=== PATIENT | female | born 1970 | race African-American/Black ===

== ENCOUNTER 2017-07-02 10:56 | Day surgery (SDC) | payer BC ==
[~2017-07-02] VITALS: Ht 180.3 cm; Wt 118.0 kg
[~2017-07-02 10:56] MED LIST: CALC-962 PO; CITA20TA7 PO; GABA-488 PO; HYDR25TA4 PO; LANS30CA43 PO; LETR2.5T5 PO; LOSA50TA36 PO; POTA10TA36 PO; VITA400C58 PO
--- OUTSIDE RECORDS SUMMARY | 2017-07-02 11:03 | XMS REPORT ---
Author Author Allegra Pineda [facility] Address [address] [place] [id number] Care Team Providers Care Finance Mgr Name Role Phone Allegra Pineda PCP Unavailable Allergies and Adverse Reactions Name Reaction Notes clobetasol rash Plan of Treatment Planned Activity Comments Planned Date Planned Time Plan/Goal MAMMOGRAM SCREENING 10/02/2011 12:00 AM THER/PROPH/DIAG INJ SC/IM 06/03/2012 12:00 AM STREP A ASSAY W/OPTIC 07/10/2014 12:00 AM Medications Active Name Start Date Estimated Completion Date SIG Comments losartan 50 mg oral tablet 11/06/2013 TAKE 1 TABLET BY MOUTH EVERY DAY losartan 50 mg oral tablet 11/07/2013 TAKE 1 TABLET BY MOUTH EVERY DAY hydrochlorothiazide 25 mg oral tablet 05/04/2014 TAKE 1/2 TABLET BY MOUTH DAILY losartan 50 mg oral tablet 08/13/2014 TAKE 1 TABLET BY MOUTH EVERY DAY Diflucan 100 mg oral tablet 09/17/2014 TAKE 1 TABLET BY ORAL ROUTE EVERY OTHER DAY Caltrate with Vitamin D3 600 mg(1,500mg) -800 unit oral tablet take 1 tablet by oral route daily Prevacid 30 mg oral capsule,delayed release(DR/EC) 03/28/2015 TAKE 1 CAPSULE (30 MG) BY ORAL ROUTE 2 TIMES PER DAY BEFORE MEALS hydrochlorothiazide 25 mg oral tablet 04/04/2015 TAKE 1/2 TABLET BY MOUTH DAILY Celexa 20 mg oral tablet take 1 tablet (20 mg) by oral route once daily gabapentin 300 mg oral capsule take 1 capsule (300 mg) by oral route 3 times per day losartan 50 mg oral tablet 05/06/2015 TAKE 1 TABLET BY MOUTH EVERY DAY acyclovir 400 mg oral tablet 06/30/2015 TAKE (1) TABLET THREE TIMES DAILY DIRECTED. letrozole 2.5 mg oral tablet take 1 tablet (2.5 mg) by oral route once daily vitamin E oral aspirin 81 mg oral tablet,chewable chew 1 tablet (81 mg) by oral route once daily Zovirax 5 % topical ointment 02/25/2016 APPLY TO THE AFFECTED AREA 3 TIMES PER DAY hydrochlorothiazide 25 mg oral tablet 02/25/2016 TAKE 1/2 TABLET BY MOUTH DAILY metformin 500 mg oral tablet extended release 24hr 03/17/2016 take 1 tablet (500 mg) by oral route once daily with the main meal of the day Prevacid 30 mg oral capsule,delayed release(DR/EC) 04/10/2016 TAKE 1 CAPSULE (30 MG) BY ORAL ROUTE 2 TIMES PER DAY BEFORE MEALS phentermine 37.5 mg oral tablet 04/17/2016 05/17/2016 take 1 tablet (37.5 mg) by oral route once daily before breakfast for 30 days Name Start Date Expiration Date SIG Comments Zithromax 250 mg oral tablet 10/31/2010 11/05/2010 take 2 tablets (500 mg) by oral route once daily for 1 day then 1 tablet (250 mg) by oral route once daily for 4 days metronidazole 500 mg oral tablet 04/27/2012 05/02/2012 take 1 tablet (500 mg) by oral route 2 times per day for 5 days phentermine 37.5 mg oral tablet 10/07/2012 11/06/2012 take 1 tablet (37.5 mg) by oral route once daily before breakfast for 30 days acyclovir 400 mg oral tablet 12/01/2012 04/12/2013 TAKE (1) TABLET THREE TIMES DAILY DIRECTED. ibuprofen 800 mg oral tablet 03/02/2013 03/27/2013 TAKE ONE TABLET BY MOUTH EVERY 6 HOURS NEEDED Zithromax Z-Chris 250 mg oral tablet 08/07/2013 08/12/2013 take 2 tablets ( 500 mg) by oral route once daily for 1 day then 1 tablet (250 mg) by oral route once daily for 4 days amoxicillin-pot clavulanate 500-125 mg oral tablet 08/15/2013 08/22/2013 take 1 tablet by oral route every 12 hours for 7 days Flagyl 500 mg oral tablet 09/15/2013 09/22/2013 take 1 tablet by oral route 2 times a day for 7 days Tamiflu 75 mg oral capsule 10/24/2013 10/29/2013 take 1 capsule (75 mg) by oral route 2 times per day for 5 days Levaquin 500 mg oral tablet 10/24/2013 10/31/2013 take 1 tablet (500 mg) by oral route once daily for 7 days amoxicillin 500 mg oral capsule 12/07/2013 12/14/2013 take 1 capsule (500 mg) by oral route every 8 hours for 7 days Diflucan 150 mg oral tablet 12/07/2013 take 1 tablet (150 mg) by oral route once hydrochlorothiazide 25 mg oral tablet 12/22/2013 12/17/2014 take 1 tablet by oral route daily for 90 days Bactrim DS 800-160 mg oral tablet 01/04/2014 01/11/2014 take 1 tablet by oral route every 12 hours for 7 days amoxicillin 500 mg oral capsule take 1 capsule (500 mg) by oral route 3 times per day for 10 days acyclovir 400 mg oral tablet 03/13/2014 TAKE (1) TABLET THREE TIMES DAILY DIRECTED. Cipro 500 mg oral tablet 05/15/2014 05/20/2014 take 1 tablet (500 mg) by oral route every 12 hours for 5 days Diflucan 100 mg oral tablet 05/15/2014 take 1 tablet by oral route every other day Augmentin 500-125 mg oral tablet 06/01/2014 take 1 tablet by oral route every 12 hours Cipro 500 mg oral tablet 09/17/2014 09/22/2014 take 1 tablet (500 mg) by oral route every 12 hours for 5 days Reglan 10 mg oral tablet 1 po q4HR PRN Zofran ODT 8 mg oral tablet,disintegrating 1 po q8HR PRN nausea Arimidex 1 mg oral tablet take 1 tablet (1 mg) by oral route once daily clarithromycin 250 mg oral tablet 12/06/2014 12/13/2014 take 1 tablet (250 mg ) by oral route every 12 hours for 7 days amoxicillin 500 mg oral capsule 01/04/2015 01/11/2015 take 1 capsule (500 mg) by oral route 3 times per day for 7 days prednisone 20 mg oral tablet 01/04/2015 01/10/2015 Take 3 tabs x 2 days; then Take 2 tabs x 2 days; then Take 1 tab x 2 days. clarithromycin 500 mg oral tablet 02/08/2015 02/15/2015 take 1 tablet (500 mg) by oral route every 12 hours for 7 days Diflucan 100 mg oral tablet 04/30/2015 TAKE 1 TABLET BY ORAL ROUTE EVERY OTHER DAY triamcinolone acetonide 0.1 % topical cream 06/21/2015 apply a thin layer to the affected area(s) by topical route 2 times per day phentermine 37.5 mg oral tablet 10/11/2015 11/10/2015 take 1 tablet (37.5 mg) by oral route once daily before breakfast for 30 daysDx: Short term weight loss Discontinued Name Start Date Discontinued Date SIG Comments Kapidex 60 mg oral capsule,biphase delayed releas 07/15/2009 01/02/2011 TAKE 1 CAPSULE BY MOUTH EVERY DAY Zovirax 5 % topical ointment 03/04/2010 10/17/2010 apply to affected area by external route 3 times a day pantoprazole 40 mg oral tablet,delayed release (DR/EC) 12/10/1979 04/01/2012 take 1 tablet (40 mg) by oral route once daily Zovirax 5 % topical ointment 06/29/2011 04/01/2012 apply to the affected area (s) by topical route 3 times per day Tessalon 200 mg oral capsule 10/02/2011 04/01/2012 take 1 capsule (200 mg) by oral route 3 times per day as needed phentermine 37.5 mg oral tablet 10/02/2011 04/01/2012 take 1 tablet (37.5 mg) by oral route once daily before breakfast for 30 daysDx: Short term weight loss not taking now promethazine 25 mg oral tablet 01/14/2012 04/01/2012 take 1 tablet by oral route every 6 hours as needed sumatriptan succinate 100 mg oral tablet 05/05/2012 06/13/2013 TAKE 1 TABLET BY MOUTH AT ONSET OF HEADACHE lansoprazole 30 mg oral capsule,delayed release(DR/EC) 07/13/2012 11/08/2012 take 1 capsule by oral route 2 times a day for 90 days Tessalon Perles 100 mg oral capsule 08/01/2012 10/07/2012 take 1 capsule by oral route 3 times a day as needed Flonase 50 mcg/actuation nasal spray,suspension 08/01/2012 10/07/2012 inhale 1 spray (50 mcg) in each nostril by intranasal route once daily Cozaar 50 mg oral tablet 08/04/2012 08/04/2013 take 1 tablet (50 mg) by oral route daily for 90 days generic on list N[place]zia 3 mg/2 mg-2 mg/ 2 mg-3 mg/1 mg oral tablet 11/17/2012 11/23/2012 take 1 tablet by oral route once daily for 28 days ibuprofen 800 mg oral tablet 03/02/2013 06/13/2013 TAKE ONE TABLET BY MOUTH EVERY 6 HOURS NEEDED aspirin 81 mg oral tablet,delayed release (DR/EC) 09/11/2013 take 1 tablet (81 mg) by oral route once daily Acid Manager Night PRN 09/11/2013 Sprintec (28) 0.25-35 mg-mcg oral tablet 11/23/2012 07/25/2013 take 1 tablet by oral route once daily Zovirax 5 % topical ointment 09/05/2013 11/09/2014 APPLY TO THE AFFECTED AREA 3 TIMES PER DAY penicillin V potassium 500 mg oral tablet 10/23/2013 10/24/2013 take 1 tablet (500 mg) by oral route 2 times per day for 7 days guaifenesin 600 mg oral tablet extended release 10/23/2013 12/11/2013 take 1 tablet (600 mg) by oral route every 12 hours as needed venlafaxine 37.5 mg oral capsule,extended release 24hr 02/28/2014 take 1 capsule (37.5 mg) by oral route once daily with food ibuprofen 800 mg oral tablet 01/01/2014 09/06/2015 TAKE ONE TABLET BY MOUTH EVERY 6 HOURS NEEDED Diflucan 100 mg oral tablet 02/09/2014 02/28/2014 take 1 tablet (100 mg) by oral route every other day Prevacid 30 mg oral capsule,delayed release(DR/EC) 02/19/2014 11/09/2014 take 1 capsule (30 mg) by oral route 2 times per day before meals Concerta 18 mg oral tablet extended release 24hr 03/09/2014 take 1 tablet ( 18 mg) by oral route once daily in the morning taking methlyphenidate tamoxifen 10 mg oral tablet 10/05/2014 persisten hot flashes, weight gain, vaginal dryness methylphenidate 10 mg oral capsule, ER biphasic 30-70 03/09/2014 take 1 capsule (10 mg) by oral route once daily in the morning before breakfast wronng instructions entered methylphenidate 10 mg oral capsule, ER biphasic 30-70 03/09/2014 06/12/2014 take 1 capsule by oral route daily as needed as needed for chronic fatigue Lomotil 2.5-0.025 mg oral tablet 06/05/2014 11/09/2014 take 2 tablets (5 mg) by oral route 3 times per day as needed guaifenesin 600 mg oral tablet extended release 07/18/2014 11/09/2014 take 1 tablet (600 mg) by oral route every 12 hours as needed loratadine 10 mg oral tablet 07/18/2014 11/09/2014 take 1 tablet (10 mg) by oral route once daily as needed triamcinolone acetonide 0.1 % topical cream 08/21/2014 11/09/2014 apply to affected area(s) by topical route BID Wednesday through Wednesday clobetasol 0.05 % topical cream 09/26/2014 11/09/2014 apply a thin layer to the affected area(s) by topical route 2 times per day Wednesday-Wednesday venlafaxine 37.5 mg oral capsule,extended release 24hr 11/09/2014 take 1 capsule (37.5 mg) by oral route once daily with food lansoprazole 30 mg oral capsule,delayed release(DR/EC) 04/19/2015 take 1 capsule (30 mg) by oral route once daily before a meal on list already Diflucan 100 mg oral tablet 10/25/2014 11/09/2014 TAKE 1 TABLET BY ORAL ROUTE EVERY OTHER DAY metronidazole 500 mg oral tablet 11/02/2014 11/09/2014 take 1 tablet by oral route 2 times a day for 7 days anastrozole 1 mg oral tablet 08/21/2015 take 1 tablet (1 mg) by oral route once daily benzonatate 200 mg oral capsule 12/06/2014 01/11/2015 take 1 capsule (200 mg) by oral route 3 times per day as needed fluconazole 100 mg oral tablet 01/11/2015 04/19/2015 take 1 tablet by oral route every other day fexofenadine 180 mg oral tablet 01/11/2015 04/19/2015 take 1 tablet (180 mg) by oral route once daily as needed guaifenesin 600 mg oral tablet extended release 12hr 01/11/2015 04/19/2015 take 1 tablet by oral route every 12 hours as needed for cough ketoconazole 2 % topical cream 04/19/2015 06/21/2015 apply to the affected area (s) by topical route 2 times per day terbinafine HCl 250 mg oral tablet 05/17/2015 06/21/2015 take 1 tablet (250 mg ) by oral route once daily for 30 days cyclobenzaprine 10 mg oral tablet 07/15/2015 07/26/2015 take 1 tablet (10 mg ) by oral route at bedtime as needed Cytotec 200 mcg oral tablet 08/22/2015 08/27/2015 take 2 tabs nite prior to procedure Diflucan 100 mg oral tablet 08/28/2015 09/06/2015 TAKE 1 TABLET BY ORAL ROUTE EVERY OTHER DAY diclofenac sodium 75 mg oral tablet,delayed release (DR/EC) 09/06/20152015 take 1 tablet (75 mg) by oral route 2 times per day with food ondansetron HCl 8 mg oral tablet 11/08/2015 03/13/2016 take 1 tablet (8 mg) by oral route every 8 hours Femara 2.5 mg oral tablet 03/13/2016 take 1 tablet (2.5 mg) by oral route once daily metronidazole 500 mg oral tablet 04/10/2016 04/17/2016 take 1 tablet (500 mg) by oral route every 12 hours for 7 days Problem List Description Status Onset Gastroesophageal Reflux Active Hypertension Active Abnormal Uterine Bleeding Active 11/13/2012 Breast Cancer Active 06/23/2013 Menopause ovarian failure Active 06/25/2014 Vitiligo Active 09/26/2014 Breast cancer Active 10/07/2014 Abnormal Breast Ultrasound Active 12/04/2014 Vital Signs Date Time BP-Sys(mm[Hg] BP-Ellen(mm[Hg]) HR(bpm) RR(rpm) Temp WT HT HC BMI BSA BMI Percentile O2 Sat(%) 04/17/2016 1:39:00 PM 130 mmHg 76 mmHg 67 bpm 18 rpm 98.4 F 250 lbs 69 in 36.92 kg/m2 2.35 m2 97 % 03/13/2016 1:48:00 PM 138 mmHg 70 mmHg 66 bpm 18 rpm 98 F 258 lbs 69 in 38.0995 kg/m 2.3869 m 98 % 03/03/2016 3:51:00 PM 113 mmHg 67 mmHg 64 bpm 96.6 F 257.25 lbs 69 in 37.99 kg/m2 2.38 m2 02/10/2016 3:09:00 PM 114 mmHg 76 mmHg 72 bpm 18 rpm 97.9 F 257 lbs 69 in 37.9519 kg/m 2.3823 m 98 % 10/11/2015 1:49:00 PM 124 mmHg 74 mmHg 55 bpm 17 rpm 98.1 F 255 lbs 69 in 37.66 kg/m2 2.37 m2 98 % 09/06/2015 2:12:00 PM 128 mmHg 70 mmHg 76 bpm 18 rpm 98.5 F 256 lbs 69 in 37.8042 kg/m 2.3776 m 99 % 08/27/2015 2:59:00 PM 117 mmHg 81 mmHg 76 bpm 97 F 256.375 lbs 69 in 37.86 kg/m2 2.38 m2 08/21/2015 2:59:00 PM 112 mmHg 74 mmHg 66 bpm 97.2 F 258 lbs 69 in 38.0995 kg/m 2.3869 m 08/06/2015 9:05:00 AM 135 mmHg 81 mmHg 81 bpm 97.2 F 251 lbs 69 in 37.07 kg/m2 2.35 m2 07/31/2015 8:38:00 AM 102 mmHg 72 mmHg 70 bpm 18 rpm 96.8 F 253 lbs 69 in 37.3612 kg/m 2.3637 m 100 % 07/26/2015 2:17:00 PM 130 mmHg 76 mmHg 82 bpm 16 rpm 97.8 F 69 in 98 % 07/15/2015 3:13:00 PM 138 mmHg 70 mmHg 65 bpm 20 rpm 98 F 251 lbs 69 in 37.0658 kg/m 2.3543 m 99 % 06/21/2015 1:49:00 PM 134 mmHg 72 mmHg 72 bpm 20 rpm 98.1 F 69 in 98 % 04/19/2015 1:32:00 PM 124 mmHg 72 mmHg 68 bpm 20 rpm 98.2 F 257 lbs 69 in 37.9519 kg/m 2.3823 m 98 % 02/08/2015 1:38:00 PM 132 mmHg 78 mmHg 63 bpm 20 rpm 98 F 259 lbs 69 in 38.25 kg/m2 2.39 m2 98 % 01/11/2015 2:08:00 PM 134 mmHg 78 mmHg 80 bpm 16 rpm 98.2 F 258 lbs 69 in 38.0995 kg/m 2.3869 m 100 % 01/04/2015 2:31:00 PM 122 mmHg 78 mmHg 62 bpm 16 rpm 96.4 F 250.25 lbs 69 in 36.96 kg/m2 2.35 m2 99 % 12/04/2014 10:53:00 AM 129 mmHg 71 mmHg 67 bpm 16 rpm 96.7 F 250 lbs 69 in 36.9182 kg/m 2.3496 m 11/09/2014 2:11:00 PM 138 mmHg 78 mmHg 58 bpm 20 rpm 98 F 252 lbs 69 in 37.21 kg/m2 2.36 m2 97 % 10/05/2014 12:18:00 PM 134 mmHg 9 mmHg 63 bpm 18 rpm 96.9 F 247 lbs 69 in 36.4751 kg/m 2.3355 m 07/10/2014 6:13:00 PM 110 mmHg 80 mmHg 63 bpm 18 rpm 98.9 F 237 lbs 69 in 35.00 kg/m2 2.29 m2 06/25/2014 2:47:00 PM 138 mmHg 65 mmHg 66 bpm 96.5 F 237 lbs 69 in 34.9984 kg/m 2.2877 m 06/12/2014 3:20:00 PM 123 mmHg 69 mmHg 64 bpm 95.5 F 235 lbs 69 in 34.70 kg/m2 2.28 m2 06/01/2014 2:57:00 PM 128 mmHg 92 mmHg 67 bpm 18 rpm 98 F 240 lbs 69 in 35.4414 kg/m 2.3021 m 99 % 03/09/2014 3:28:00 PM 132 mmHg 78 mmHg 60 bpm 20 rpm 98 F 236 lbs 69 in 34.85 kg/m2 2.28 m2 100 % 02/28/2014 9:40:00 AM 122 mmHg 72 mmHg 72 bpm 20 rpm 97.2 F 232.4 lbs 69 in 34.3191 kg/m 2.2654 m 97 % 12/22/2013 1:33:00 PM 130 mmHg 78 mmHg 76 bpm 20 rpm 98 F 239 lbs 69 in 35.29 kg/m2 2.30 m2 99 % 12/11/2013 3:57:00 PM 127 mmHg 65 mmHg 78 bpm 97 F 236 lbs 69 in 34.8508 kg/m 2.2829 m 12/07/2013 10:08:00 AM 112 mmHg 80 mmHg 64 bpm 16 rpm 96.3 F 234 lbs 98 % 10/24/2013 3:43:00 PM 128 mmHg 70 mmHg 104 bpm 22 rpm 101.6 F 226 lbs 69 in 33.374 kg/m 2.234 m 98 % 09/11/2013 10:20:00 AM 121 mmHg 67 mmHg 76 bpm 97.1 F 227 lbs 69 in 33.52 kg/m2 2.24 m2 08/04/2013 2:14:00 PM 122 mmHg 68 mmHg 78 bpm 20 rpm 97.8 F 224 lbs 69 in 33.0787 kg/m 2.2241 m 97 % 07/25/2013 9:04:00 AM 120 mmHg 78 mmHg 78 bpm 16 rpm 97 F 226 lbs 69 in 33.37 kg/m2 2.23 m2 07/18/2013 2:58:00 PM 134 mmHg 70 mmHg 72 bpm 18 rpm 98.1 F 232 lbs 69 in 34.2601 kg/m 2.2634 m 98 % 06/26/2013 3:41:00 PM 121 mmHg 79 mmHg 60 bpm 96.4 F 233 lbs 69 in 34.41 kg/m2 2.27 m2 06/23/2013 11:04:00 AM 110 mmHg 74 mmHg 80 bpm 16 rpm 232.312 lbs 69.5 in 33.8144 kg/m 2.2732 m 06/13/2013 11:30:00 AM 132 mmHg 83 mmHg 67 bpm 14 rpm 97.6 F 233 lbs 69 in 34.41 kg/m2 2.27 m2 05/19/2013 3:49:00 PM 134 mmHg 70 mmHg 70 bpm 20 rpm 98.1 F 238 lbs 69 in 35.1461 kg/m 2.2925 m 03/20/2013 3:57:00 PM 135 mmHg 85 mmHg 61 bpm 96.2 F 238 lbs 69 in 35.15 kg/m2 2.29 m2 11/17/2012 1:41:00 PM 126 mmHg 69 mmHg 66 bpm 96.4 F 243 lbs 69 in 35.8845 kg/m 2.3165 m 11/08/2012 10:56:00 AM 136 mmHg 84 mmHg 89 bpm 96.7 F 242 lbs 69 in 35.74 kg/m2 2.31 m2 10/07/2012 1:50:00 PM 128 mmHg 70 mmHg 72 bpm 18 rpm 98 F 248 lbs 69 in 36.6228 kg/m 2.3402 m 08/19/2012 2:14:00 PM 126 mmHg 70 mmHg 74 bpm 16 rpm 98.02 F 250 lbs 69 in 36.92 kg/m2 2.35 m2 08/01/2012 3:42:00 PM 125 mmHg 82 mmHg 72 bpm 20 rpm 96.3 F 251 lbs 69 in 37.0658 kg/m 2.3543 m 06/03/2012 2:39:00 PM 95 mmHg 6 mmHg 64 bpm 18 rpm 98 F 250 lbs 69 in 36.92 kg/m2 2.35 m2 100 % 05/06/2012 1:37:00 PM 102 mmHg 70 mmHg 61 bpm 18 rpm 97.6 F 249 lbs 68 in 37.8599 kg/m 2.3278 m 100 % 04/27/2012 3:02:00 PM 134 mmHg 76 mmHg 70 bpm 18 rpm 98 F 246 lbs 68 in 37.40 kg/m2 2.31 m2 04/01/2012 3:24:00 PM 122 mmHg 70 mmHg 76 bpm 18 rpm 98 F 246 lbs 68 in 37.4038 kg/m 2.3138 m 10/02/2011 1:32:00 PM 128 mmHg 70 mmHg 72 bpm 18 rpm 98.1 F 245 lbs 68 in 37.25 kg/m2 2.31 m2 08/28/2011 1:45:00 PM 118 mmHg 70 mmHg 07/31/2011 2:07:00 PM 124 mmHg 80 mmHg 66 bpm 16 rpm 98.1 F 248 lbs 68 in 37.71 kg/m2 2.32 m2 05/15/2011 1:37:00 PM 130 mmHg 72 mmHg 76 bpm 18 rpm 98.2 F 240 lbs 04/24/2011 1:32:00 PM 124 mmHg 78 mmHg 80 bpm 16 rpm 240.312 lbs 03/27/2011 3:41:00 PM 128 mmHg 70 mmHg 70 bpm 20 rpm 98.1 F 240 lbs 68 in 36.4915 kg/m 2.2854 m 02/06/2011 1:36:00 PM 128 mmHg 70 mmHg 72 bpm 18 rpm 98.2 F 243 lbs 68 in 36.95 kg/m2 2.30 m2 01/02/2011 1:53:00 PM 130 mmHg 76 mmHg 72 bpm 18 rpm 98.2 F 240 lbs 68 in 36.4915 kg/m 2.2854 m 11/14/2010 2:27:00 PM 118 mmHg 60 mmHg 70 bpm 18 rpm 97.8 F 240 lbs 68 in 36.49 kg/m2 2.29 m2 10/31/2010 3:17:00 PM 132 mmHg 70 mmHg 70 bpm 18 rpm 98.3 F 240 lbs 68 in 36.4915 kg/m 2.2854 m 10/17/2010 1:34:00 PM 132 mmHg 72 mmHg 70 bpm 18 rpm 98.1 F 241 lbs 68 in 36.64 kg/m2 2.29 m2 Social History Name Description Comments Alcohol Never Tobacco Never smoker 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#[id number] Reviewed 07/31/2015 12:00 AM Bicillin CR, 1.2 million units [facility]# 39206-128-97 Reviewed 08/06/2015 12:00 AM US EXAM PELVIC COMPLETE Returned 08/06/2015 12:00 AM SPECIMEN HANDLING OFFICE-LAB Reviewed 08/06/2015 12:00 AM CYTOPATH C/V THIN LAYER Returned 08/27/2015 12:00 AM BIOPSY OF UTERUS LINING Returned 09/06/2015 12:00 AM Orthopedic Consultation Reviewed 07/31/2011 12:00 AM MAMMOGRAM SCREENING Reviewed 01/06/2016 12:00 AM US EXAM PELVIC COMPLETE Returned 01/06/2016 12:00 AM TRANSVAGINAL US NON-OB Returned 02/10/2016 12:00 AM COMPLETE CBC W/AUTO DIFF WBC Returned 02/10/2016 12:00 AM URINE TEST Returned 02/10/2016 12:00 AM Type & Screen (PREOP) Returned 03/13/2016 12:00 AM ASSAY THYROID STIM HORMONE Reviewed 03/13/2016 12:00 AM ASSAY OF INSULIN Reviewed 03/13/2016 12:00 AM METABOLIC PANEL TOTAL CA Reviewed 03/13/2016 12:00 AM COMPLETE CBC W/AUTO DIFF WBC Reviewed 10/02/2011 12:00 AM Bicillin CR 1.2 million units IM [facility]#[id number] Reviewed 04/17/2016 12:00 AM Bicillin CR, 1.2 million units [facility]# 57974-347-09 Reviewed 04/01/2012 12:00 AM CYTOPATH C/V THIN LAYER Reviewed 04/04/2012 12:00 AM MAMMOGRAM SCREENING Reviewed 06/03/2012 12:00 AM Bicillin CR, Per 100,[address] [facility]# 72482-693-44 Reviewed 08/01/2012 12:00 AM THER/PROPH/DIAG INJ SC/IM Reviewed 08/01/2012 12:00 AM Decadron, Per [address] [facility]# [address]-53 Reviewed 08/01/2012 12:00 AM Depo-Medrol, Per 80 Mg [facility]#4603-5238-97 Reviewed 11/08/2012 12:00 AM CHYLMD TRACH DNA AMP PROBE Returned 11/08/2012 12:00 AM N.GONORRHOEAE DNA AMP PROB Returned 11/08/2012 12:00 AM ASSAY OF GONADOTROPIN (FSH) Returned 11/08/2012 12:00 AM ASSAY OF PROLACTIN Returned 11/08/2012 12:00 AM ASSAY THYROID STIM HORMONE Returned 11/08/2012 12:00 AM URINALYSIS AUTO W/SCOPE Returned 11/17/2012 12:00 AM BIOPSY OF UTERUS LINING Returned 05/19/2013 12:00 AM CYTOPATH C/V THIN LAYER Reviewed 05/19/2013 12:00 AM MAMMOGRAM SCREENING Reviewed 07/18/2013 12:00 AM Decadron [address] [facility]# [address]-27 Reviewed 07/18/2013 12:00 AM Depo-Medrol [address] [facility]#[address]-08 Reviewed 08/04/2013 12:00 AM Bicillin CR, 1.2 million units [facility]# 66141-655-53 Reviewed 12/11/2013 12:00 AM IMMUNOASSAY TUMOR CA 125 Returned 12/11/2013 12:00 AM US EXAM PELVIC COMPLETE Reviewed 12/19/2013 12:00 AM US EXAM PELVIC COMPLETE Returned 02/28/2014 12:00 AM URINALYSIS AUTO W/SCOPE Returned 02/28/2014 12:00 AM N.GONORRHOEAE DNA AMP PROB Returned 02/28/2014 12:00 AM CHLAMYDIA CULTURE Returned 02/28/2014 12:00 AM SMEAR WET M[place] SALINE/INK Returned 02/28/2014 12:00 AM TISSUE EXAM FOR FUNGI Returned 06/01/2014 12:00 AM Decadron [address] [facility]# [address]-82 Reviewed 06/01/2014 12:00 AM Depo-Medrol [address] [facility]#[address]-38 Reviewed 06/19/2014 12:00 AM US EXAM PELVIC COMPLETE Returned 06/12/2014 12:00 AM ASSAY THYROID STIM HORMONE Returned 06/12/2014 12:00 AM ASSAY OF GONADOTROPIN (FSH) Returned 06/12/2014 12:00 AM CYTOPATH C/V THIN LAYER Returned 06/12/2014 12:00 AM SPECIMEN HANDLING OFFICE-LAB Reviewed 11/09/2014 12:00 AM Breast ultrasound Reviewed 03/27/2011 12:00 AM CYTOPATH C/V THIN LAYER Reviewed 04/08/2011 12:00 AM MAMMOGRAM SCREENING Reviewed 04/02/2011 12:00 AM ASSAY OF ESTRADIOL Reviewed 04/02/2011 12:00 AM ASSAY OF GONADOTROPIN (FSH) Reviewed 04/23/2015 12:00 AM C-REACTIVE PROTEIN HS Reviewed Results Summary Data and Description Results 04/02/2011 9:50 PM ESTRADIOL 70.0 pg/mLFSH 3.10 mIU/mL 05/19/2011 4:10 PM WBC 8.4 RBC 4.22 HGB 11.40 g/dLHCT 35.70 %MCV 85.0 fLMCH 27.0 pgMCHC 31.90 g/dLRDW CV 13.70 %MPV 10.10 fLPLT 276 %NEUT 50.80 %%LYMP 38.40 %%MONO 9.30 %%EOS 1.40 %%BASO 0.10 %#NEUT 4.26 #LYMP 3.22 #MONO 0.78 #EOS 0.12 #BASO 0.01 FERRITIN 63.0 ng/mLT4 6.40 ug/dLTSH 1.320 uIU/mLVITAMIN B12 404.0 pg/mL 11/08/2012 12:30 PM TSH 1.050 uIU/mLFSH 5.50 mIU/mLCOLOR YELLOW APPEARANCE CLEAR SPEC GRAV <=1.005 pH 5.5 PROTEIN NEGATIVE GLUCOSE NEGATIVE KETONE NEGATIVE BILIRUBIN NEGATIVE BLOOD NEGATIVE NITRITE NEGATIVE LEUK SCREEN NEGATIVE CASTS/LPF NEGATIVE CRYSTALS NEGATIVE MUCOUS THRDS NEGATIVE BACTERIA FEW EPITH CELLS FEW SQUAMOUS TRICHOMONAS NEGATIVE YEAST NEGATIVE 06/19/2013 9:00 AM TEST UR NEGATIVE 07/11/2013 7:54 AM TEST UR NEGATIVE 12/11/2013 5:06 PM Cancer Antigen (CA) 125 5.0 U/mL 01/10/2014 7:35 AM GLUCOSE 106.0 mg/dLSODIUM 139.0 mmol/LPOTASSIUM 3.60 mmol/ LCHLORIDE 105.0 mmol/LCO2 26.0 mmol/LBUN 21.0 mg/dLCREATININE 1.30 mg/dLSGOT/ AST 12.0 IU/LSGPT/ALT 9.0 IU/LALK PHOS 55.0 IU/LTOTAL PROTEIN 6.80 g/dLALBUMIN 3.70 g/dLTOTAL BILI 0.50 mg/dLCALCIUM 9.0 mg/dLeGFR 44 WBC 4.7 RBC 3.50 HGB 10.20 g/dLHCT 31.40 %MCV 90.0 fLMCH 29.10 pgMCHC 32.50 g/dLRDW CV 14.20 %MPV 9.90 fLPLT 171 %NEUT 52.0 %%LYMP 34.0 %%MONO 11.60 %%EOS 2.20 %%BASO 0.20 %# NEUT 2.42 #LYMP 1.58 #MONO 0.54 #EOS 0.10 #BASO 0.01 02/28/2014 10:45 AM WET PREP NO TRICH SEEN CLUE CELLS NONE SEEN COLOR YELLOW APPEARANCE CLEAR SPEC GRAV <=1.005 pH 6.5 PROTEIN NEGATIVE GLUCOSE NEGATIVE KETONE NEGATIVE BILIRUBIN NEGATIVE BLOOD NEGATIVE NITRITE NEGATIVE LEUK SCREEN TRACE CASTS/LPF NEGATIVE CRYSTALS NEGATIVE MUCOUS THRDS NEGATIVE BACTERIA NEGATIVE EPITH CELLS FEW SQUAMOUS TRICHOMONAS NEGATIVE YEAST NEGATIVE Neisseria Gonorrhoeae NEGATIVE Chlamydia Trachomatis NEGATIVE 06/12/2014 4:30 PM FSH 27.30 mIU/mLTSH 1.350 uIU/mL 04/24/2015 6:30 PM CRP-HS 4.90 mg/L 06/25/2015 8:50 AM WBC 6.6 RBC 4.13 HGB 11.30 g/dLHCT 34.70 %MCV 84.0 fLMCH 27.40 pgMCHC 32.60 g/dLRDW CV 14.50 %MPV 9.40 fLPLT 211 %NEUT 58.40 %%LYMP 32.80 %%MONO 6.80 %%EOS 1.80 %%BASO 0.20 %#NEUT 3.88 #LYMP 2.18 #MONO 0.45 #EOS 0.12 #BASO 0.01 GLUCOSE 109.0 mg/dLSODIUM 140.0 mmol/LPOTASSIUM 3.50 mmol/ LCHLORIDE 103.0 mmol/LCO2 27.0 mmol/LBUN 16.0 mg/dLCREATININE 1.0 mg/dLSGOT/AST 13.0 IU/LSGPT/ALT 15.0 IU/LALK PHOS 84.0 IU/LTOTAL PROTEIN 6.80 g/dLALBUMIN 4.10 g/dLTOTAL BILI 0.30 mg/dLCALCIUM 9.80 mg/dLeGFR 59 CEA 0.70 ng/mLCA 27.29 22.70 U/mL 12/24/2015 8:12 AM GLUCOSE 95.0 mg/dLSODIUM 140.0 mmol/LPOTASSIUM 3.10 mmol/ LCHLORIDE 103.0 mmol/LCO2 26.0 mmol/LBUN 13.0 mg/dLCREATININE 0.90 mg/dLSGOT/ AST 13.0 IU/LSGPT/ALT 13.0 IU/LALK PHOS 81.0 IU/LTOTAL PROTEIN 6.80 g/dLALBUMIN 4.10 g/dLTOTAL BILI 0.30 mg/dLCALCIUM 9.40 mg/dLeGFR >60 mL/min/1.73mWBC 6.1 RBC 4.36 HGB 11.70 g/dLHCT 36.60 %MCV 84.0 fLMCH 26.80 pgMCHC 32.0 g/dLRDW CV 14.60 %MPV 9.20 fLPLT 224 %NEUT 56.30 %%LYMP 31.30 %%MONO 9.80 %%EOS 2.0 %%BASO 0.30 %#NEUT 3.46 #LYMP 1.92 #MONO 0.60 #EOS 0.12 #BASO 0.02 CEA 0.50 ng/mLCA 27.29 25.20 U/mL 02/14/2016 10:30 AM WBC 6.5 RBC 4.17 HGB 11.20 g/dLHCT 35.70 %MCV 86.0 fLMCH 26.90 pgMCHC 31.40 g/dLRDW CV 14.20 %MPV 9.10 fLPLT 256 %NEUT 52.50 %%LYMP 34.50 %%MONO 10.20 %%EOS 2.0 %%BASO 0.30 %#NEUT 3.40 #LYMP 2.23 #MONO 0.66 #EOS 0.13 #BASO 0.02 TEST UR NEGATIVE 03/14/2016 5:05 AM WBC 5.8 RBC 4.40 HGB 11.70 g/dLHCT 37.60 %MCV 86.0 fLMCH 26.60 pgMCHC 31.10 g/dLRDW CV 14.10 %MPV 9.70 fLPLT 220 %NEUT 43.70 %%LYMP 41.80 %%MONO 10.60 %%EOS 3.40 %%BASO 0.30 %#NEUT 2.55 #LYMP 2.44 #MONO 0.62 # EOS 0.20 #BASO 0.02 GLUCOSE 100.0 mg/dLSODIUM 142.0 mmol/LPOTASSIUM 3.20 mmol/ LCHLORIDE 104.0 mmol/LCO2 27.0 mmol/LBUN 14.0 mg/dLCREATININE 1.0 mg/dLCALCIUM 9.40 mg/dLeGFR 59 TSH 0.850 uIU/mL History Of Immunizations Not available. History of Past Illness Name Date of Onset Comments Hypertension Gastroesophageal Reflux Abnormal Uterine Bleeding 11/13/2012 Menopause ovarian failure 06/25/2014 Vitiligo 09/26/2014 Breast cancer 10/07/2014 Abnormal Breast Ultrasound 12/04/2014 Essential Hypertension Oct 17 2010 1:39PM Obesity Oct 17 2010 1:39PM Acute Pharyngitis Oct 31 2010 3:18PM Dietary Counseling Nov 14 2010 2:28PM Exercise Counseling Nov 14 2010 2:28PM Dietary Counseling Jan 02 2011 1:53PM Exercise Counseling Jan 02 2011 1:53PM Dietary Counseling Feb 06 2011 1:34PM Exercise Counseling Feb 06 2011 1:34PM Ganglion cyst, left wrist Feb 06 2011 1:34PM Leg cramps Feb 06 2011 1:34PM Dietary Counseling Mar 27 2011 3:15PM Exercise Counseling Mar 27 2011 3:15PM Routine gynecological examination Mar 27 2011 3:15PM Screening Examination for Breast Cancer Mar 27 2011 3:15PM Hot Flashes Apr 02 2011 12:30PM Left Carpal Tunnel Syndrome Apr 24 2011 1:30PM Tendonitis of left wrist Apr 24 2011 1:30PM Fatigue May 15 2011 1:34PM Left Otitis Media, Acute May 15 2011 1:34PM Dietary Counseling Jul 31 2011 2:11PM Exercise Counseling Jul 31 2011 2:11PM Dietary Counseling Oct 02 2011 1:34PM Exercise Counseling Oct 02 2011 1:34PM Bronchitis Oct 02 2011 1:34PM Routine gynecological examination Apr 01 2012 3:29PM Screening Examination for Breast Cancer Apr 01 2012 3:29PM Bacterial Vaginitis Apr 27 2012 3:05PM Tendonitis of left wrist May 06 2012 1:41PM Left Ulnar nerve entrapment May 06 2012 1:41PM Pharyngitis, Acute Jun 03 2012 2:45PM Cough Aug 01 2012 3:45PM Upper Respiratory Infections Aug 01 2012 3:45PM Obesity Aug 19 2012 2:16PM Dietary Counseling Oct 07 2012 1:53PM Exercise Counseling Oct 07 2012 1:53PM Abnormal Uterine Bleeding Nov 08 2012 11:09AM Left Lower Pelvic Pain Nov 08 2012 11:09AM Lower Back Pain Nov 08 2012 11:09AM Abnormal Uterine Bleeding Nov 17 2012 1:44PM Abnormal Uterine Bleeding Mar 20 2013 4:03PM Routine gynecological examination May 19 2013 3:54PM Screening Examination for Breast Cancer May 19 2013 3:54PM Abnormal mammogram with microcalcification Jun 13 2013 11:24AM Breast Cancer Jun 23 2013 11:44AM Abnormal Uterine Bleeding Jun 26 2013 3:47PM Bronchitis, Acute Jul 18 2013 3:01PM Bronchitis, Acute Aug 04 2013 2:17PM Pharyngitis, Acute Aug 04 2013 2:17PM Abnormal Uterine Bleeding Sep 11 2013 10:27AM Breast Cancer Sep 11 2013 10:27AM Influenza Oct 24 2013 3:43PM Abnormal Uterine Bleeding Dec 11 2013 4:04PM Breast Cancer Dec 11 2013 4:04PM Abnormal Uterine Bleeding Dec 12 2013 8:52AM Otitis Media, Acute Dec 07 2013 10:10AM Dependent Edema Dec 22 2013 1:38PM Vaginal Discharge Feb 28 2014 9:47AM Concern for Exposure to STD's Feb 28 2014 9:47AM Dysuria Feb 28 2014 9:47AM Fatigue Mar 09 2014 3:34PM Ganglion cyst of wrist, right Mar 09 2014 3:34PM Bronchitis, Acute Jun 01 2014 3:03PM Sinusitis, Acute Jun 01 2014 3:03PM Abnormal uterine bleeding Jun 12 2014 3:58PM Fibroids Jun 12 2014 3:58PM Abnormal uterine bleeding Jun 12 2014 3:26PM Breast Cancer Jun 12 2014 3:26PM Breast Cancer Jun 25 2014 2:51PM Menopause ovarian failure Jun 25 2014 2:51PM Acute pharyngitis Jul 10 2014 6:13PM Nasopharyngitis, Acute (Common Cold) Jul 10 2014 6:13PM Vitiligo Sep 26 2014 3:03PM Breast cancer Oct 07 2014 11:14AM Right Breast Mass Nov 09 2014 2:14PM Breast Cancer, Personal History Nov 09 2014 2:14PM Abnormal Breast Ultrasound Dec 04 2014 11:05AM Pharyngitis Jan 04 2015 2:38PM Bronchitis, Acute Jan 11 2015 2:10PM Bronchitis, Acute Feb 08 2015 1:41PM Hand eczema Apr 19 2015 1:35PM Screening for ischemic heart disease Apr 19 2015 1:35PM Screening for ischemic heart disease Apr 23 2015 5:18PM Eczema of both hands Jun 21 2015 1:53PM Right flank pain Jul 15 2015 3:15PM Left wrist tendonitis Jul 15 2015 3:15PM Left wrist tendonitis Jul 26 2015 2:21PM Fatigue Jul 26 2015 2:21PM Acute pharyngitis, unspecified etiology Jul 31 2015 8:41AM Routine gynecological examination Aug 06 2015 9:09AM Fibroids Aug 06 2015 10:16AM Endometrial stripe increased Aug 21 2015 3:03PM Thickened endometrium Aug 27 2015 3:02PM Left wrist tendonitis Sep 06 2015 2:16PM Tinnitus, left Oct 11 2015 1:51PM Postmenopausal vaginal bleeding Jan 01 2016 1:53PM Postmenopausal bleeding Feb 10 2016 4:01PM Postoperative Examination Following Surgery Mar 03 2016 3:54PM Fatigue Mar 13 2016 1:52PM Hypokalemia Mar 13 2016 1:52PM Weight gain Mar 13 2016 1:52PM Anemia, unspecified type Mar 13 2016 1:52PM Dietary Counseling Apr 17 2016 1:43PM Exercise Counseling Apr 17 2016 1:43PM Obesity (BMI 35.0-39.9 without comorbidity) Apr 17 2016 1:43PM Acute non-recurrent maxillary sinusitis Apr 17 2016 1:43PM Payers Insurance Name Company Name Plan Name Plan Number Policy Number Policy Group Number Start Date [facility] [id number] October History of Encounters Visit Date Visit Type Provider 03/03/[address] Allegra Pineda MD 02/19/[address] [facility] [address] Allegra Pineda MD 02/10/[address] Allegra Pineda MD 08/27/[address] Allegra Pineda MD 08/21/[address] Allegra Pineda MD 08/06/2015 Office visit 08/06/[address] Allegra Pineda MD 07/31/2015 Office visit Pepe Hannah DO 07/15/2015 Office visit Pepe Hannah DO 01/04/2015 Office visit Wicho Lomeli EDITOR NEWSPAPER 12/04/2014 Office visit Kulwant Bouman DO 10/05/2014 Procedures Kulwant Bouman DO 09/26/2014 Office visit Nelly Cardona MD 07/10/2014 Office visit Ayla Herrera APRN 06/25/2014 Office visit Jared Richey MD 06/21/2014 Office visit Nelly Cardona MD 06/12/2014 Office visit 06/12/2014 Office visit Jared Richey MD 05/10/2014 Office visit Nelly Cardona MD 02/28/2014 Office visit Shilpa Olson EDITOR NEWSPAPER 12/11/2013 Office visit Jared Richey MD 12/07/2013 Office visit Wicho Lomeli APRN 10/24/2013 Office visit Pepe Young DO 09/11/2013 Office visit Jared Richey MD 07/25/2013 Office visit Kulwant Bouman DO 07/18/2013 Office visit Pepe Hannah DO 07/11/2013 Surgery Kulwant Bouman DO 06/26/2013 Office visit Jared Richey MD 06/23/2013 Surgery Kulwant Bouman DO 06/19/2013 Surgery Kulwant Bouman DO 06/13/2013 Office visit Kulwant Bouman DO 06/09/2013 [facility] DO 03/20/2013 Office visit Jared Richey MD 11/17/2012 Procedures Jared Richey MD 11/08/2012 Office visit Jared Richey MD 08/01/2012 Office visit Shilpa Olson APRN
--- OUTSIDE RECORDS SUMMARY | 2017-07-02 11:05 | XMS REPORT ---
Author Author Allegra Pineda [facility] Address [address] [place] [id number] Care Team Providers Care Whale Fisherman Name Role Phone Allegra Pineda PCP Unavailable [...] TAKE 1 TABLET BY MOUTH EVERY DAY ibuprofen 800 mg oral tablet 01/01/2014 TAKE ONE TABLET BY MOUTH EVERY 6 HOURS NEEDED hydrochlorothiazide 25 mg oral tablet 05/04/2014 TAKE [...] (2.5 mg) by oral route once daily Name Start Date Expiration Date SIG Comments [...] per day phentermine 37.5 mg oral tablet 07/26/2015 08/25/2015 take 1 tablet (37.5 mg ) by oral route once daily before breakfast [...] mg) by oral route once daily Acid Windows Software Engineer PRN 09/11/2013 Sprintec (28) 0.25-35 mg-mcg oral [...] by oral route once daily with food Diflucan 100 mg oral tablet 02/09/2014 02/28/2014 [...] once daily in the morning before breakfast wrjason instructions entered methylphenidate 10 mg oral capsule, [...] take 2 tabs nite prior to procedure Problem List Description Status Onset Gastroesophageal Reflux Active Hypertension Active Abnormal Uterine Bleeding Active 11/13/2012 Breast Cancer Active 06/23/2013 Menopause ovarian failure Active 06/25/2014 Vitiligo Active 09/26/2014 Breast cancer Active 10/07/2014 Abnormal Breast Ultrasound Active 12/04/2014 Vital Signs Date Time BP-Sys(mm[Hg] BP-Ellen(mm[Hg]) HR(bpm) RR(rpm) Temp WT HT HC BMI BSA BMI Percentile O2 Sat(%) 08/27/2015 2:59:00 PM 117 mmHg 81 mmHg [...] Comments Alcohol Never Tobacco Never smoker 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[employer] Caffeine Current every day History of Procedures Date Ordered Description Order Status 05/15/2011 12:00 AM COMPLETE CBC W/AUTO DIFF WBC Reviewed 05/15/2011 12:00 AM VITAMIN B-12 Reviewed 05/15/2011 12:00 AM ASSAY OF FERRITIN Reviewed 05/15/2011 12:00 AM ASSAY THYROID STIM HORMONE Reviewed 05/15/2011 12:00 AM ASSAY OF TOTAL THYROXINE Reviewed 05/15/2011 12:00 AM Bicillin CR 1.2 million units IM [facility]#[id number] Reviewed 07/31/2015 12:00 AM Bicillin CR, 1.2 million units [facility]# 99055-292-41 Reviewed 08/06/2015 12:00 AM US EXAM PELVIC COMPLETE Returned 08/06/2015 12:00 AM SPECIMEN HANDLING OFFICE-LAB Reviewed 08/06/2015 12:00 AM CYTOPATH C/V THIN LAYER Returned 07/31/2011 12:00 AM MAMMOGRAM SCREENING Reviewed 10/02/2011 12:00 AM Bicillin CR 1.2 million units IM [facility]#[id number] Reviewed 04/01/2012 12:00 AM CYTOPATH C/V THIN LAYER Reviewed 04/04/2012 12:00 AM MAMMOGRAM SCREENING Reviewed 06/03/2012 12:00 AM Bicillin CR, Per 100,000 units [facility]# 53291-532-37 Reviewed 08/01/2012 12:00 AM THER/PROPH/DIAG INJ SC/IM Reviewed 08/01/2012 12:00 AM Decadron, Per 1 Mg [facility]# [address]-59 Reviewed 08/01/2012 12:00 AM Depo-Medrol, Per 80 Mg [facility]#9645-6020-39 Reviewed 11/08/2012 12:00 AM CHYLMD TRACH DNA [...] Reviewed 07/18/2013 12:00 AM Decadron 8 mg [facility]# [address]-33 Reviewed 07/18/2013 12:00 AM Depo-Medrol 80 mg [facility]#[address]-39 Reviewed 08/04/2013 12:00 AM Bicillin CR, 1.2 million units [facility]# 99937-235-26 Reviewed 12/11/2013 12:00 AM IMMUNOASSAY TUMOR CA [...] Returned 06/01/2014 12:00 AM Decadron 8 mg [facility]# [address]-34 Reviewed 06/01/2014 12:00 AM Depo-Medrol 80 mg [facility]#[address]-85 Reviewed 06/19/2014 12:00 AM US EXAM PELVIC [...] 59 CEA 0.70 ng/mLCA 27.29 22.70 U/mL History Of Immunizations Not available. History of [...] 3:03PM Thickened endometrium Aug 27 2015 3:02PM Payers Insurance Name Company Name Plan Name Plan Number Policy Number Policy Group Number Start Date [facility] [id number] October History of Encounters Visit Date Visit Type Provider 08/27/[address] Allegra Pineda MD 08/21/[address] Allegra Pineda MD 08/06/2015 Office visit 08/06/[address] Allegra Pineda MD 07/31/2015 Office visit Pepe Young DO 07/15/2015 Office visit Pepe Young DO 01/04/2015 Office visit Wicho Lomeli CUSTOM DECORATING CONSULTANT 12/04/2014 Office visit Kulwant Bouman DO 10/05/2014 Procedures Kulwant Bouman DO 09/26/2014 Office visit Nelly Cardona MD 07/10/2014 Office visit Ayla Herrera APRN 06/25/2014 Office visit Jared Richey MD 06/21/2014 Office visit Nelly Cardona MD 06/12/2014 Office visit 06/12/2014 Office visit Jared Richey MD 05/10/2014 Office visit Nelly Cardona MD 02/28/2014 Office visit Shilpa Olson APRN 12/11/2013 Office visit Jared Richey MD 12/07/2013 Office visit Wicho Lomeli APRN 10/24/2013 Office visit Pepe Young DO 09/11/2013 Office visit Jared Richey MD 07/25/2013 Office visit Kulwant Hernandez DO 07/18/2013 Office visit Pepe Young DO 07/11/2013 Surgery Kulwant Bouman DO 06/26/2013 Office visit Jared Richey MD 06/23/2013 Surgery Kulwant Bouman DO 06/19/2013 Surgery Kulwant Bouman DO 06/13/2013 Office visit Kulwant Hilluman DO 06/09/2013 [facility] DO 03/20/2013 Office visit Jared Richey MD 11/17/2012 Procedures Jared Richey MD 11/08/2012 Office visit Jared Richey MD 08/01/2012 Office visit Shilpa Olson APRN
--- OUTSIDE RECORDS SUMMARY | 2017-07-02 11:06 | XMS REPORT ---
Author Author Wicho Lomeli [facility] Address [address] [place], [place] [id number] Care Team Providers Care Stapler Hand Name Role Phone Wicho Lomeli PCP Allergies and Adverse Reactions Name Reaction Notes clobetasol rash Plan of Treatment Planned Activity Comments Planned Date Planned Time Plan/Goal MAMMOGRAM SCREENING 10/02/2011 12:00 AM THER/PROPH/DIAG INJ SC/IM 06/03/2012 12:00 AM STREP A ASSAY W/OPTIC 07/10/2014 12:00 AM C-REACTIVE PROTEIN HS 04/23/2015 12:00 AM Medications Active Name Start Date [...] TABLET BY ORAL ROUTE EVERY OTHER DAY anastrozole 1 mg oral tablet take 1 tablet (1 mg) by oral route once daily Caltrate-600 + D Vit D3 (800) 600 mg(1,500mg) -800 unit oral tablet take [...] by oral route 3 times per day ketoconazole 2 % topical cream 04/19/2015 apply to the affected area(s) by topical route 2 times per day Name Start Date Expiration Date SIG Comments [...] route every 12 hours for 7 days Discontinued Name Start Date Discontinued Date SIG [...] mg) by oral route once daily Acid Car Stower PRN 09/11/2013 Sprintec (28) 0.25-35 mg-mcg oral [...] once daily in the morning before breakfast wronn instructions entered methylphenidate 10 mg oral capsule, [...] 2 times a day for 7 days benzonatate 200 mg oral capsule 12/06/2014 01/11/2015 [...] every 12 hours as needed for cough Problem List Description Status Onset Gastroesophageal Reflux Active Hypertension Active Abnormal Uterine Bleeding Active 11/13/2012 Breast Cancer Active 06/23/2013 Menopause ovarian failure Active 06/25/2014 Vitiligo Active 09/26/2014 Breast cancer Active 10/07/2014 Abnormal Breast Ultrasound Active 12/04/2014 Vital Signs Date Time BP-Sys(mm[Hg] BP-Ellen(mm[Hg]) HR(bpm) RR(rpm) Temp WT HT HC BMI BSA BMI Percentile O2 Sat(%) 04/19/2015 1:32:00 PM 124 mmHg 72 mmHg 68 bpm 20 rpm 98.2 F 257 lbs 69 in 37.95 kg/m2 2.38 m2 98 % 02/08/2015 1:38:00 PM 132 mmHg 78 mmHg 63 bpm 20 rpm 98 F 259 lbs 69 in 38.2472 kg/m 2.3915 m 98 % 01/11/2015 2:08:00 PM 134 mmHg 78 mmHg 80 bpm 16 rpm 98.2 F 258 lbs 69 in 38.10 kg/m2 2.39 m2 100 % 01/04/2015 2:31:00 PM 122 mmHg 78 mmHg 62 bpm 16 rpm 96.4 F 250.25 lbs 69 in 36.9551 kg/m 2.3508 m 99 % 12/04/2014 10:53:00 AM 129 mmHg 71 mmHg 67 bpm 16 rpm 96.7 F 250 lbs 69 in 36.92 kg/m2 2.35 m2 11/09/2014 2:11:00 PM 138 mmHg 78 mmHg 58 bpm 20 rpm 98 F 252 lbs 69 in 37.2135 kg/m 2.359 m 97 % 10/05/2014 12:18:00 PM 134 mmHg 9 mmHg 63 bpm 18 rpm 96.9 F 247 lbs 69 in 36.48 kg/m2 2.34 m2 07/10/2014 6:13:00 PM 110 mmHg 80 mmHg 63 bpm 18 rpm 98.9 F 237 lbs 69 in 34.9984 kg/m 2.2877 m 06/25/2014 2:47:00 PM 138 mmHg 65 mmHg 66 bpm 96.5 F 237 lbs 69 in 35.00 kg/m2 2.29 m2 06/12/2014 3:20:00 PM 123 mmHg 69 mmHg 64 bpm 95.5 F 235 lbs 69 in 34.7031 kg/m 2.278 m 06/01/2014 2:57:00 PM 128 mmHg 92 mmHg 67 bpm 18 rpm 98 F 240 lbs 69 in 35.44 kg/m2 2.30 m2 99 % 03/09/2014 3:28:00 PM 132 mmHg 78 mmHg 60 bpm 20 rpm 98 F 236 lbs 69 in 34.8508 kg/m 2.2829 m 100 % 02/28/2014 9:40:00 AM 122 mmHg 72 mmHg 72 bpm 20 rpm 97.2 F 232.4 lbs 69 in 34.32 kg/m2 2.27 m2 97 % 12/22/2013 1:33:00 PM 130 mmHg 78 mmHg 76 bpm 20 rpm 98 F 239 lbs 69 in 35.2938 kg/m 2.2973 m 99 % 12/11/2013 3:57:00 PM 127 mmHg 65 mmHg 78 bpm 97 F 236 lbs 69 in 34.85 kg/m2 2.28 m2 12/07/2013 10:08:00 AM 112 mmHg 80 mmHg 64 bpm 16 rpm 96.3 F 234 lbs 98 % 10/24/2013 3:43:00 PM 128 mmHg 70 mmHg 104 bpm 22 rpm 101.6 F 226 lbs 69 in 33.37 kg/m2 2.23 m2 98 % 09/11/2013 10:20:00 AM 121 mmHg 67 mmHg 76 bpm 97.1 F 227 lbs 69 in 33.5217 kg/m 2.2389 m 08/04/2013 2:14:00 PM 122 mmHg 68 mmHg 78 bpm 20 rpm 97.8 F 224 lbs 69 in 33.08 kg/m2 2.22 m2 97 % 07/25/2013 9:04:00 AM 120 mmHg 78 mmHg 78 bpm 16 rpm 97 F 226 lbs 69 in 33.374 kg/m 2.234 m 07/18/2013 2:58:00 PM 134 mmHg 70 mmHg 72 bpm 18 rpm 98.1 F 232 lbs 69 in 34.26 kg/m2 2.26 m2 98 % 06/26/2013 3:41:00 PM 121 mmHg 79 mmHg 60 bpm 96.4 F 233 lbs 69 in 34.4077 kg/m 2.2683 m 06/23/2013 11:04:00 AM 110 mmHg 74 mmHg 80 bpm 16 rpm 232.312 lbs 69.5 in 33.81 kg/m2 2.27 m2 06/13/2013 11:30:00 AM 132 mmHg 83 mmHg 67 bpm 14 rpm 97.6 F 233 lbs 69 in 34.4077 kg/m 2.2683 m 05/19/2013 3:49:00 PM 134 mmHg 70 mmHg 70 bpm 20 rpm 98.1 F 238 lbs 69 in 35.15 kg/m2 2.29 m2 03/20/2013 3:57:00 PM 135 mmHg 85 mmHg 61 bpm 96.2 F 238 lbs 69 in 35.1461 kg/m 2.2925 m 11/17/2012 1:41:00 PM 126 mmHg 69 mmHg 66 bpm 96.4 F 243 lbs 69 in 35.88 kg/m2 2.32 m2 11/08/2012 10:56:00 AM 136 mmHg 84 mmHg 89 bpm 96.7 F 242 lbs 69 in 35.7368 kg/m 2.3117 m 10/07/2012 1:50:00 PM 128 mmHg 70 mmHg 72 bpm 18 rpm 98 F 248 lbs 69 in 36.62 kg/m2 2.34 m2 08/19/2012 2:14:00 PM 126 mmHg 70 mmHg 74 bpm 16 rpm 98.02 F 250 lbs 69 in 36.9182 kg/m 2.3496 m 08/01/2012 3:42:00 PM 125 mmHg 82 mmHg 72 bpm 20 rpm 96.3 F 251 lbs 69 in 37.07 kg/m2 2.35 m2 06/03/2012 2:39:00 PM 95 mmHg 6 mmHg 64 bpm 18 rpm 98 F 250 lbs 69 in 36.9182 kg/m 2.3496 m 100 % 05/06/2012 1:37:00 PM 102 mmHg 70 mmHg 61 bpm 18 rpm 97.6 F 249 lbs 68 in 37.86 kg/m2 2.33 m2 100 % 04/27/2012 3:02:00 PM 134 mmHg 76 mmHg 70 bpm 18 rpm 98 F 246 lbs 68 in 37.4038 kg/m 2.3138 m 04/01/2012 3:24:00 PM 122 mmHg 70 mmHg 76 bpm 18 rpm 98 F 246 lbs 68 in 37.40 kg/m2 2.31 m2 10/02/2011 1:32:00 PM 128 mmHg 70 mmHg 72 bpm 18 rpm 98.1 F 245 lbs 68 in 37.2517 kg/m 2.3091 m 08/28/2011 1:45:00 PM 118 mmHg 70 mmHg 07/31/2011 2:07:00 PM 124 mmHg 80 mmHg 66 bpm 16 rpm 98.1 F 248 lbs 68 in 37.7079 kg/m 2.3232 m 05/15/2011 1:37:00 PM 130 mmHg 72 mmHg 76 bpm 18 rpm 98.2 F 240 lbs 04/24/2011 1:32:00 PM 124 mmHg 78 mmHg 80 bpm 16 rpm 240.312 lbs 03/27/2011 3:41:00 PM 128 mmHg 70 mmHg 70 bpm 20 rpm 98.1 F 240 lbs 68 in 36.49 kg/m2 2.29 m2 02/06/2011 1:36:00 PM 128 mmHg 70 mmHg 72 bpm 18 rpm 98.2 F 243 lbs 68 in 36.9476 kg/m 2.2996 m 01/02/2011 1:53:00 PM 130 mmHg 76 mmHg 72 bpm 18 rpm 98.2 F 240 lbs 68 in 36.49 kg/m2 2.29 m2 11/14/2010 2:27:00 PM 118 mmHg 60 mmHg 70 bpm 18 rpm 97.8 F 240 lbs 68 in 36.4915 kg/m 2.2854 m 10/31/2010 3:17:00 PM 132 mmHg 70 mmHg 70 bpm 18 rpm 98.3 F 240 lbs 68 in 36.49 kg/m2 2.29 m2 10/17/2010 1:34:00 PM 132 mmHg 72 mmHg 70 bpm 18 rpm 98.1 F 241 lbs 68 in 36.6435 kg/m 2.2901 m Social History Name Description Comments Alcohol Never Tobacco Never smoker 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[employer] Caffeine Current every day History of Procedures Date Ordered Description Order Status 05/15/2011 12:00 AM COMPLETE CBC W/AUTO DIFF WBC Reviewed 05/15/2011 12:00 AM VITAMIN B-12 Reviewed 05/15/2011 12:00 AM ASSAY OF FERRITIN Reviewed 05/15/2011 12:00 AM ASSAY THYROID STIM HORMONE Reviewed 05/15/2011 12:00 AM ASSAY OF TOTAL THYROXINE Reviewed 05/15/2011 12:00 AM Bicillin CR 1.2 million units IM [facility]#[id number] Reviewed 07/31/2011 12:00 AM MAMMOGRAM SCREENING Reviewed 10/02/2011 12:00 AM Bicillin CR 1.2 million units IM [facility]#[id number] Reviewed 04/01/2012 12:00 AM CYTOPATH C/V THIN LAYER Reviewed 04/04/2012 12:00 AM MAMMOGRAM SCREENING Reviewed 06/03/2012 12:00 AM Bicillin CR, Per 100,000 units [facility]# 35961-763-12 Reviewed 08/01/2012 12:00 AM THER/PROPH/DIAG INJ SC/IM Reviewed 08/01/2012 12:00 AM Decadron, Per 1 Mg [facility]# [address]-46 Reviewed 08/01/2012 12:00 AM Depo-Medrol, Per 80 Mg [facility]#1998-0143-22 Reviewed 11/08/2012 12:00 AM CHYLMD TRACH DNA [...] Reviewed 07/18/2013 12:00 AM Decadron 8 mg [facility]# [address]-97 Reviewed 07/18/2013 12:00 AM Depo-Medrol 80 mg [facility]#[address]-80 Reviewed 08/04/2013 12:00 AM Bicillin CR, 1.2 million units [facility]# 44312-549-99 Reviewed 12/11/2013 12:00 AM IMMUNOASSAY TUMOR CA [...] Returned 06/01/2014 12:00 AM Decadron 8 mg [facility]# [address]-63 Reviewed 06/01/2014 12:00 AM Depo-Medrol 80 mg [facility]#[address]-34 Reviewed 06/19/2014 12:00 AM US EXAM PELVIC [...] 12:00 AM ASSAY OF GONADOTROPIN (FSH) Reviewed Results Summary Data and Description Results [...] 4:30 PM FSH 27.30 mIU/mLTSH 1.350 uIU/mL History Of Immunizations Not available. History [...] ischemic heart disease Apr 23 2015 5:18PM Payers Insurance Name Company Name Plan Name Plan Number Policy Number Policy Group Number [id number] October History of Encounters Visit Date Visit Type Provider 01/04/2015 Office visit Wicho Lomeli APRN 12/04/2014 Office visit Kulwant Hernandez DO 10/05/2014 Procedures Kulwant Hernandez DO 09/26/2014 Office visit Nelly Cardona MD 07/10/2014 Office visit Ayla Herrera APRN 06/25/2014 Office visit Jared Richey MD 06/21/2014 Office visit Nelly Cardona MD 06/12/2014 Office visit Jared Richey MD 05/10/2014 Office visit Nelly Cardona MD 02/28/2014 Office visit Shilpa Olson APRN 12/11/2013 Office visit Jared Richey MD 12/07/2013 Office visit Wicho Lomeli DEVULCANIZER OPERATOR 10/24/2013 Office visit Pepe Young DO 09/11/2013 Office visit Jared Richey MD 07/25/2013 Office visit Kulwant Hernandez DO 07/18/2013 Office visit Pepe Young DO 07/11/2013 Surgery Kulwant David DO 06/26/2013 Office visit Jared Richey MD 06/23/2013 Surgery Kulwant David DO 06/19/2013 Surgery Kulwant Sergiouman DO 06/13/2013 Office visit Kulwant Hernandez DO 06/09/2013 [facility] DO 03/20/2013 Office visit Jared Richey MD 11/17/2012 Procedures Jared Richey MD 11/08/2012 Office visit Jared Richey MD 08/01/2012 Office visit Shilpa Olson APRN
--- OUTSIDE RECORDS SUMMARY | 2017-07-02 11:07 | XMS REPORT ---
Author Author Allegra Pineda [facility] Address [address] [place] [phone] Care Team Providers Care Slate Worker Name Role Phone Allegra Pineda PCP Unavailable Allergies and Adverse Reactions Name Reaction Notes clobetasol rash Plan of Treatment Planned Activity Comments Planned Date Planned Time Plan/Goal US EXAM PELVIC COMPLETE 08/06/2015 12:00 AM CYTOPATH C/V THIN LAYER 08/06/2015 12:00 AM MAMMOGRAM SCREENING 10/02/2011 12:00 AM THER/PROPH/DIAG INJ [...] (1 mg) by oral route once daily Caltrate with Vitamin D3 600 mg(1,500mg) -800 [...] TAKE (1) TABLET THREE TIMES DAILY DIRECTED. phentermine 37.5 mg oral tablet 07/26/2015 08/25/2015 take 1 tablet (37.5 mg ) by oral route once daily before breakfast for 30 daysDx: Short term weight loss Name Start Date Expiration Date SIG Comments [...] by topical route 2 times per day Discontinued Name Start Date Discontinued Date SIG [...] mg) by oral route once daily Acid Door Furring Installer PRN 09/11/2013 Sprintec (28) 0.25-35 mg-mcg oral [...] by oral route at bedtime as needed Problem List Description Status Onset Gastroesophageal Reflux Active Hypertension Active Abnormal Uterine Bleeding Active 11/13/2012 Breast Cancer Active 06/23/2013 Menopause ovarian failure Active 06/25/2014 Vitiligo Active 09/26/2014 Breast cancer Active 10/07/2014 Abnormal Breast Ultrasound Active 12/04/2014 Vital Signs Date Time BP-Sys(mm[Hg] BP-Ellen(mm[Hg]) HR(bpm) RR(rpm) Temp WT HT HC BMI BSA BMI Percentile O2 Sat(%) 08/06/2015 9:05:00 AM 135 mmHg 81 mmHg [...] Comments Alcohol Never Tobacco Never 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 Caffeine Current every day History of Procedures Date Ordered Description Order Status 05/15/2011 12:00 AM COMPLETE CBC W/AUTO DIFF WBC Reviewed 05/15/2011 12:00 AM VITAMIN B-12 Reviewed 05/15/2011 12:00 AM ASSAY OF FERRITIN Reviewed 05/15/2011 12:00 AM ASSAY THYROID STIM HORMONE Reviewed 05/15/2011 12:00 AM ASSAY OF TOTAL THYROXINE Reviewed 05/15/2011 12:00 AM Bicillin CR 1.2 million units IM [facility]#[id number] Reviewed 07/31/2015 12:00 AM Bicillin CR, 1.2 million units [facility]# 03561-324-70 Reviewed 07/31/2011 12:00 AM MAMMOGRAM SCREENING Reviewed 10/02/2011 12:00 AM Bicillin CR 1.2 million units IM [facility]#[id number] Reviewed 04/01/2012 12:00 AM CYTOPATH C/V THIN LAYER Reviewed 04/04/2012 12:00 AM MAMMOGRAM SCREENING Reviewed 06/03/2012 12:00 AM Bicillin CR, Per 100,000 units [facility]# 09608-058-31 Reviewed 08/01/2012 12:00 AM THER/PROPH/DIAG INJ SC/IM Reviewed 08/01/2012 12:00 AM Decadron, Per 1 Mg [facility]# [address]-58 Reviewed 08/01/2012 12:00 AM Depo-Medrol, Per 80 Mg [facility]#1194-9300-42 Reviewed 11/08/2012 12:00 AM CHYLMD TRACH DNA [...] Reviewed 07/18/2013 12:00 AM Decadron 8 mg [facility]# [address]-32 Reviewed 07/18/2013 12:00 AM Depo-Medrol 80 mg [facility]#[address]-00 Reviewed 08/04/2013 12:00 AM Bicillin CR, 1.2 million units [facility]# 87584-271-74 Reviewed 12/11/2013 12:00 AM IMMUNOASSAY TUMOR CA [...] Returned 06/01/2014 12:00 AM Decadron 8 mg [facility]# [address]-88 Reviewed 06/01/2014 12:00 AM Depo-Medrol 80 mg [facility]#[address]-46 Reviewed 06/19/2014 12:00 AM US EXAM PELVIC [...] 2015 9:09AM Fibroids Aug 06 2015 10:16AM Payers Insurance Name Company Name Plan Name Plan Number Policy Number Policy Group Number [id number] October History of Encounters Visit Date Visit Type Provider 08/06/[address] Allegra Pineda MD 07/31/2015 Office visit Pepe Young DO 07/15/2015 Office visit Pepe Young DO 01/04/2015 Office visit Wihco Lomeli APRN 12/04/2014 Office visit Kulwant Hernandez [...] Kulwant Hernandez DO 07/18/2013 Office visit Pepe Canote DO 07/11/2013 Surgery Kulwant David DO 06/26/2013 Office visit Jared Richey MD 06/23/2013 Surgery Kulwant David DO 06/19/2013 Surgery Kulwant David DO 06/13/2013 Office visit Kulwant Hernandez DO 06/09/2013 [facility] DO 03/20/2013 Office visit Jared Richey MD 11/17/2012 Procedures Jared Richey MD 11/08/2012 Office visit Jared Richey MD 08/01/2012 Office visit Shilpa Olson APRN
--- OUTSIDE RECORDS SUMMARY | 2017-07-02 11:09 | XMS REPORT ---
Author Author Allegra Pineda [facility] Address [address] [place] [phone] Care Team Providers Care Medical Accounting Clerk Name Role Phone Allegra Pineda PCP Unavailable [...] (2.5 mg) by oral route once daily diclofenac sodium 75 mg oral tablet,delayed release (DR/EC) 09/06/2015 take 1 tablet (75 mg) by oral route 2 times per day with food phentermine 37.5 mg oral tablet 10/11/2015 11/10/2015 take 1 tablet (37.5 mg) by oral route once daily before breakfast for 30 daysDx: Short term weight loss ondansetron HCl 8 mg oral tablet 11/08/2015 take 1 tablet (8 mg) by oral route every 8 hours Name Start Date Expiration Date SIG Comments [...] mg) by oral route once daily Acid Core Machine Tender PRN 09/11/2013 Sprintec (28) 0.25-35 mg-mcg oral [...] TABLET BY ORAL ROUTE EVERY OTHER DAY Problem List Description Status Onset Gastroesophageal Reflux Active Hypertension Active Abnormal Uterine Bleeding Active 11/13/2012 Breast Cancer Active 06/23/2013 Menopause ovarian failure Active 06/25/2014 Vitiligo Active 09/26/2014 Breast cancer Active 10/07/2014 Abnormal Breast Ultrasound Active 12/04/2014 Vital Signs Date Time BP-Sys(mm[Hg] BP-Ellen(mm[Hg]) HR(bpm) RR(rpm) Temp WT HT HC BMI BSA BMI Percentile O2 Sat(%) 10/11/2015 1:49:00 PM 124 mmHg 74 mmHg [...] Comments Alcohol Never Tobacco 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#[id number] Reviewed 07/31/2015 12:00 AM Bicillin CR, 1.2 million units [facility]# 51158-955-47 Reviewed 08/06/2015 12:00 AM US EXAM PELVIC COMPLETE Returned 08/06/2015 12:00 AM SPECIMEN HANDLING OFFICE-LAB Reviewed 08/06/2015 12:00 AM CYTOPATH C/V THIN LAYER Returned 08/27/2015 12:00 AM BIOPSY OF UTERUS LINING Returned 09/06/2015 12:00 AM Orthopedic Consultation Reviewed 07/31/2011 12:00 AM MAMMOGRAM SCREENING Reviewed 10/02/2011 12:00 AM Bicillin CR 1.2 million units IM [facility]#[id number] Reviewed 04/01/2012 12:00 AM CYTOPATH C/V THIN LAYER Reviewed 04/04/2012 12:00 AM MAMMOGRAM SCREENING Reviewed 06/03/2012 12:00 AM Bicillin CR, Per 100,000 units [facility]# 49050-424-91 Reviewed 08/01/2012 12:00 AM THER/PROPH/DIAG INJ SC/IM Reviewed 08/01/2012 12:00 AM Decadron, Per 1 Mg [facility]# [address]-17 Reviewed 08/01/2012 12:00 AM Depo-Medrol, Per 80 Mg [facility]#8703-2274-68 Reviewed 11/08/2012 12:00 AM CHYLMD TRACH DNA [...] Reviewed 07/18/2013 12:00 AM Decadron 8 mg [facility]# [address]-20 Reviewed 07/18/2013 12:00 AM Depo-Medrol 80 mg [facility]#[address]-88 Reviewed 08/04/2013 12:00 AM Bicillin CR, 1.2 million units [facility]# 89917-738-51 Reviewed 12/11/2013 12:00 AM IMMUNOASSAY TUMOR CA [...] Returned 06/01/2014 12:00 AM Decadron 8 mg [facility]# [address]-39 Reviewed 06/01/2014 12:00 AM Depo-Medrol 80 mg [facility]#[address]-55 Reviewed 06/19/2014 12:00 AM US EXAM PELVIC [...] 2:16PM Tinnitus, left Oct 11 2015 1:51PM Payers Insurance Name Company Name Plan Name Plan Number Policy Number Policy Group Number Start Date BCBS Bcbs [facility] [id number] October History of Encounters Visit Date Visit Type Provider 08/27/[address] Allegra Pineda MD 08/21/[address] Allegra Pineda MD 08/06/2015 Office visit 08/06/[address] Allegra Pineda MD 07/31/2015 Office visit Pepe Young DO 07/15/2015 Office visit Pepe Young DO 01/04/2015 Office visit Wicho Lomeli APRN 12/04/2014 Office visit Kulwant Hernandez DO 10/05/2014 Procedures Kulwant Hernandez DO 09/26/2014 Office visit Nelly Cardona MD 07/10/2014 Office visit Ayla Herrera APRN 06/25/2014 Office visit Jared Richey MD 06/21/2014 Office visit Nelly Cardona MD 06/12/2014 Office visit 06/12/2014 Office visit Jared Richey MD 05/10/2014 Office visit Nelly Cardona MD 02/28/2014 Office visit Shilpa Olson PRODUCT SUPPORT ENGINEER 12/11/2013 Office visit Jared Richey MD 12/07/2013 Office visit Wicho Lomeli APRN 10/24/2013 Office visit Pepe Young DO 09/11/2013 Office visit Jared Richey MD 07/25/2013 Office visit Kulwant Hernandez DO 07/18/2013 Office visit Pepe Young DO 07/11/2013 Surgery Kulwant Hernandez DO 06/26/2013 Office visit Jared Richey MD 06/23/2013 Surgery Kulwant Hernandez DO 06/19/2013 Surgery Kulwant Hernandez DO 06/13/2013 Office visit Kulwant Hernandez DO 06/09/2013 [facility] Quin Russofield DO 03/20/2013 Office visit Jared Richey MD 11/17/2012 Procedures Jared Richey MD 11/08/2012 Office visit Jared Richey MD 08/01/2012 Office visit Shilpa Olson APRN
--- OUTSIDE RECORDS SUMMARY | 2017-07-02 11:10 | XMS REPORT ---
Author Author lAlegra Pineda [facility] Address [address] [place] [phone] Care Team Providers Care Antique Clock Repairer Name Role Phone Allegra Pineda PCP Unavailable [...] BY MOUTH EVERY 6 HOURS NEEDED Zithromax Z-Chrsi 250 mg oral tablet 08/07/2013 08/12/2013 take [...] mg) by oral route once daily Acid Physical Integration Practitioner PRN 09/11/2013 Sprintec (28) 0.25-35 mg-mcg oral [...] Onset Gastroesophageal Reflux Active Hypertension Active Abnormal uterine bleeding Active 11/13/2012 Breast Cancer Active 06/23/2013 Menopause [...] Comments Alcohol Never Tobacco 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 History of Procedures Date Ordered Description Order Status 05/15/2011 12:00 AM COMPLETE CBC W/AUTO DIFF WBC Reviewed 05/15/2011 12:00 AM VITAMIN B-12 Reviewed 05/15/2011 12:00 AM ASSAY OF FERRITIN Reviewed 05/15/2011 12:00 AM ASSAY THYROID STIM HORMONE Reviewed 05/15/2011 12:00 AM ASSAY OF TOTAL THYROXINE Reviewed 05/15/2011 12:00 AM Bicillin CR 1.2 million units IM [facility]#[id number] Reviewed 07/31/2015 12:00 AM Bicillin CR, 1.2 million units [facility]# 68246-536-99 Reviewed 08/06/2015 12:00 AM US EXAM PELVIC COMPLETE Returned 08/06/2015 12:00 AM SPECIMEN HANDLING OFFICE-LAB Reviewed 08/06/2015 12:00 AM CYTOPATH C/V THIN LAYER Returned 08/27/2015 12:00 AM BIOPSY OF UTERUS LINING Returned 09/06/2015 12:00 AM Orthopedic Consultation Reviewed 07/31/2011 12:00 AM MAMMOGRAM SCREENING Reviewed 10/02/2011 12:00 AM Bicillin CR 1.2 million units IM [facility]#[id number] Reviewed 04/01/2012 12:00 AM CYTOPATH C/V THIN LAYER Reviewed 04/04/2012 12:00 AM MAMMOGRAM SCREENING Reviewed 06/03/2012 12:00 AM Bicillin CR, Per 100,000 units [facility]# 11631-474-59 Reviewed 08/01/2012 12:00 AM THER/PROPH/DIAG INJ SC/IM Reviewed 08/01/2012 12:00 AM Decadron, Per 1 Mg [facility]# [address]-71 Reviewed 08/01/2012 12:00 AM Depo-Medrol, Per 80 Mg [facility]#7691-8072-79 Reviewed 11/08/2012 12:00 AM CHYLMD TRACH DNA [...] Reviewed 07/18/2013 12:00 AM Decadron 8 mg [facility]# [address]-76 Reviewed 07/18/2013 12:00 AM Depo-Medrol 80 mg [facility]#[address]-78 Reviewed 08/04/2013 12:00 AM Bicillin CR, 1.2 million units [facility]# 15223-656-18 Reviewed 12/11/2013 12:00 AM IMMUNOASSAY TUMOR CA [...] Returned 06/01/2014 12:00 AM Decadron 8 mg [facility]# [address]-10 Reviewed 06/01/2014 12:00 AM Depo-Medrol 80 mg [facility]#[address]-54 Reviewed 06/19/2014 12:00 AM US EXAM PELVIC [...] of Onset Comments Hypertension Gastroesophageal Reflux Abnormal uterine bleeding 11/13/2012 Menopause ovarian failure 06/25/2014 Vitiligo 09/26/2014 [...] Policy Group Number Start Date BCBS Bcbs [id number] [id number] October History of Encounters Visit Date Visit [...] Cardona MD 02/28/2014 Office visit Shilpa Olson RUBBER TUBING SPLICER 12/11/2013 Office visit Jared Richey MD 12/07/2013 [...] 06/13/2013 Office visit Kulwant Hernandez DO 06/09/2013 [facility] DO 03/20/2013 Office visit Jared Richey MD 11/17/2012 Procedures Jared Richey MD 11/08/2012 Office visit Jared Richey MD 08/01/2012 Office visit Shilpa Olson APRN
--- OUTSIDE RECORDS SUMMARY | 2017-07-02 11:11 | XMS REPORT ---
Author Author Allegra Pineda [facility] Address [address] [place] [phone] Care Team Providers Care Vehicle Sales Professional Name Role Phone Allegra Pineda PCP Unavailable [...] 02/25/2016 TAKE 1/2 TABLET BY MOUTH DAILY phentermine 37.5 mg oral tablet 03/13/2016 04/12/2016 take 1 tablet (37.5 mg) by oral route once daily before breakfast for 30 days metformin 500 mg oral tablet extended release 24hr 03/17/2016 take 1 tablet (500 mg) by oral route once daily with the main meal of the day Prevacid 30 mg oral capsule,delayed release(DR/EC) 04/10/2016 TAKE 1 CAPSULE (30 MG) BY ORAL ROUTE 2 TIMES PER DAY BEFORE MEALS metronidazole 500 mg oral tablet 04/10/2016 04/17/2016 take 1 tablet (500 mg) by oral route every 12 hours for 7 days Name Start Date Expiration Date SIG [...] mg) by oral route once daily Acid Plate Slitter And Inspector PRN 09/11/2013 Sprintec (28) 0.25-35 mg-mcg oral [...] (2.5 mg) by oral route once daily Problem List Description Status Onset Gastroesophageal Reflux Active Hypertension Active Abnormal Uterine Bleeding Active 11/13/2012 Breast Cancer Active 06/23/2013 Menopause ovarian failure Active 06/25/2014 Vitiligo Active 09/26/2014 Breast cancer Active 10/07/2014 Abnormal Breast Ultrasound Active 12/04/2014 Vital Signs Date Time BP-Sys(mm[Hg] BP-Ellen(mm[Hg]) HR(bpm) RR(rpm) Temp WT HT HC BMI BSA BMI Percentile O2 Sat(%) 03/13/2016 1:48:00 PM 138 mmHg 70 mmHg 66 bpm 18 rpm 98 F 258 lbs 69 in 38.10 kg/m2 2.39 m2 98 % 03/03/2016 3:51:00 PM 113 mmHg 67 mmHg 64 bpm 96.6 F 257.25 lbs 69 in 37.9888 kg/m 2.3834 m 02/10/2016 3:09:00 PM 114 mmHg 76 mmHg 72 bpm 18 rpm 97.9 F 257 lbs 69 in 37.95 kg/m2 2.38 m2 98 % 10/11/2015 1:49:00 PM 124 mmHg 74 mmHg 55 bpm 17 rpm 98.1 F 255 lbs 69 in 37.6565 kg/m 2.373 m 98 % 09/06/2015 2:12:00 PM 128 mmHg 70 mmHg 76 bpm 18 rpm 98.5 F 256 lbs 69 in 37.80 kg/m2 2.38 m2 99 % 08/27/2015 2:59:00 PM 117 mmHg 81 mmHg 76 bpm 97 F 256.375 lbs 69 in 37.8596 kg/m 2.3794 m 08/21/2015 2:59:00 PM 112 mmHg 74 mmHg 66 bpm 97.2 F 258 lbs 69 in 38.10 kg/m2 2.39 m2 08/06/2015 9:05:00 AM 135 mmHg 81 mmHg 81 bpm 97.2 F 251 lbs 69 in 37.0658 kg/m 2.3543 m 07/31/2015 8:38:00 AM 102 mmHg 72 mmHg 70 bpm 18 rpm 96.8 F 253 lbs 69 in 37.36 kg/m2 2.36 m2 100 % 07/26/2015 2:17:00 PM 130 mmHg 76 mmHg 82 bpm 16 rpm 97.8 F 69 in 98 % 07/15/2015 3:13:00 PM 138 mmHg 70 mmHg 65 bpm 20 rpm 98 F 251 lbs 69 in 37.07 kg/m2 2.35 m2 99 % 06/21/2015 1:49:00 PM 134 mmHg [...] F 252 lbs 69 in 37.21 kg/m2 2.359 m 97 % 10/05/2014 12:18:00 PM 134 mmHg 9 mmHg 63 bpm 18 rpm 96.9 F 247 lbs 69 in 36.4751 kg/m 2.34 m2 07/10/2014 6:13:00 PM 110 mmHg 80 mmHg 63 bpm 18 rpm 98.9 F 237 lbs 69 in 35.00 kg/m2 2.2877 m 06/25/2014 2:47:00 PM 138 mmHg 65 mmHg 66 bpm 96.5 F 237 lbs 69 in 34.9984 kg/m 2.29 m2 06/12/2014 3:20:00 PM 123 mmHg 69 mmHg 64 bpm 95.5 F 235 lbs 69 in 34.70 kg/m2 2.278 m 06/01/2014 2:57:00 PM 128 mmHg 92 mmHg 67 bpm 18 rpm 98 F 240 lbs 69 in 35.4414 kg/m 2.30 m2 99 % 03/09/2014 3:28:00 PM 132 mmHg 78 mmHg 60 bpm 20 rpm 98 F 236 lbs 69 in 34.85 kg/m2 2.2829 m 100 % 02/28/2014 9:40:00 AM 122 mmHg 72 mmHg 72 bpm 20 rpm 97.2 F 232.4 lbs 69 in 34.3191 kg/m 2.27 m2 97 % 12/22/2013 1:33:00 PM 130 mmHg 78 mmHg 76 bpm 20 rpm 98 F 239 lbs 69 in 35.29 kg/m2 2.2973 m 99 % 12/11/2013 3:57:00 PM 127 mmHg 65 mmHg 78 bpm 97 F 236 lbs 69 in 34.8508 kg/m 2.28 m2 12/07/2013 10:08:00 AM 112 mmHg 80 mmHg 64 bpm 16 rpm 96.3 F 234 lbs 98 % 10/24/2013 3:43:00 PM 128 mmHg 70 mmHg 104 bpm 22 rpm 101.6 F 226 lbs 69 in 33.374 kg/m 2.23 m2 98 % 09/11/2013 10:20:00 AM 121 mmHg 67 mmHg 76 bpm 97.1 F 227 lbs 69 in 33.52 kg/m2 2.2389 m 08/04/2013 2:14:00 PM 122 mmHg 68 mmHg 78 bpm 20 rpm 97.8 F 224 lbs 69 in 33.0787 kg/m 2.22 m2 97 % 07/25/2013 9:04:00 AM 120 mmHg 78 mmHg 78 bpm 16 rpm 97 F 226 lbs 69 in 33.37 kg/m2 2.234 m 07/18/2013 2:58:00 PM 134 mmHg 70 mmHg 72 bpm 18 rpm 98.1 F 232 lbs 69 in 34.2601 kg/m 2.26 m2 98 % 06/26/2013 3:41:00 PM 121 mmHg 79 mmHg 60 bpm 96.4 F 233 lbs 69 in 34.41 kg/m2 2.2683 m 06/23/2013 11:04:00 AM 110 mmHg 74 mmHg 80 bpm 16 rpm 232.312 lbs 69.5 in 33.8144 kg/m 2.27 m2 06/13/2013 11:30:00 AM 132 mmHg 83 mmHg 67 bpm 14 rpm 97.6 F 233 lbs 69 in 34.41 kg/m2 2.2683 m 05/19/2013 3:49:00 PM 134 mmHg 70 mmHg 70 bpm 20 rpm 98.1 F 238 lbs 69 in 35.1461 kg/m 2.29 m2 03/20/2013 3:57:00 PM 135 mmHg 85 mmHg 61 bpm 96.2 F 238 lbs 69 in 35.15 kg/m2 2.2925 m 11/17/2012 1:41:00 PM 126 mmHg 69 mmHg 66 bpm 96.4 F 243 lbs 69 in 35.8845 kg/m 2.32 m2 11/08/2012 10:56:00 AM 136 mmHg 84 mmHg 89 bpm 96.7 F 242 lbs 69 in 35.74 kg/m2 2.3117 m 10/07/2012 1:50:00 PM 128 mmHg 70 mmHg 72 bpm 18 rpm 98 F 248 lbs 69 in 36.6228 kg/m 2.34 m2 08/19/2012 2:14:00 PM 126 mmHg 70 mmHg 74 bpm 16 rpm 98.02 F 250 lbs 69 in 36.92 kg/m2 2.3496 m 08/01/2012 3:42:00 PM 125 mmHg 82 mmHg 72 bpm 20 rpm 96.3 F 251 lbs 69 in 37.0658 kg/m 2.35 m2 06/03/2012 2:39:00 PM 95 mmHg 6 mmHg 64 bpm 18 rpm 98 F 250 lbs 69 in 36.92 kg/m2 2.3496 m 100 % 05/06/2012 1:37:00 PM 102 mmHg 70 mmHg 61 bpm 18 rpm 97.6 F 249 lbs 68 in 37.8599 kg/m 2.33 m2 100 % 04/27/2012 3:02:00 PM 134 mmHg 76 mmHg 70 bpm 18 rpm 98 F 246 lbs 68 in 37.40 kg/m2 2.3138 m 04/01/2012 3:24:00 PM 122 mmHg 70 mmHg 76 bpm 18 rpm 98 F 246 lbs 68 in 37.4038 kg/m 2.31 m2 10/02/2011 1:32:00 PM 128 mmHg 70 mmHg 72 bpm 18 rpm 98.1 F 245 lbs 68 in 37.25 kg/m2 2.3091 m 08/28/2011 1:45:00 PM 118 mmHg [...] Comments Alcohol Never Tobacco 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 Current every day History of Procedures Date Ordered Description Order Status 05/15/2011 12:00 AM COMPLETE CBC W/AUTO DIFF WBC Reviewed 05/15/2011 12:00 AM VITAMIN B-12 Reviewed 05/15/2011 12:00 AM ASSAY OF FERRITIN Reviewed 05/15/2011 12:00 AM ASSAY THYROID STIM HORMONE Reviewed 05/15/2011 12:00 AM ASSAY OF TOTAL THYROXINE Reviewed 05/15/2011 12:00 AM Bicillin CR 1.2 million units IM [facility]#[id number] Reviewed 07/31/2015 12:00 AM Bicillin CR, 1.2 million units [facility]# 09077-400-31 Reviewed 08/06/2015 12:00 AM US EXAM PELVIC [...] 1.2 million units IM [facility]#[id number] Reviewed 04/01/2012 12:00 AM CYTOPATH C/V THIN LAYER Reviewed 04/04/2012 12:00 AM MAMMOGRAM SCREENING Reviewed 06/03/2012 12:00 AM Bicillin CR, Per 100,000 units [facility]# 24613-373-23 Reviewed 08/01/2012 12:00 AM THER/PROPH/DIAG INJ SC/IM Reviewed 08/01/2012 12:00 AM Decadron, Per 1 Mg [facility]# [address]-64 Reviewed 08/01/2012 12:00 AM Depo-Medrol, Per 80 Mg [facility]#0998-7256-73 Reviewed 11/08/2012 12:00 AM CHYLMD TRACH DNA [...] Decadron 8 mg [facility]# [address]-65 Reviewed 07/18/2013 12:00 AM Depo-Medrol 80 mg [facility]#[address]-31 Reviewed 08/04/2013 12:00 AM Bicillin CR, 1.2 million units [facility]# 63862-800-72 Reviewed 12/11/2013 12:00 AM IMMUNOASSAY TUMOR CA [...] Decadron 8 mg [facility]# [address]-50 Reviewed 06/01/2014 12:00 AM Depo-Medrol 80 mg [facility]#[address]-06 Reviewed 06/19/2014 12:00 AM US EXAM PELVIC [...] Anemia, unspecified type Mar 13 2016 1:52PM Payers Insurance Name Company Name Plan Name Plan Number Policy Number Policy Group Number [id number] October History of Encounters Visit Date Visit Type Provider 03/03/[address] Allegra Pineda MD 02/19/2016 [facility] Dr. Allegra Pineda MD 02/10/[address] [...] Office visit Pepe Young DO 07/11/2013 Surgery Kulwantcolin Hernandez DO 06/26/2013 Office visit Jared Richey MD 06/23/2013 Surgery Kulwant David DO 06/19/2013 Surgery Kulwant Sergiouman DO 06/13/2013 Office visit Kulwant Hernandez DO 06/09/2013 [facility] DO 03/20/2013 Office visit Jared Richey MD 11/17/2012 Procedures Jared Richey MD 11/08/2012 Office visit Jared Richey MD 08/01/2012 Office visit Shilpa Olson APRN
--- OUTSIDE RECORDS SUMMARY | 2017-07-02 11:13 | XMS REPORT ---
Author Author Allegra Pineda [facility] Address [address] [place] [id number] Care Team Providers Care Batting Machine Operator Name Role Phone Allegra Pineda PCP Unavailable Allergies and Adverse Reactions Name Reaction Notes clobetasol rash Plan of Treatment Planned Activity Comments Planned Date Planned Time Plan/Goal CYTOPATH C/V THIN LAYER 08/06/2015 9:57 AM US EXAM PELVIC COMPLETE 08/06/2015 12:00 AM MAMMOGRAM SCREENING 10/02/2011 12:00 [...] mg) by oral route once daily Acid Miller Head Wet Process PRN 09/11/2013 Sprintec (28) 0.25-35 mg-mcg oral [...] Comments Alcohol Never Tobacco Never smoker 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#[id number] Reviewed 07/31/2015 12:00 AM Bicillin CR, 1.2 million units [facility]# 65053-415-50 Reviewed 07/31/2011 12:00 AM MAMMOGRAM SCREENING Reviewed 10/02/2011 12:00 AM Bicillin CR 1.2 million units IM [facility]#[id number] Reviewed 04/01/2012 12:00 AM CYTOPATH C/V THIN LAYER Reviewed 04/04/2012 12:00 AM MAMMOGRAM SCREENING Reviewed 06/03/2012 12:00 AM Bicillin CR, Per 100,000 units [facility]# 18576-508-64 Reviewed 08/01/2012 12:00 AM THER/PROPH/DIAG INJ SC/IM Reviewed 08/01/2012 12:00 AM Decadron, Per 1 Mg [facility]# [address]-91 Reviewed 08/01/2012 12:00 AM Depo-Medrol, Per 80 Mg [facility]#6014-3018-50 Reviewed 11/08/2012 12:00 AM CHYLMD TRACH DNA [...] 07/18/2013 12:00 AM Decadron 8 mg [facility]# [address]-51 Reviewed 07/18/2013 12:00 AM Depo-Medrol 80 mg [facility]#[address]-50 Reviewed 08/04/2013 12:00 AM Bicillin CR, 1.2 million units [facility]# 50786-386-10 Reviewed 12/11/2013 12:00 AM IMMUNOASSAY TUMOR CA [...] 06/01/2014 12:00 AM Decadron 8 mg [facility]# [address]-27 Reviewed 06/01/2014 12:00 AM Depo-Medrol 80 mg [facility]#[address]-71 Reviewed 06/19/2014 12:00 AM US EXAM PELVIC [...] Number Policy Group Number [id number] October History of Encounters Visit Date Visit [...] 06/13/2013 Office visit Kulwant Hernandez DO 06/09/2013 [facility] DO 03/20/2013 Office visit Jared Richey MD 11/17/2012 Procedures Jared Richey MD 11/08/2012 Office visit Jared Richey MD 08/01/2012 Office visit Shilpa Olson APRN
--- OUTSIDE RECORDS SUMMARY | 2017-07-02 11:14 | XMS REPORT ---
Author Author Allegra Pineda [facility] Address [address] [place] [id number] Care Team Providers Care Chief Deputy Court Clerk Name Role Phone Allegra Pineda PCP [...] (2.5 mg) by oral route once daily ondansetron HCl 8 mg oral tablet 11/08/2015 take 1 tablet (8 mg) by oral route every 8 hours vitamin E oral aspirin 81 mg oral tablet,chewable chew 1 tablet (81 mg) by oral route once daily Femara 2.5 mg oral tablet take 1 tablet (2.5 mg) by oral route once daily Zovirax 5 % topical ointment 02/25/2016 APPLY TO THE AFFECTED AREA 3 TIMES PER DAY hydrochlorothiazide 25 mg oral tablet 02/25/2016 TAKE 1/2 TABLET BY MOUTH DAILY Name Start Date Expiration Date SIG Comments [...] mg) by oral route once daily Acid In Store Marketer PRN 09/11/2013 Sprintec (28) 0.25-35 mg-mcg oral [...] route 2 times per day with food Problem List Description Status Onset Gastroesophageal Reflux Active Hypertension Active Abnormal Uterine Bleeding Active 11/13/2012 Breast Cancer Active 06/23/2013 Menopause ovarian failure Active 06/25/2014 Vitiligo Active 09/26/2014 Breast cancer Active 10/07/2014 Abnormal Breast Ultrasound Active 12/04/2014 Vital Signs Date Time BP-Sys(mm[Hg] BP-Ellen(mm[Hg]) HR(bpm) RR(rpm) Temp WT HT HC BMI BSA BMI Percentile O2 Sat(%) 03/03/2016 3:51:00 PM 113 mmHg 67 mmHg [...] Comments Alcohol Never Tobacco Never smoker 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[employer] Caffeine Current every day History of Procedures Date Ordered Description Order Status 05/15/2011 12:00 AM COMPLETE CBC W/AUTO DIFF WBC Reviewed 05/15/2011 12:00 AM VITAMIN B-12 Reviewed 05/15/2011 12:00 AM ASSAY OF FERRITIN Reviewed 05/15/2011 12:00 AM ASSAY THYROID STIM HORMONE Reviewed 05/15/2011 12:00 AM ASSAY OF TOTAL THYROXINE Reviewed 05/15/2011 12:00 AM Bicillin CR 1.2 million units IM [facility]#[id number] Reviewed 07/31/2015 12:00 AM Bicillin CR, 1.2 million units [facility]# 29979-606-17 Reviewed 08/06/2015 12:00 AM US EXAM PELVIC [...] 12:00 AM Type & Screen (PREOP) Returned 10/02/2011 12:00 AM Bicillin CR 1.2 million units IM [facility]#[id number] Reviewed 04/01/2012 12:00 AM CYTOPATH C/V THIN LAYER Reviewed 04/04/2012 12:00 AM MAMMOGRAM SCREENING Reviewed 06/03/2012 12:00 AM Bicillin CR, Per 100,000 units [facility]# 97965-500-79 Reviewed 08/01/2012 12:00 AM THER/PROPH/DIAG INJ SC/IM Reviewed 08/01/2012 12:00 AM Decadron, Per 1 Mg [facility]# [address]-03 Reviewed 08/01/2012 12:00 AM Depo-Medrol, Per 80 Mg [facility]#8919-1309-51 Reviewed 11/08/2012 12:00 AM CHYLMD TRACH DNA [...] Reviewed 07/18/2013 12:00 AM Decadron 8 mg [facility]# [address]-47 Reviewed 07/18/2013 12:00 AM Depo-Medrol 80 mg [facility]#[address]-79 Reviewed 08/04/2013 12:00 AM Bicillin CR, 1.2 million units [facility]# 77528-636-72 Reviewed 12/11/2013 12:00 AM IMMUNOASSAY TUMOR CA [...] Returned 06/01/2014 12:00 AM Decadron 8 mg [facility]# [address]-48 Reviewed 06/01/2014 12:00 AM Depo-Medrol 80 mg [facility]#[address]-41 Reviewed 06/19/2014 12:00 AM US EXAM PELVIC [...] #EOS 0.13 #BASO 0.02 TEST UR NEGATIVE History Of Immunizations Not available. History of [...] Examination Following Surgery Mar 03 2016 3:54PM Payers Insurance Name Company Name Plan Name Plan Number Policy Number Policy Group Number [facility] Date [id number] October History of Encounters Visit Date Visit Type Provider 03/03/[address] Allegra Pineda MD 02/19/[address] Allegra Pineda MD 02/10/2016 Surgery [...] Cardona MD 07/10/2014 Office visit Ayla Herrera [employer] MANA[employer] RO[employer] PRODUCTION 06/25/2014 Office visit Jared Richey MD 06/21/2014 Office visit Nelly Cardona MD 06/12/2014 Office visit 06/12/2014 Office visit Jared Richey MD 05/10/2014 Office visit Nelly Cardona MD 02/28/2014 Office visit Shilpa Olson APRN 12/11/2013 Office visit Jared Richey MD 12/07/2013 Office visit Wicho Lomeli GENERAL MANAGER ROAD PRODUCTION 10/24/2013 Office visit Pepe Young DO 09/11/2013 Office visit Jared Richey MD 07/25/2013 Office visit Kulwant Hernandez DO 07/18/2013 Office visit Pepe Young DO 07/11/2013 Surgery Kulwant Hernandez DO 06/26/2013 Office visit Jared Richey MD 06/23/2013 Surgery Kulwant Hernandez DO 06/19/2013 Surgery Kulwant Hernandez DO 06/13/2013 Office visit Kulwant Hernandez DO 06/09/2013 [facility] DO 03/20/2013 Office visit Jared Richey MD 11/17/2012 Procedures Jared Richey MD 11/08/2012 Office visit Jared Richey MD 08/01/2012 Office visit Shilpa Olson APRN
[2017-07-02] MEDS ORDERED: ceFAZolin 1 GM/NS 50 ML IVPB IV ONE ×2 (11:15)
--- OUTSIDE RECORDS SUMMARY | 2017-07-02 11:15 | XMS REPORT ---
Author Author [facility] Organization [facility] Address [address] [place], [place] [id number] Care Team Providers Care Communications Lead Name Role Phone PCP Unavailable Allergies and Adverse Reactions Name Reaction Notes clobetasol rash Plan of Treatment Planned Activity Comments Planned Date Planned Time Plan/Goal MAMMOGRAM SCREENING 10/02/2011 12:00 AM STREP A ASSAY W/OPTIC 07/10/2014 12:00 AM Medications Active Name Start Date Estimated Completion Date SIG Comments losartan oral tablet 50 mg 11/06/2013 TAKE 1 TABLET BY MOUTH EVERY DAY losartan oral tablet 50 mg 11/07/2013 TAKE 1 TABLET BY MOUTH EVERY DAY ibuprofen oral tablet 800 mg 01/01/2014 TAKE ONE TABLET BY MOUTH EVERY 6 HOURS NEEDED hydrochlorothiazide oral tablet 25 mg 05/04/2014 TAKE 1/2 TABLET BY MOUTH DAILY losartan oral tablet 50 mg 08/13/2014 TAKE 1 TABLET BY MOUTH EVERY DAY Diflucan oral tablet 100 mg 09/17/2014 TAKE 1 TABLET BY ORAL ROUTE EVERY OTHER DAY lansoprazole oral capsule,delayed release(DR/EC) 30 mg take 1 capsule ( 30 mg) by oral route once daily before a meal anastrozole oral tablet 1 mg take 1 tablet (1 mg) by oral route once daily Caltrate-600 + D Vit D3 (800) oral tablet 600 mg(1,500mg) -800 unit take 1 tablet by oral route daily fluconazole oral tablet 100 mg 01/11/2015 take 1 tablet by oral route every other day fexofenadine oral tablet 180 mg 01/11/2015 take 1 tablet (180 mg) by oral route once daily as needed guaifenesin oral tablet extended release 12hr 600 mg 01/11/2015 take 1 tablet by oral route every 12 hours as needed for cough clarithromycin oral tablet 500 mg 02/08/2015 02/15/2015 take 1 tablet (500 mg) by oral route every 12 hours for 7 days Name Start Date Expiration Date SIG Comments Zithromax Oral Tablet 250 mg 10/31/2010 11/05/2010 take 2 tablets (500 mg) by oral route once daily for 1 day then 1 tablet (250 mg) by oral route once daily for 4 days metronidazole Oral tablet 500 mg 04/27/2012 05/02/2012 take 1 tablet (500 mg) by oral route 2 times per day for 5 days phentermine Oral tablet 37.5 mg 10/07/2012 11/06/2012 take 1 tablet (37.5 mg) by oral route once daily before breakfast for 30 days acyclovir Oral tablet 400 mg 12/01/2012 04/12/2013 TAKE (1) TABLET THREE TIMES DAILY DIRECTED. ibuprofen oral tablet 800 mg 03/02/2013 03/27/2013 TAKE ONE TABLET BY MOUTH EVERY 6 HOURS NEEDED Zithromax Z-Chris oral tablet 250 mg 08/07/2013 08/12/2013 take 2 tablets ( 500 mg) by oral route once daily for 1 day then 1 tablet (250 mg) by oral route once daily for 4 days amoxicillin-pot clavulanate oral tablet 500-125 mg 08/15/2013 08/22/2013 take 1 tablet by oral route every 12 hours for 7 days Flagyl oral tablet 500 mg 09/15/2013 09/22/2013 take 1 tablet by oral route 2 times a day for 7 days Tamiflu oral capsule 75 mg 10/24/2013 10/29/2013 take 1 capsule (75 mg) by oral route 2 times per day for 5 days Levaquin oral tablet 500 mg 10/24/2013 10/31/2013 take 1 tablet (500 mg) by oral route once daily for 7 days amoxicillin oral capsule 500 mg 12/07/2013 12/14/2013 take 1 capsule (500 mg) by oral route every 8 hours for 7 days Diflucan oral tablet 150 mg 12/07/2013 take 1 tablet (150 mg) by oral route once hydrochlorothiazide oral tablet 25 mg 12/22/2013 12/17/2014 take 1 tablet by oral route daily for 90 days Bactrim DS oral tablet 800-160 mg 01/04/2014 01/11/2014 take 1 tablet by oral route every 12 hours for 7 days amoxicillin oral capsule 500 mg take 1 capsule (500 mg) by oral route 3 times per day for 10 days acyclovir oral tablet 400 mg 03/13/2014 TAKE (1) TABLET THREE TIMES DAILY DIRECTED. Cipro oral tablet 500 mg 05/15/2014 05/20/2014 take 1 tablet (500 mg) by oral route every 12 hours for 5 days Diflucan oral tablet 100 mg 05/15/2014 take 1 tablet by oral route every other day Augmentin oral tablet 500-125 mg 06/01/2014 take 1 tablet by oral route every 12 hours Cipro oral tablet 500 mg 09/17/2014 09/22/2014 take 1 tablet (500 mg) by oral route every 12 hours for 5 days Reglan oral tablet 10 mg 1 po q4HR PRN Zofran ODT oral tablet,disintegrating 8 mg 1 po q8HR PRN nausea Arimidex oral tablet 1 mg take 1 tablet (1 mg) by oral route once daily clarithromycin oral tablet 250 mg 12/06/2014 12/13/2014 take 1 tablet (250 mg ) by oral route every 12 hours for 7 days amoxicillin oral capsule 500 mg 01/04/2015 01/11/2015 take 1 capsule (500 mg) by oral route 3 times per day for 7 days prednisone oral tablet 20 mg 01/04/2015 01/10/2015 Take 3 tabs x 2 days; then Take 2 tabs x 2 days; then Take 1 tab x 2 days. Discontinued Name Start Date Discontinued Date SIG Comments Kapidex Oral Cap, Delayed Rel., Multiphasic 60 mg 07/15/2009 01/02/2011 TAKE 1 CAPSULE BY MOUTH EVERY DAY Zovirax Topical Ointment 5 % 03/04/2010 10/17/2010 apply to affected area by external route 3 times a day pantoprazole Oral Tablet, Delayed Release (E.C.) 40 mg 12/10/1979 04/01/2012 take 1 tablet (40 mg) by oral route once daily Zovirax Topical Ointment 5 % 06/29/2011 04/01/2012 apply to the affected area (s) by topical route 3 times per day Tessalon Oral Capsule 200 mg 10/02/2011 04/01/2012 take 1 capsule (200 mg) by oral route 3 times per day as needed phentermine Oral Tablet 37.5 mg 10/02/2011 04/01/2012 take 1 tablet (37.5 mg) by oral route once daily before breakfast for 30 daysDx: Short term weight loss not taking now promethazine Oral Tablet 25 mg 01/14/2012 04/01/2012 take 1 tablet by oral route every 6 hours as needed sumatriptan succinate Oral tablet 100 mg 05/05/2012 06/13/2013 TAKE 1 TABLET BY MOUTH AT ONSET OF HEADACHE lansoprazole Oral capsule,delayed release(DR/EC) 30 mg 07/13/2012 11/08/2012 take 1 capsule by oral route 2 times a day for 90 days Corby Brewsteres Oral capsule 100 mg 08/01/2012 10/07/2012 take 1 capsule by oral route 3 times a day as needed Flonase Nasal [place], Suspension 50 mcg/actuation 08/01/2012 10/07/2012 inhale 1 spray (50 mcg) in each nostril by intranasal route once daily Cozaar Oral Tablet 50 mg 08/04/2012 08/04/2013 take 1 tablet (50 mg) by oral route daily for 90 days generic on list [place]zia Oral tablet 3 mg/2 mg-2 mg/ 2 mg-3 mg/1 mg 11/17/2012 11/23/2012 take 1 tablet by oral route once daily for 28 days ibuprofen Oral tablet 800 mg 03/02/2013 06/13/2013 TAKE ONE TABLET BY MOUTH EVERY 6 HOURS NEEDED aspirin Oral tablet,delayed release (DR/EC) 81 mg 09/11/2013 take 1 tablet (81 mg) by oral route once daily Acid Die Repair Machinist PRN 09/11/2013 Sprintec (28) oral tablet 0.25-35 mg-mcg 11/23/2012 07/25/2013 take 1 tablet by oral route once daily Zovirax topical ointment 5 % 09/05/2013 11/09/2014 APPLY TO THE AFFECTED AREA 3 TIMES PER DAY penicillin V potassium oral tablet 500 mg 10/23/2013 10/24/2013 take 1 tablet (500 mg) by oral route 2 times per day for 7 days guaifenesin oral tablet extended release 600 mg 10/23/2013 12/11/2013 take 1 tablet (600 mg) by oral route every 12 hours as needed venlafaxine oral capsule,extended release 24hr 37.5 mg 02/28/2014 take 1 capsule (37.5 mg) by oral route once daily with food Diflucan oral tablet 100 mg 02/09/2014 02/28/2014 take 1 tablet (100 mg) by oral route every other day Prevacid oral capsule,delayed release(DR/EC) 30 mg 02/19/2014 11/09/2014 take 1 capsule (30 mg) by oral route 2 times per day before meals Concerta oral tablet extended release 24hr 18 mg 03/09/2014 take 1 tablet ( 18 mg) by oral route once daily in the morning taking methlyphenidate tamoxifen oral tablet 10 mg 10/05/2014 persisten hot flashes, weight gain, vaginal dryness methylphenidate oral capsule, ER biphasic 30-70 10 mg 03/09/2014 take 1 capsule (10 mg) by oral route once daily in the morning before breakfast wronng instructions entered methylphenidate oral capsule, ER biphasic 30-70 10 mg 03/09/2014 06/12/2014 take 1 capsule by oral route daily as needed as needed for chronic fatigue Lomotil oral tablet 2.5-0.025 mg 06/05/2014 11/09/2014 take 2 tablets (5 mg) by oral route 3 times per day as needed guaifenesin oral tablet extended release 600 mg 07/18/2014 11/09/2014 take 1 tablet (600 mg) by oral route every 12 hours as needed loratadine oral tablet 10 mg 07/18/2014 11/09/2014 take 1 tablet (10 mg) by oral route once daily as needed triamcinolone acetonide topical cream 0.1 % 08/21/2014 11/09/2014 apply to affected area(s) by topical route BID Wednesday through Wednesday clobetasol topical cream 0.05 % 09/26/2014 11/09/2014 apply a thin layer to the affected area(s) by topical route 2 times per day Wednesday-Wednesday venlafaxine oral capsule,extended release 24hr 37.5 mg 11/09/2014 take 1 capsule (37.5 mg) by oral route once daily with food Diflucan oral tablet 100 mg 10/25/2014 11/09/2014 TAKE 1 TABLET BY ORAL ROUTE EVERY OTHER DAY metronidazole oral tablet 500 mg 11/02/2014 11/09/2014 take 1 tablet by oral route 2 times a day for 7 days benzonatate oral capsule 200 mg 12/06/2014 01/11/2015 take 1 capsule (200 mg) by oral route 3 times per day as needed Problem List Description Status Onset Gastroesophageal Reflux Active Hypertension Active Abnormal Uterine Bleeding Active 11/13/2012 Breast Cancer Active 06/23/2013 Menopause ovarian failure Active 06/25/2014 Vitiligo Active 09/26/2014 Breast cancer Active 10/07/2014 Abnormal Breast Ultrasound Active 12/04/2014 Vital Signs Date Time BP-Sys(mm[Hg] BP-Ellen(mm[Hg]) HR(bpm) RR(rpm) Temp WT HT HC BMI BSA BMI Percentile O2 Sat(%) 02/08/2015 1:38:00 PM 132 mmHg 78 mmHg [...] m2 Social History Name Description Comments Alcohol Tobacco Never smoker 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 History of Procedures Date Ordered Description Order Status 05/15/2011 12:00 AM COMPLETE CBC W/AUTO DIFF WBC Reviewed 05/15/2011 12:00 AM VITAMIN B-12 Reviewed 05/15/2011 12:00 AM ASSAY OF FERRITIN Reviewed 05/15/2011 12:00 AM ASSAY THYROID STIM HORMONE Reviewed 05/15/2011 12:00 AM ASSAY OF TOTAL THYROXINE Reviewed 07/31/2011 12:00 AM MAMMOGRAM SCREENING Reviewed 04/01/2012 12:00 AM CYTOPATH C/V THIN LAYER Reviewed 04/04/2012 12:00 AM MAMMOGRAM SCREENING Reviewed 08/01/2012 12:00 AM THER/PROPH/DIAG INJ SC/IM Reviewed 11/08/2012 12:00 AM CHYLMD TRACH DNA [...] Reviewed 05/19/2013 12:00 AM MAMMOGRAM SCREENING Reviewed 12/11/2013 12:00 AM IMMUNOASSAY TUMOR CA 125 Returned 12/11/2013 12:00 AM US EXAM PELVIC COMPLETE Reviewed 12/19/2013 12:00 AM US EXAM PELVIC COMPLETE Returned 02/28/2014 12:00 AM URINALYSIS AUTO W/SCOPE Returned 02/28/2014 12:00 AM N.GONORRHOEAE DNA AMP PROB Returned 02/28/2014 12:00 AM CHLAMYDIA CULTURE Returned 02/28/2014 12:00 AM SMEAR WET M[place] SALINE/INK Returned 02/28/2014 12:00 AM TISSUE EXAM FOR FUNGI Returned 06/19/2014 12:00 AM US EXAM PELVIC COMPLETE [...] CELLS FEW SQUAMOUS TRICHOMONAS NEGATIVE YEAST NEGATIVE 06/12/2014 4:30 PM FSH 27.30 mIU/mLTSH [...] 02 2011 12:30PM Left Carpal Tunnel Syndrome Sep 2010 1:30PM Tendonitis of left wrist Apr 24 [...] 2:10PM Bronchitis, Acute Feb 08 2015 1:41PM Payers Insurance Name Company Name Plan Name Plan Number Policy Number Policy Group Number Start Date [facility] [id number] October History of Encounters Visit Date Visit Type Provider 01/04/2015 Office visit Wicho Lomeli PERFECT BIND MACHINE OPERATOR 12/04/2014 Office visit Kulwant Hernandez DO 10/05/2014 Procedures Kulwant Hernandez DO 09/26/2014 Office visit Nelly Cardona MD 07/10/2014 Office visit Ayla Herrera PERFECT BIND MACHINE OPERATOR 06/25/2014 Office visit Jared Richey MD 06/21/2014 [...] 06/13/2013 Office visit Kulwant Hernandez DO 06/09/2013 [facility] DO 03/20/2013 Office visit Jared Richey MD 11/17/2012 Procedures Jared Richey MD 11/08/2012 Office visit Jared Richey MD 08/01/2012 Office visit Shilpa Olson APRN
--- OUTSIDE RECORDS SUMMARY | 2017-07-02 11:16 | XMS REPORT ---
Author Author Wicho Lomeli [facility] Address [address] [place], [place] [id number] Care Team Providers Care Incident Commander Name Role Phone Wicho Lomeli PCP Allergies [...] TAKE 1 TABLET BY MOUTH EVERY DAY triamcinolone acetonide 0.1 % topical cream [...] TABLET BY ORAL ROUTE EVERY OTHER DAY Discontinued Name Start Date Discontinued Date SIG [...] mg) by oral route once daily Acid Property Controller PRN 09/11/2013 Sprintec (28) 0.25-35 mg-mcg oral [...] oral route once daily for 30 days Problem List Description Status Onset Gastroesophageal Reflux Active Hypertension Active Abnormal Uterine Bleeding Active 11/13/2012 Breast Cancer Active 06/23/2013 Menopause ovarian failure Active 06/25/2014 Vitiligo Active 09/26/2014 Breast cancer Active 10/07/2014 Abnormal Breast Ultrasound Active 12/04/2014 Vital Signs Date Time BP-Sys(mm[Hg] BP-Ellen(mm[Hg]) HR(bpm) RR(rpm) Temp WT HT HC BMI BSA BMI Percentile O2 Sat(%) 06/21/2015 1:49:00 PM 134 mmHg 72 mmHg [...] Comments Alcohol Never Tobacco Never smoker 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#[id number] Reviewed 07/31/2011 12:00 AM MAMMOGRAM SCREENING Reviewed 10/02/2011 12:00 AM Bicillin CR 1.2 million units IM [facility]#[id number] Reviewed 04/01/2012 12:00 AM CYTOPATH C/V THIN LAYER Reviewed 04/04/2012 12:00 AM MAMMOGRAM SCREENING Reviewed 06/03/2012 12:00 AM Bicillin CR, Per 100,[address] [facility]# 32338-268-25 Reviewed 08/01/2012 12:00 AM THER/PROPH/DIAG INJ SC/IM Reviewed 08/01/2012 12:00 AM Decadron, Per [address] [facility]# [address]-72 Reviewed 08/01/2012 12:00 AM Depo-Medrol, Per [address] [facility]#5913-6948-37 Reviewed 11/08/2012 12:00 AM CHYLMD TRACH DNA [...] 07/18/2013 12:00 AM Decadron [address] [facility]# [address]-61 Reviewed 07/18/2013 12:00 AM Depo-Medrol [address] [facility]#[address]-82 Reviewed 08/04/2013 12:00 AM Bicillin CR, 1.[address] [facility]# 41851-696-85 Reviewed 12/11/2013 12:00 AM IMMUNOASSAY TUMOR CA [...] 06/01/2014 12:00 AM Decadron [address] [facility]# [address]-16 Reviewed 06/01/2014 12:00 AM Depo-Medrol [address] [facility]#[address]-80 Reviewed 06/19/2014 12:00 AM US EXAM PELVIC [...] uIU/mL 04/24/2015 6:30 PM CRP-HS 4.90 mg/L History Of Immunizations Not available. History of [...] of both hands Jun 21 2015 1:53PM Payers Insurance Name Company Name Plan Name Plan Number Policy Number Policy Group Number Start Date [facility] [place] [id number] October History of Encounters Visit Date Visit Type Provider 01/04/2015 Office visit Wicho Lomeli SOLID WASTE MANAGER 12/04/2014 Office visit Kulwant Hernandez DO 10/05/2014 Procedures Kulwant Sergiouman DO 09/26/2014 Office visit Nelly Cardona MD 07/10/2014 Office visit Ayla Herrera SOLID WASTE MANAGER 06/25/2014 Office visit Jared Richey MD 06/21/2014 Office visit Nelly Cardona MD 06/12/2014 Office visit Jared Ricehy MD 05/10/2014 Office visit Nelly Cardona MD 02/28/2014 Office visit Shilpa Olson SOLID WASTE MANAGER 12/11/2013 Office visit Jared Richey MD 12/07/2013 Office visit Wicho Lomeli SOLID WASTE MANAGER 10/24/2013 Office visit Pepe Young DO 09/11/2013 Office visit Jared Richey MD 07/25/2013 Office visit Kulwant Hernandez DO 07/18/2013 Office visit Pepe Young DO 07/11/2013 Surgery Kulwant Hernandez DO 06/26/2013 Office visit Jared Richey MD 06/23/2013 Surgery Kulwant David DO 06/19/2013 Surgery Kulwant Sergiouman DO 06/13/2013 Office visit Kulwant Hernandez DO 06/09/2013 [facility] DO 03/20/2013 Office visit Jared Richey MD 11/17/2012 Procedures Jared Richey MD 11/08/2012 Office visit Jared Richey MD 08/01/2012 Office visit Shilpa Olson SOLID WASTE MANAGER
--- OUTSIDE RECORDS SUMMARY | 2017-07-02 11:18 | XMS REPORT ---
Author Author Pepe Young [facility] Address [address] [place], [place] [id number] Care Team Providers Care Aircraft Engine Technician Name Role Phone Pepe Young PCP Unavailable Allergies and Adverse Reactions Name [...] by topical route 2 times per day acyclovir 400 mg oral tablet 06/30/2015 TAKE [...] mg) by oral route once daily Acid Dandy Tender PRN 09/11/2013 Sprintec (28) 0.25-35 mg-mcg [...] once daily in the morning before breakfast [facility] entered methylphenidate 10 mg oral capsule, [...] HC BMI BSA BMI Percentile O2 Sat(%) 07/26/2015 2:17:00 PM 130 mmHg 76 mmHg [...] Comments Alcohol Never Tobacco 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2 million units IM [facility]#[id number] Reviewed 04/01/2012 12:00 AM CYTOPATH C/V THIN LAYER Reviewed 04/04/2012 12:00 AM MAMMOGRAM SCREENING Reviewed 06/03/2012 12:00 AM Bicillin CR, Per 100,000 units [facility]# 27148-197-65 Reviewed 08/01/2012 12:00 AM THER/PROPH/DIAG INJ SC/IM Reviewed 08/01/2012 12:00 AM Decadron, Per 1 Mg [facility]# [address]-20 Reviewed 08/01/2012 12:00 AM Depo-Medrol, Per 80 Mg [facility]#8980-2680-61 Reviewed 11/08/2012 12:00 AM CHYLMD TRACH DNA [...] 07/18/2013 12:00 AM Decadron 8 mg [facility]# [address]-48 Reviewed 07/18/2013 12:00 AM Depo-Medrol 80 mg [facility]#[address]-88 Reviewed 08/04/2013 12:00 AM Bicillin CR, 1.2 million units [facility]# 26810-860-82 Reviewed 12/11/2013 12:00 AM IMMUNOASSAY TUMOR CA [...] 06/01/2014 12:00 AM Decadron 8 mg [facility]# [address]-49 Reviewed 06/01/2014 12:00 AM Depo-Medrol 80 mg [facility]#[address]-84 Reviewed 06/19/2014 12:00 AM US EXAM PELVIC [...] 2015 2:21PM Fatigue Jul 26 2015 2:21PM Payers Insurance Name Company Name Plan Name Plan Number Policy Number Policy Group Number Start Date [employer]bs [employer] [place] [id number] October History of Encounters Visit Date Visit Type Provider 07/15/2015 Office visit Pepe Hannah DO 01/04/2015 Office visit Wicho Lomeli CCTV TECHNICIAN 12/04/2014 Office visit Kulwant Hernandez DO 10/05/2014 [...] Surgery Kulwant Hernandez DO 06/19/2013 Surgery Kulwant Sergiouman DO 06/13/2013 Office visit Kulwant Hernandez DO 06/09/2013 [facility] DO 03/20/2013 Office visit Jared Richey MD 11/17/2012 Procedures Jared Richey MD 11/08/2012 Office visit Jared Richey MD 08/01/2012 Office visit Shilpa Olson APRN
--- OUTSIDE RECORDS SUMMARY | 2017-07-02 11:19 | XMS REPORT ---
Author Author [facility] Organization [facility] Address [address] [place], [place] [address] Care Team Providers Care Research Lab Assistant Name Role Phone PCP Unavailable Allergies and [...] mg) by oral route once daily benzonatate oral capsule 200 mg 12/06/2014 take 1 capsule (200 mg) by oral route 3 times per day as needed amoxicillin oral capsule 500 mg 01/04/2015 01/11/2015 take 1 capsule (500 mg) by oral route 3 times per day for 7 days prednisone oral tablet 20 mg 01/04/2015 01/10/2015 Take 3 tabs x 2 days; then Take 2 tabs x 2 days; then Take 1 tab x 2 days. Name Start Date Expiration Date SIG Comments [...] a day for 90 days Tessalon Perles Oral capsule 100 mg 08/01/2012 10/07/2012 take 1 capsule by oral route 3 times a day as needed Flonase Nasal [place], Suspension 50 mcg/actuation 08/01/2012 10/07/2012 inhale 1 [...] mg) by oral route once daily Acid Service Coordinator PRN 09/11/2013 Sprintec (28) oral tablet 0.25-35 [...] 2 times a day for 7 days Problem List Description Status Onset Gastroesophageal Reflux Active Hypertension Active Abnormal Uterine Bleeding Active 11/13/2012 Breast Cancer Active 06/23/2013 Menopause ovarian failure Active 06/25/2014 Vitiligo Active 09/26/2014 Breast cancer Active 10/07/2014 Abnormal Breast Ultrasound Active 12/04/2014 Vital Signs Date Time BP-Sys(mm[Hg] BP-Ellen(mm[Hg]) HR(bpm) RR(rpm) Temp WT HT HC BMI BSA BMI Percentile O2 Sat(%) 01/04/2015 2:31:00 PM 122 mmHg 78 mmHg [...] Description Comments Alcohol Tobacco Never smoker 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
--- OUTSIDE RECORDS SUMMARY | 2017-07-02 11:21 | XMS REPORT | CCD ---
Author Author DALLIN EL Organization Unknown Address [address] [facility] [address] [place], [place] [id number] Care Team Providers Care Educational Institution President Name Role Phone SUNG ZEPEDA MD Attphys Vital Signs Vital Sign Value Unit Date/Time Recent/Initial? Weight Measured 250 lbs 02/13/2016 14:11 Initial VS Height 70 in 02/13/2016 14:11 Initial VS BMI (Body Mass Index) 35.87 kg/m^2 02/13/2016 14:11 Initial VS BSA (Body Surface Area) 2.37 m^2 02/13/2016 14:11 Initial VS BP Systolic 110 mmHg 02/19/2016 09:56 Initial VS BP Diastolic 66 mmHg 02/19/2016 09:56 Initial VS Respiratory Rate 13 bpm 02/19/2016 09:57 Initial VS Heart Rate 58 bpm 02/19/2016 09:57 Initial VS O2 % BldC Oximetry 98 % 02/19/2016 09:58 Initial VS BP Systolic 127 mmHg 02/19/2016 12:18 Most Recent VS BP Diastolic 65 mmHg 02/19/2016 12:18 Most Recent VS Respiratory Rate 16 bpm 02/19/2016 12:18 Most Recent VS Heart Rate 51 bpm 02/19/2016 12:18 Most Recent VS O2 % BldC Oximetry 100 % 02/19/2016 12:18 Most Recent VS Allergies Allergy Code Allergy Type Reaction Status No Known Allergies 0 No known allergies Active Procedures Procedure Code Procedure Type Date Hysteroscopy bx endometrium&/polypc w/wo d&c 74676 CPT 01/2016 PATHOLOGY ORDER [id number] SNOM[address] 02/19/[id number] 02/19/2016 History of Immunizations Immunization Code Date Hep B, adult 43 12/03/1995 Hep B, adult 43 12/31/1995 Hep B, adult 43 07/28/1996 Problems Problem Code Start Date Resolved Date Status CHEST PAIN 91570 Active Results TEST - Collect Date/Time: 02/19/2016 09:50 Test Name Code Test Result Test Units Test Ref Range TEST 2118-8 NEGATIVE N/A Active Medications Medications Administered During Visit Unknown or Not Available. Encounters Encounter Diagnosis Diagnosis Code Start Date Postmenopausal bleeding N950 02/19/2016 Social History Smoking Status Code Start Date End Date Never smoker [id number] Patient Decision Aids Patient Decision Aid D&C / HYSTEROSCOPY; AFTER THE PROCEDURE Discharge Instructions You were admitted to [facility] on 02/19/2016 09:00 with a principal diagnosis of Postmenopausal bleeding You had the following procedures done: Hysteroscopy bx endometrium&/polypc w/wo d&c You had the following tests done: TEST You were discharged from [facility] on 02/19/2016 13:10 Should you have any questions prior to discharge, please contact a member of your healthcare team. If you have left the hospital and have any questions, please contact your primary care physician. Chief Complaint and Reason For Visit Chief Complaint Date of Onset D AND C HYSTERSCOPY Function Status Unknown or Not Available. Plan of Care Unknown or Not Available. Referral/Transition of Care Unknown or Not Available.
--- OUTSIDE RECORDS SUMMARY | 2017-07-02 11:21 | XMS REPORT ---
Author Author Pepe Young [facility] Address [address] [place] [id number] Care Team Providers Care Nursing Home Assistant Administrator Name Role Phone Pepe Young PCP Unavailable Allergies and Adverse Reactions Name Reaction Notes clobetasol rash Plan of Treatment Planned Activity Comments Planned Date Planned Time Plan/Goal Screening Mammography, bilateral 10/02/2011 12:00 AM *Injection,Subcutaneous/Intramuscul 06/03/2012 12:00 AM Rapid Strep 07/10/2014 12:00 AM Medications Active Name Start [...] ROUTE 2 TIMES PER DAY BEFORE MEALS losartan 50 mg oral tablet 05/07/2016 TAKE 1 TABLET BY MOUTH EVERY DAY amoxicillin 500 mg oral tablet 10/16/2016 10/23/2016 take 1 tablet (500 mg) by oral [...] for 30 daysDx: Short term weight loss amoxicillin 500 mg oral tablet 07/03/2016 07/10/2016 take 1 tablet (500 mg) by oral [...] mg) by oral route once daily Acid [place] Reporter PRN 09/11/2013 Sprintec (28) 0.25-35 mg-mcg oral [...] route every 12 hours for 7 days phentermine 37.5 mg oral tablet 07/03/2016 09/29/2016 take 1 tablet (37.5 mg ) by oral route once daily before breakfast for 30 days Problem List Description Status Onset Gastroesophageal Reflux Active Hypertension Active Abnormal uterine bleeding Active 11/13/2012 Breast Cancer Active 06/23/2013 Menopause ovarian failure Active 06/25/2014 Vitiligo Active 09/26/2014 Breast cancer Active 10/07/2014 Abnormal Breast Ultrasound Active 12/04/2014 Vital Signs Date Time BP-Sys(mm[Hg] BP-Ellen(mm[Hg]) HR(bpm) RR(rpm) Temp WT HT HC BMI BSA BMI Percentile O2 Sat(%) 10/16/2016 2:37:00 PM 128 mmHg 68 mmHg 82 bpm 18 rpm 98.7 F 254 lbs 69 in 37.51 kg/m2 2.37 m2 100 % 09/29/2016 10:21:00 AM 136 mmHg 60 mmHg 65 bpm 20 rpm 97.5 F 255 lbs 69 in 37.6565 kg/m 2.373 m 98 % 07/03/2016 2:41:00 PM 136 mmHg 70 mmHg 56 bpm 20 rpm 98.1 F 249 lbs 69 in 36.77 kg/m2 2.34 m2 98 % 05/22/2016 1:48:00 PM 132 mmHg 70 mmHg 74 bpm 18 rpm 98.2 F 251 lbs 69 in 37.0658 kg/m 2.3543 m 99 % 04/17/2016 1:39:00 PM 130 mmHg 76 mmHg [...] Comments Alcohol Never Tobacco Never smoker 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 History of Procedures Date Ordered Description Order Status 05/15/2011 12:00 AM COMPLETE CBC W/AUTO DIFF WBC Reviewed 05/15/2011 12:00 AM VITAMIN B-12 Reviewed 05/15/2011 12:00 AM ASSAY OF FERRITIN Reviewed 05/15/2011 12:00 AM ASSAY THYROID STIM HORMONE Reviewed 05/15/2011 12:00 AM ASSAY OF TOTAL THYROXINE Reviewed 05/15/2011 12:00 AM Bicillin CR 1.2 million units IM [facility]#[id number] Reviewed 07/31/2015 12:00 AM Bicillin CR, 1.2 million units [facility]# 52493-441-68 Reviewed 08/06/2015 12:00 AM US EXAM PELVIC COMPLETE Reviewed 08/06/2015 12:00 AM SPECIMEN HANDLING OFFICE-LAB Reviewed 08/06/2015 12:00 AM CYTOPATH C/V THIN LAYER Reviewed 08/27/2015 12:00 AM BIOPSY OF UTERUS LINING Reviewed 09/06/2015 12:00 AM Orthopedic Consultation Reviewed 07/31/2011 [...] AM Bicillin CR 1.2 million units IM [facility]#[id number] Reviewed 04/17/2016 12:00 AM Bicillin CR, 1.2 million units [facility]# 74953-380-94 Reviewed 09/29/2016 12:00 AM Decadron 4mg Injection Reviewed 09/29/2016 12:00 AM Depo-Medrol 40mg Injection Reviewed 04/01/2012 12:00 AM CYTOPATH C/V THIN LAYER Reviewed 04/04/2012 12:00 AM MAMMOGRAM SCREENING Reviewed 06/03/2012 12:00 AM Bicillin CR, Per 100,000 units [facility]# 42750-166-72 Reviewed 08/01/2012 12:00 AM THER/PROPH/DIAG INJ SC/IM Reviewed 08/01/2012 12:00 AM Decadron, Per 1 Mg [facility]# [address]-35 Reviewed 08/01/2012 12:00 AM Depo-Medrol, Per 80 Mg [facility]#8878-5153-73 Reviewed 11/08/2012 12:00 AM CHYLMD TRACH DNA AMP PROBE Reviewed 11/08/2012 12:00 AM N.GONORRHOEAE DNA AMP PROB Reviewed 11/08/2012 12:00 AM ASSAY OF GONADOTROPIN (FSH) Reviewed 11/08/2012 12:00 AM ASSAY OF PROLACTIN Reviewed 11/08/2012 12:00 AM ASSAY THYROID STIM HORMONE Reviewed 11/08/2012 12:00 AM URINALYSIS AUTO W/SCOPE Reviewed 11/17/2012 12:00 AM BIOPSY OF UTERUS LINING Reviewed 05/19/2013 12:00 AM CYTOPATH C/V THIN LAYER Reviewed 05/19/2013 12:00 AM MAMMOGRAM SCREENING Reviewed 07/18/2013 12:00 AM Decadron 8 mg [facility]# [address]-54 Reviewed 07/18/2013 12:00 AM Depo-Medrol 80 mg [facility]#[address]-86 Reviewed 08/04/2013 12:00 AM Bicillin CR, 1.2 million units [facility]# 54135-449-18 Reviewed 12/11/2013 12:00 AM IMMUNOASSAY TUMOR CA 125 Reviewed 12/11/2013 12:00 AM US EXAM PELVIC COMPLETE Reviewed 12/19/2013 12:00 AM US EXAM PELVIC COMPLETE Reviewed 02/28/2014 12:00 AM URINALYSIS AUTO W/SCOPE Reviewed 02/28/2014 12:00 AM N.GONORRHOEAE DNA AMP PROB Reviewed 02/28/2014 12:00 AM CHLAMYDIA CULTURE Reviewed 02/28/2014 12:00 AM SMEAR WET M[place] SALINE/INK Reviewed 02/28/2014 12:00 AM TISSUE EXAM FOR FUNGI Reviewed 06/01/2014 12:00 AM Decadron 8 mg [facility]# [address]-61 Reviewed 06/01/2014 12:00 AM Depo-Medrol 80 mg [facility]#[address]-66 Reviewed 06/19/2014 12:00 AM US EXAM PELVIC COMPLETE Reviewed 06/12/2014 12:00 AM ASSAY THYROID STIM HORMONE Reviewed 06/12/2014 12:00 AM ASSAY OF GONADOTROPIN (FSH) Reviewed 06/12/2014 12:00 AM CYTOPATH C/V THIN LAYER Reviewed 06/12/2014 12:00 AM SPECIMEN HANDLING OFFICE-LAB Reviewed [...] %MCV 85.0 fLMCH 27.0 pgMCHC 31.90 g/dLRDW SD 42 RDW CV 13.70 %MPV 10.10 fLPLT 276 NRBC# 0.00 NRBC% 0.0 %NEUT 50.80 %%LYMP 38.40 %%MONO 9.30 %%EOS 1.40 %%BASO 0.10 %#NEUT 4.26 #LYMP 3.22 #MONO 0.78 #EOS 0.12 #BASO 0.01 MANUAL DIFF NOT IND FERRITIN 63.0 ng/mLT4 6.40 ug/dLTSH 1.320 uIU/mLVITAMIN B12 404.0 pg/mL 11/08/2012 12:30 PM TSH 1.050 uIU/mLFSH 5.50 mIU/mLCOLOR YELLOW APPEARANCE CLEAR SPEC GRAV <=1.005 pH 5.5 PROTEIN NEGATIVE GLUCOSE NEGATIVE KETONE NEGATIVE BILIRUBIN NEGATIVE BLOOD NEGATIVE NITRITE NEGATIVE LEUK SCREEN NEGATIVE WBC/HPF NEGATIVE RBC/HPF NEGATIVE CASTS/LPF NEGATIVE CRYSTALS NEGATIVE MUCOUS THRDS NEGATIVE BACTERIA FEW EPITH CELLS FEW SQUAMOUS TRICHOMONAS NEGATIVE YEAST NEGATIVE CULT SET UP? NO 06/19/2013 9:00 AM TEST UR NEGATIVE 07/11/2013 7:54 AM TEST UR NEGATIVE 12/11/2013 5:06 PM Cancer Antigen (CA) 125 5.0 U/mL 01/10/2014 7:35 AM GLUCOSE 106.0 mg/dLSODIUM 139.0 mmol/LPOTASSIUM 3.60 mmol/ LCHLORIDE 105.0 mmol/LCO2 26.0 mmol/LBUN 21.0 mg/dLCREATININE 1.30 mg/dLSGOT/ AST 12.0 IU/LSGPT/ALT 9.0 IU/LALK PHOS 55.0 IU/LTOTAL PROTEIN 6.80 g/dLALBUMIN 3.70 g/dLTOTAL BILI 0.50 mg/dLCALCIUM 9.0 mg/dLAGE 43 GFR NonAA 44 GFR AA 53 eGFR 44 eGFR AA* 53 WBC 4.7 RBC 3.50 HGB 10.20 g/dLHCT 31.40 %MCV 90.0 fLMCH 29.10 pgMCHC 32.50 g/dLRDW SD 46 RDW CV 14.20 %MPV 9.90 fLPLT 171 NRBC# 0.00 NRBC% 0.0 %NEUT 52.0 %%LYMP 34.0 %%MONO 11.60 %%EOS 2.20 %%BASO 0.20 %#NEUT 2.42 #LYMP 1.58 #MONO 0.54 #EOS 0.10 #BASO 0.01 MANUAL DIFF NOT IND 02/28/2014 10:45 AM WET PREP NO TRICH SEEN CLUE CELLS NONE SEEN COLOR YELLOW APPEARANCE CLEAR SPEC GRAV <=1.005 pH 6.5 PROTEIN NEGATIVE GLUCOSE NEGATIVE KETONE NEGATIVE BILIRUBIN NEGATIVE BLOOD NEGATIVE NITRITE NEGATIVE LEUK SCREEN TRACE WBC/HPF RARE RBC/HPF NEGATIVE CASTS/LPF NEGATIVE CRYSTALS NEGATIVE MUCOUS THRDS NEGATIVE BACTERIA NEGATIVE EPITH CELLS FEW SQUAMOUS TRICHOMONAS NEGATIVE YEAST NEGATIVE CULT SET UP? NO Neisseria Gonorrhoeae NEGATIVE Chlamydia Trachomatis NEGATIVE 06/12/2014 4:30 PM FSH 27.30 mIU/mLTSH 1.350 uIU/mL 04/24/2015 6:30 PM CRP-HS 4.90 mg/L 06/25/2015 8:50 AM WBC 6.6 RBC 4.13 HGB 11.30 g/dLHCT 34.70 %MCV 84.0 fLMCH 27.40 pgMCHC 32.60 g/dLRDW SD 45 RDW CV 14.50 %MPV 9.40 fLPLT 211 NRBC# 0.00 NRBC% 0.0 %NEUT 58.40 %%LYMP 32.80 %%MONO 6.80 %%EOS 1.80 %%BASO 0.20 %#NEUT 3.88 #LYMP 2.18 #MONO 0.45 #EOS 0.12 #BASO 0.01 MANUAL DIFF NOT IND GLUCOSE 109.0 mg/dLSODIUM 140.0 mmol/LPOTASSIUM 3.50 mmol/LCHLORIDE 103.0 mmol/LCO2 27.0 mmol/LBUN 16.0 mg/dLCREATININE 1.0 mg/dLSGOT/AST 13.0 IU/LSGPT/ALT 15.0 IU/ LALK PHOS 84.0 IU/LTOTAL PROTEIN 6.80 g/dLALBUMIN 4.10 g/dLTOTAL BILI 0.30 mg/ dLCALCIUM 9.80 mg/dLAGE 45 GFR NonAA 59 GFR AA 72 eGFR 59 eGFR AA* >60 CEA 0.70 ng/mLCA 27.29 22.70 U/mL 12/24/2015 8:12 AM GLUCOSE 95.0 mg/dLSODIUM 140.0 mmol/LPOTASSIUM 3.10 mmol/ LCHLORIDE 103.0 mmol/LCO2 26.0 mmol/LBUN 13.0 mg/dLCREATININE 0.90 mg/dLSGOT/ AST 13.0 IU/LSGPT/ALT 13.0 IU/LALK PHOS 81.0 IU/LTOTAL PROTEIN 6.80 g/dLALBUMIN 4.10 g/dLTOTAL BILI 0.30 mg/dLCALCIUM 9.40 mg/dLAGE 45 GFR NonAA 67 GFR AA 81 eGFR >60 mL/min/1.73meGFR AA* >60 WBC 6.1 RBC 4.36 HGB 11.70 g/dLHCT 36.60 % MCV 84.0 fLMCH 26.80 pgMCHC 32.0 g/dLRDW SD 45 RDW CV 14.60 %MPV 9.20 fLPLT 224 NRBC# 0.00 NRBC% 0.0 %NEUT 56.30 %%LYMP 31.30 %%MONO 9.80 %%EOS 2.0 %%BASO 0.30 %#NEUT 3.46 #LYMP 1.92 #MONO 0.60 #EOS 0.12 #BASO 0.02 MANUAL DIFF NOT IND CEA 0.50 ng/mLCA 27.29 25.20 U/mL 02/14/2016 10:30 AM WBC 6.5 RBC 4.17 HGB 11.20 g/dLHCT 35.70 %MCV 86.0 fLMCH 26.90 pgMCHC 31.40 g/dLRDW SD 44 RDW CV 14.20 %MPV 9.10 fLPLT 256 NRBC# 0.00 NRBC% 0.0 %NEUT 52.50 %%LYMP 34.50 %%MONO 10.20 %%EOS 2.0 %%BASO 0.30 %#NEUT 3.40 #LYMP 2.23 #MONO 0.66 #EOS 0.13 #BASO 0.02 MANUAL DIFF NOT IND TEST UR NEGATIVE 02/19/2016 9:50 AM TEST NEGATIVE 03/14/2016 5:05 AM WBC 5.8 RBC 4.40 HGB 11.70 g/dLHCT 37.60 %MCV 86.0 fLMCH 26.60 pgMCHC 31.10 g/dLRDW SD 44 RDW CV 14.10 %MPV 9.70 fLPLT 220 NRBC# 0.00 NRBC% 0.0 %NEUT 43.70 %%LYMP 41.80 %%MONO 10.60 %%EOS 3.40 %%BASO 0.30 %#NEUT 2.55 #LYMP 2.44 #MONO 0.62 #EOS 0.20 #BASO 0.02 MANUAL DIFF NOT IND GLUCOSE 100.0 mg/dLSODIUM 142.0 mmol/LPOTASSIUM 3.20 mmol/LCHLORIDE 104.0 mmol/LCO2 27.0 mmol/LBUN 14.0 mg/dLCREATININE 1.0 mg/dLCALCIUM 9.40 mg/dLAGE 46 GFR NonAA 59 GFR AA 72 eGFR 59 eGFR AA* >60 TSH 0.850 uIU/mLInsulin 22.5 06/23/2016 8:15 AM GLUCOSE 88.0 mg/dLSODIUM 140.0 mmol/LPOTASSIUM 4.0 mmol/ LCHLORIDE 101.0 mmol/LCO2 31.0 mmol/LBUN 12.0 mg/dLCREATININE 1.0 mg/dLSGOT/AST 14.0 IU/LSGPT/ALT 21.0 IU/LALK PHOS 86.0 IU/LTOTAL PROTEIN 7.10 g/dLALBUMIN 4.0 g/dLTOTAL BILI 0.30 mg/dLCALCIUM 9.80 mg/dLAGE 46 GFR NonAA 59 GFR AA 72 eGFR 59 eGFR AA* >60 WBC 6.5 RBC 4.57 HGB 11.90 g/dLHCT 38.20 %MCV 84.0 fLH 26.0 pgHC 31.20 g/dLRDW SD 44 RDW CV 14.30 %MPV 9.70 fLPLT 243 NRBC# 0.00 NRBC% 0.0 %NEUT 56.50 %%LYMP 30.20 %%MONO 10.0 %%EOS 2.50 %%BASO 0.30 %#NEUT 3.67 # LYMP 1.96 #MONO 0.65 #EOS 0.16 #BASO 0.02 MANUAL DIFF NOT IND CEA 0.50 ng/mLCA 27.29 18.30 U/mL History Of Immunizations Not available. History [...] non-recurrent maxillary sinusitis Apr 17 2016 1:43PM Dietary Counseling May 22 2016 1:51PM Exercise Counseling May 22 2016 1:51PM Obesity (BMI 35.0-39.9 without comorbidity) May 22 2016 1:51PM Dietary Counseling Jul 03 2016 2:49PM Exercise Counseling Jul 03 2016 2:49PM Obesity (BMI 35.0-39.9 without comorbidity) Jul 03 2016 2:49PM Acute pharyngitis, unspecified etiology Jul 03 2016 2:49PM Acute non-recurrent maxillary sinusitis Sep 29 2016 10:23AM Acute suppurative otitis media of right ear without spontaneous rupture of tympanic membrane, recurrence not specified Oct 16 2016 2:40PM Payers Insurance Name Company Name Plan Name Plan Number Policy Number Policy Group Number Start Date BCBS Bcbs [facility] [id number] N/A BCBS Bcbs [facility] [id number] October History of Encounters Visit Date Visit Type Provider 09/29/2016 Office visit Pepe Young DO 03/03/[address] Allegra Pineda MD 02/19/[address] Allegra Pineda MD 02/10/[address] Allegra Pineda MD 08/27/[address] Allegra Pineda MD 08/21/[address] Allegra Pineda MD 08/06/2015 Office visit 08/06/[address] Allegra Pineda MD 07/31/2015 Office visit Pepe Young DO 07/15/2015 Office visit Pepe Young DO 01/04/2015 Office visit Wicho Lomeli APRN 12/04/2014 Office visit Kulwant Bouman DO 10/05/2014 Procedures Kulwant Bouman DO 09/26/2014 Office visit Nelly Cardona MD 07/10/2014 Office visit Ayla Herrera MIS MANAGER 06/25/2014 Office visit Jared Richey MD [...] 06/13/2013 Office visit Kulwant Hilluman DO 06/09/2013 [facility] DO 03/20/2013 Office visit Jared Richey MD 11/17/2012 Procedures Jared Richey MD 11/08/2012 Office visit Jared Richey MD 08/01/2012 Office visit Shilpa Olson APRN
[2017-07-02 11:22] VITALS: BP 115/69
--- OUTSIDE RECORDS SUMMARY | 2017-07-02 11:22 | XMS REPORT ---
Author Author [facility] Organization [facility] Address [address] [place], [place] [id number] Care Team Providers Care Shower Attendant Name Role Phone PCP Unavailable Allergies and [...] 1 TABLET BY MOUTH EVERY DAY hydrochlorothiazide oral tablet 25 mg 12/22/2013 12/17/2014 take 1 tablet by oral route daily for 90 days ibuprofen oral tablet 800 mg 01/01/2014 TAKE [...] route 3 times per day as needed clarithromycin oral tablet 250 mg 12/06/2014 12/13/2014 [...] tablet (150 mg) by oral route once Bactrim DS oral tablet 800-160 mg 01/04/2014 [...] (1 mg) by oral route once daily Discontinued Name Start Date Discontinued Date SIG [...] times a day as needed Flonase Nasal [place], Suspension 50 mcg/actuation 08/01/2012 10/07/2012 inhale 1 [...] mg) by oral route once daily Acid Vibrator Equipment Tester PRN 09/11/2013 Sprintec (28) oral tablet 0.25-35 [...] HC BMI BSA BMI Percentile O2 Sat(%) 12/04/2014 10:53:00 AM 129 mmHg 71 mmHg [...] Description Comments Alcohol Tobacco Never 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 Procedures Date Ordered [...] Abnormal Breast Ultrasound Dec 04 2014 11:05AM Payers Insurance Name Company Name Plan Name Plan Number Policy Number Policy Group Number Start Date B[employer]bs [facility] [facility] [place] [id number] October History of Encounters Visit Date Visit Type Provider 12/04/2014 Office visit Kulwant Hernandez DO 10/05/2014 [...] Kulwant Hernandez DO 07/18/2013 Office visit Pepe Yonug DO 07/11/2013 Surgery Kulwant David DO 06/26/2013 Office visit Jared Richey MD 06/23/2013 Surgery Kulwant Hernandez DO 06/19/2013 Surgery Kulwant Hernandez DO 06/13/2013 Office visit Kulwant Hernandez DO 06/09/2013 [facility] DO 03/20/2013 Office visit Jared Richey MD 11/17/2012 Procedures Jared Richey MD 11/08/2012 Office visit Jared Richey MD 08/01/2012 Office visit Shilpa Olson APRN
--- OUTSIDE RECORDS SUMMARY | 2017-07-02 11:23 | XMS REPORT ---
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 History of Procedures Date Ordered Description Order Status 05/15/2011 12:00 AM COMPLETE CBC W/AUTO DIFF WBC Reviewed 05/15/2011 12:00 AM VITAMIN B-12 Reviewed 05/15/2011 12:00 AM ASSAY OF FERRITIN Reviewed 05/15/2011 12:00 AM ASSAY THYROID STIM HORMONE Reviewed 05/15/2011 12:00 AM ASSAY OF TOTAL THYROXINE Reviewed 05/15/2011 12:00 AM Bicillin CR 1.2 million units IM [facility]#[id number] Reviewed 07/31/2011 12:00 AM MAMMOGRAM SCREENING Reviewed 10/02/2011 12:00 AM Bicillin CR 1.2 million units IM [facility]#[id number] Reviewed 04/01/2012 12:00 AM CYTOPATH C/V THIN LAYER Reviewed 04/04/2012 12:00 AM MAMMOGRAM SCREENING Reviewed 06/03/2012 12:00 AM Bicillin CR, Per 100,000 units [facility]# 89394-487-38 Reviewed 08/01/2012 12:00 AM THER/PROPH/DIAG INJ SC/IM Reviewed 08/01/2012 12:00 AM Decadron, Per 1 Mg [facility]# [address]-65 Reviewed 08/01/2012 12:00 AM Depo-Medrol, Per 80 Mg [facility]#6990-0986-02 Reviewed 11/08/2012 12:00 AM CHYLMD TRACH DNA [...] Reviewed 07/18/2013 12:00 AM Decadron 8 mg [facility]# [address]-43 Reviewed 07/18/2013 12:00 AM Depo-Medrol 80 mg [facility]#[address]-48 Reviewed 08/04/2013 12:00 AM Bicillin CR, 1.2 million units [facility]# 17838-091-47 Reviewed 12/11/2013 12:00 AM IMMUNOASSAY TUMOR CA [...] Returned 06/01/2014 12:00 AM Decadron 8 mg [facility]# [address]-19 Reviewed 06/01/2014 12:00 AM Depo-Medrol 80 mg [facility]#[address]-65 Reviewed 06/19/2014 12:00 AM US EXAM PELVIC [...] Reviewed 04/23/2015 12:00 AM C-REACTIVE PROTEIN HS Returned Results Summary Data and Description Results 04/02/2011 [...] Policy Number Policy Group Number Start Date [facility] [id number] October History of Encounters Visit Date Visit Type Provider 01/04/2015 Office visit Wicho Lomeli APRN 12/04/2014 Office visit Kulwant Hernandez DO 10/05/2014 Procedures Kulwant Hernandez DO 09/26/2014 Office visit Nelly Cardona MD 07/10/2014 Office visit Ayla Herrera SHEARING MACHINE OPERATOR 06/25/2014 Office visit Jared Richey MD 06/21/2014 Office visit Nelly Cardona MD 06/12/2014 Office visit Jared Richey MD 05/10/2014 Office visit Nelly Cardona MD 02/28/2014 Office visit Shilpa Olson SHEARING MACHINE OPERATOR 12/11/2013 Office visit Jared Richey MD 12/07/2013 Office visit Wicho Lomeli SHEARING MACHINE OPERATOR 10/24/2013 Office visit Pepe Young DO 09/11/2013 Office visit Jared Richey MD 07/25/2013 Office visit Kulwant Hernandez DO 07/18/2013 Office visit Pepe Young DO 07/11/2013 Surgery Kulwant David DO 06/26/2013 Office visit Jared Richey MD 06/23/2013 Surgery Kulwant David DO 06/19/2013 Surgery Kulwant Hilluman DO 06/13/2013 Office visit Kulwant Hernandez DO 06/09/2013 [facility] DO 03/20/2013 Office visit Jared Richey MD 11/17/2012 Procedures Jared Richey MD 11/08/2012 Office visit Jared Richey MD 08/01/2012 Office visit Shilpa Olson APRN
--- OUTSIDE RECORDS SUMMARY | 2017-07-02 11:24 | XMS REPORT ---
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 History of Procedures Date Ordered Description Order Status 05/15/2011 12:00 AM COMPLETE CBC W/AUTO DIFF WBC Reviewed 05/15/2011 12:00 AM VITAMIN B-12 Reviewed 05/15/2011 12:00 AM ASSAY OF FERRITIN Reviewed 05/15/2011 12:00 AM ASSAY THYROID STIM HORMONE Reviewed 05/15/2011 12:00 AM ASSAY OF TOTAL THYROXINE Reviewed 05/15/2011 12:00 AM Bicillin CR 1.2 million units IM [facility]#[id number] Reviewed 07/31/2015 12:00 AM Bicillin CR, 1.2 million units [facility]# 31677-824-04 Reviewed 08/06/2015 12:00 AM US EXAM PELVIC [...] Bicillin CR 1.2 million units IM [facility]#85446799912 Reviewed 04/01/2012 12:00 AM CYTOPATH C/V THIN LAYER Reviewed 04/04/2012 12:00 AM MAMMOGRAM SCREENING Reviewed 06/03/2012 12:00 AM Bicillin CR, Per 100,000 units [facility]# 68929-312-89 Reviewed 08/01/2012 12:00 AM THER/PROPH/DIAG INJ SC/IM Reviewed 08/01/2012 12:00 AM Decadron, Per 1 Mg [facility]# [address]-51 Reviewed 08/01/2012 12:00 AM Depo-Medrol, Per 80 Mg [facility]#3941-5097-91 Reviewed 11/08/2012 12:00 AM CHYLMD TRACH DNA [...] 07/18/2013 12:00 AM Decadron 8 mg [facility]# [address]-29 Reviewed 07/18/2013 12:00 AM Depo-Medrol 80 mg [facility]#[address]-58 Reviewed 08/04/2013 12:00 AM Bicillin CR, 1.2 million units [facility]# 11187-119-73 Reviewed 12/11/2013 12:00 AM IMMUNOASSAY TUMOR CA [...] 06/01/2014 12:00 AM Decadron 8 mg [facility]# [address]-10 Reviewed 06/01/2014 12:00 AM Depo-Medrol 80 mg [facility]#[address]-86 Reviewed 06/19/2014 12:00 AM US EXAM PELVIC [...] Policy Group Number Start Date [facility] [id number] October History of Encounters Visit Date Visit [...] Young DO 01/04/2015 Office visit Wicho Lomeli CIVIL ENGINEERING INTERN 12/04/2014 Office visit Kulwant Hernandez DO 10/05/2014 Procedures Kulwant Hernandez DO 09/26/2014 Office visit Nelly Cardona MD 07/10/2014 Office visit Ayla Herrera CIVIL ENGINEERING INTERN 06/25/2014 Office visit Jared Richey MD 06/21/2014 Office visit Nelly Cardona MD 06/12/2014 Office visit 06/12/2014 Office visit Jared Richey MD 05/10/2014 Office visit Nelly Cardona MD 02/28/2014 Office visit Shilpaelfego Olson APRN 12/11/2013 Office visit Jared Richey MD 12/07/2013 Office visit Wicho Lomeli CIVIL ENGINEERING INTERN 10/24/2013 Office visit Pepe Young DO 09/11/2013 Office visit Jared Richey MD 07/25/2013 Office visit Kulwant Hernandez DO 07/18/2013 Office visit Pepe Young DO 07/11/2013 Surgery Kulwant Hernandez DO 06/26/2013 Office visit Jared Richey MD 06/23/2013 Surgery Kulwant David DO 06/19/2013 Surgery Kulwant Hernandez DO 06/13/2013 Office visit Kulwant Hernandez DO 06/09/2013 [facility] DO 03/20/2013 Office visit Jared Richey MD 11/17/2012 Procedures Jared Richey MD 11/08/2012 Office visit Jared Richey MD 08/01/2012 Office visit Shilpa Olson APRN
--- OUTSIDE RECORDS SUMMARY | 2017-07-02 11:26 | XMS REPORT ---
Author Author Allegra Pineda [facility] Address [address] [place] [phone] Care Team Providers Care Guide Name Role Phone Allegra Pineda PCP Unavailable [...] route 2 times per day with food Name Start Date Expiration Date SIG Comments [...] mg) by oral route once daily Acid Library Historian PRN 09/11/2013 Sprintec (28) 0.25-35 mg-mcg oral [...] HC BMI BSA BMI Percentile O2 Sat(%) 09/06/2015 2:12:00 PM 128 mmHg 70 mmHg [...] lbs 69 in 37.0658 kg/m 2.35 m2 99 % 06/21/2015 1:49:00 PM 134 mmHg 72 mmHg 72 bpm 20 rpm 98.1 F 69 in 98 % 04/19/2015 1:32:00 PM 124 mmHg 72 mmHg 68 bpm 20 rpm 98.2 F 257 lbs 69 in 37.9519 kg/m 2.38 m2 98 % 02/08/2015 1:38:00 PM 132 mmHg 78 mmHg 63 bpm 20 rpm 98 F 259 lbs 69 in 38.25 kg/m2 2.3915 m 98 % 01/11/2015 2:08:00 PM 134 mmHg 78 mmHg 80 bpm 16 rpm 98.2 F 258 lbs 69 in 38.0995 kg/m 2.39 m2 100 % 01/04/2015 2:31:00 PM 122 mmHg 78 mmHg 62 bpm 16 rpm 96.4 F 250.25 lbs 69 in 36.96 kg/m2 2.3508 m 99 % 12/04/2014 10:53:00 AM 129 mmHg 71 mmHg 67 bpm 16 rpm 96.7 F 250 lbs 69 in 36.9182 kg/m 2.35 m2 11/09/2014 2:11:00 PM 138 mmHg [...] Comments Alcohol Never 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 History of Procedures Date Ordered Description Order Status 05/15/2011 12:00 AM COMPLETE CBC W/AUTO DIFF WBC Reviewed 05/15/2011 12:00 AM VITAMIN B-12 Reviewed 05/15/2011 12:00 AM ASSAY OF FERRITIN Reviewed 05/15/2011 12:00 AM ASSAY THYROID STIM HORMONE Reviewed 05/15/2011 12:00 AM ASSAY OF TOTAL THYROXINE Reviewed 05/15/2011 12:00 AM Bicillin CR 1.2 million units IM [facility]#[id number] Reviewed 07/31/2015 12:00 AM Bicillin CR, 1.2 million units [facility]# 73308-619-75 Reviewed 08/06/2015 12:00 AM US EXAM PELVIC COMPLETE Returned 08/06/2015 12:00 AM SPECIMEN HANDLING OFFICE-LAB Reviewed 08/06/2015 12:00 AM CYTOPATH C/V THIN LAYER Returned 08/27/2015 12:00 AM BIOPSY OF UTERUS LINING Returned 07/31/2011 12:00 AM MAMMOGRAM SCREENING Reviewed 10/02/2011 12:00 AM Bicillin CR 1.2 million units IM [facility]#76390794854 Reviewed 04/01/2012 12:00 AM CYTOPATH C/V THIN LAYER Reviewed 04/04/2012 12:00 AM MAMMOGRAM SCREENING Reviewed 06/03/2012 12:00 AM Bicillin CR, Per 100,000 units [facility]# 58623-017-95 Reviewed 08/01/2012 12:00 AM THER/PROPH/DIAG INJ SC/IM Reviewed 08/01/2012 12:00 AM Decadron, Per 1 Mg [facility]# [address]-58 Reviewed 08/01/2012 12:00 AM Depo-Medrol, Per 80 Mg [facility]#1807-9545-81 Reviewed 11/08/2012 12:00 AM CHYLMD TRACH DNA [...] Reviewed 07/18/2013 12:00 AM Decadron 8 mg [facility]# [address]-52 Reviewed 07/18/2013 12:00 AM Depo-Medrol 80 mg [facility]#[address]-72 Reviewed 08/04/2013 12:00 AM Bicillin CR, 1.2 million units [facility]# 23083-309-83 Reviewed 12/11/2013 12:00 AM IMMUNOASSAY TUMOR CA [...] Returned 06/01/2014 12:00 AM Decadron 8 mg [facility]# [address]-41 Reviewed 06/01/2014 12:00 AM Depo-Medrol 80 mg [facility]#[address]-99 Reviewed 06/19/2014 12:00 AM US EXAM PELVIC [...] 11.30 g/dLHCT 34.70 %MCV 84.0 fLMCH 27.40 pgHC 32.60 g/dLRDW CV 14.50 %MPV 9.40 fLPLT [...] Left wrist tendonitis Sep 06 2015 2:16PM Payers Insurance Name Company Name Plan Name Plan Number Policy Number Policy Group Number Start Date [employer]BS [facility] [facility] [place] [id number] October History of Encounters Visit Date Visit Type Provider 08/27/[address] Allegra Pineda MD 08/21/[address] Allegra Pineda MD 08/06/2015 Office visit 08/06/[address] Allegra Pineda MD 07/31/2015 Office visit Pepe Hannah DO 07/15/2015 Office visit Pepe Hannah DO 01/04/2015 Office visit Wicho Lomeli DINING SERVICES DIRECTOR 12/04/2014 Office visit Kulwant Hernandez DO 10/05/2014 Procedures Kulwant Bouman DO 09/26/2014 Office visit Nelly Cardoan MD 07/10/2014 Office visit Ayla Herrera DINING SERVICES DIRECTOR 06/25/2014 Office visit Jared Richey MD 06/21/2014 [...] 06/13/2013 Office visit Kulwant Bouman DO 06/09/2013 [facility] DO 03/20/2013 Office visit Jared Richey MD 11/17/2012 Procedures Jared Richey MD 11/08/2012 Office visit Jared Richey MD 08/01/2012 Office visit Shilpa Olson APRN
--- OUTSIDE RECORDS SUMMARY | 2017-07-02 11:26 | XMS REPORT | CCD ---
Author Author DALLIN EL Organization Unknown Address [address] [facility] [address] [place] [address] Care Team Providers Care Support Worker Name Role Phone KEVIN DALY, JH Gallegos Attphys Allergies Allergy Code Allergy Type Reaction Status No Known Allergies 0 Drug allergy Active Active Medications Unknown or Not Available. Problems Problem Code Start Date Resolved Date Status CHEST PAIN 94874 Active Procedures Procedure Code Procedure Type Date Arthroplasty, interposition, intercarpal or carpometacarpal joints 64733 CPT 10/01/2016 Results Unknown or Not Available. Function Status Unknown or Not Available. History of Immunizations Immunization Code Date Hep B, adult 43 12/03/1995 Hep B, adult 43 12/31/1995 Hep B, adult 43 07/28/1996 Plan of Treatment Unknown or Not Available. Social History Smoking Status Code Start Date End Date Never smoker [id number] Vital Signs Vital Sign Value Unit Date/Time Recent/Initial? Weight Measured 255 [lb_av] 09/30/2016 11:14 Initial VS Height 71 [in_i] 09/30/2016 11:14 Initial VS BMI (Body Mass Index) 35.56 kg/m2 09/30/2016 11:14 Initial VS BSA (Body Surface Area) 2.41 m2 09/30/2016 11:14 Initial VS BP Systolic 174 mm[Hg] 10/01/2016 18:05 Initial VS BP Diastolic 102 mm[Hg] 10/01/2016 18:05 Initial VS Respiratory Rate 18 /min 10/01/2016 18:05 Initial VS Heart Rate 76 /min 10/01/2016 18:05 Initial VS O2 % BldC Oximetry 91 % 10/01/2016 18:05 Initial VS BP Systolic 134 mm[Hg] 10/01/2016 18:08 Most Recent VS BP Diastolic 78 mm[Hg] 10/01/2016 18:08 Most Recent VS Respiratory Rate 17 /min 10/01/2016 18:08 Most Recent VS Heart Rate 72 /min 10/01/2016 18:08 Most Recent VS O2 % BldC Oximetry 95 % 10/01/2016 18:08 Most Recent VS Function Status Unknown or Not Available. Goals Unknown or Not Available. ASSESSMENTS Unknown or Not Available. Health Concerns Section Unknown or Not Available.
--- OUTSIDE RECORDS SUMMARY | 2017-07-02 11:27 | XMS REPORT ---
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 History of Procedures Date Ordered Description Order Status 05/15/2011 12:00 AM COMPLETE CBC W/AUTO DIFF WBC Reviewed 05/15/2011 12:00 AM VITAMIN B-12 Reviewed 05/15/2011 12:00 AM ASSAY OF FERRITIN Reviewed 05/15/2011 12:00 AM ASSAY THYROID STIM HORMONE Reviewed 05/15/2011 12:00 AM ASSAY OF TOTAL THYROXINE Reviewed 05/15/2011 12:00 AM Bicillin CR 1.2 million units IM [facility]#[id number] Reviewed 07/31/2015 12:00 AM Bicillin CR, 1.2 million units [facility]# 50359-463-02 Reviewed 07/31/2011 12:00 AM MAMMOGRAM SCREENING Reviewed 10/02/2011 12:00 AM Bicillin CR 1.2 million units IM [facility]#46854554475 Reviewed 04/01/2012 12:00 AM CYTOPATH C/V THIN LAYER Reviewed 04/04/2012 12:00 AM MAMMOGRAM SCREENING Reviewed 06/03/2012 12:00 AM Bicillin CR, Per 100,000 units [facility]# 97581-238-60 Reviewed 08/01/2012 12:00 AM THER/PROPH/DIAG INJ SC/IM Reviewed 08/01/2012 12:00 AM Decadron, Per 1 Mg [facility]# [address]-49 Reviewed 08/01/2012 12:00 AM Depo-Medrol, Per 80 Mg [facility]#6698-7887-12 Reviewed 11/08/2012 12:00 AM CHYLMD TRACH DNA [...] Reviewed 07/18/2013 12:00 AM Decadron 8 mg [facility]# [address]-62 Reviewed 07/18/2013 12:00 AM Depo-Medrol 80 mg [facility]#[address]-08 Reviewed 08/04/2013 12:00 AM Bicillin CR, 1.2 million units [facility]# 39258-592-74 Reviewed 12/11/2013 12:00 AM IMMUNOASSAY TUMOR CA [...] Returned 06/01/2014 12:00 AM Decadron 8 mg [facility]# [address]-34 Reviewed 06/01/2014 12:00 AM Depo-Medrol 80 mg [facility]#[address]-80 Reviewed 06/19/2014 12:00 AM US EXAM PELVIC [...] pharyngitis, unspecified etiology Jul 31 2015 8:41AM Payers Insurance Name Company Name Plan Name Plan Number Policy Number Policy Group Number [id number] October History of Encounters Visit Date Visit Type Provider 07/31/2015 Office visit Pepe Young DO 07/15/2015 Office visit Pepe Young DO 01/04/2015 Office visit Wicho Lomeli STATIONARY STEAM ENGINEER 12/04/2014 Office visit Kulwant Hernandez DO 10/05/2014 Procedures Kulwant Hernandez DO 09/26/2014 Office visit Nelly Cardona MD 07/10/2014 Office visit Ayla Herrera STATIONARY STEAM ENGINEER 06/25/2014 Office visit Jared Richey MD 06/21/2014 Office visit Nelly Cardona MD 06/12/2014 Office visit Jared Richey MD 05/10/2014 Office visit Nelly Cardona MD 02/28/2014 Office visit Shilpa Olson STATIONARY STEAM ENGINEER 12/11/2013 Office visit Jared Richey MD 12/07/2013 Office visit Wicho Lomeli STATIONARY STEAM ENGINEER 10/24/2013 Office visit Pepe Young DO 09/11/2013 [...]
--- OUTSIDE RECORDS SUMMARY | 2017-07-02 11:29 | XMS REPORT ---
Author Author Pepe Young [facility] Address [address] [place] [id number] Care Team Providers Care Programming Intern Name Role Phone Pepe Young PCP Unavailable [...] TAKE 1 TABLET BY MOUTH EVERY DAY Name Start Date Expiration Date SIG Comments [...] mg) by oral route once daily Acid Woodwinds Teacher PRN 09/11/2013 Sprintec (28) 0.25-35 mg-mcg oral [...] HC BMI BSA BMI Percentile O2 Sat(%) 09/29/2016 10:21:00 AM 136 mmHg 60 mmHg 65 bpm 20 rpm 97.5 F 255 lbs 69 in 37.66 kg/m2 2.37 m2 98 % 07/03/2016 2:41:00 PM 136 mmHg 70 mmHg 56 bpm 20 rpm 98.1 F 249 lbs 69 in 36.7705 kg/m 2.3449 m 98 % 05/22/2016 1:48:00 PM 132 mmHg 70 mmHg 74 bpm 18 rpm 98.2 F 251 lbs 69 in 37.07 kg/m2 2.35 m2 99 % 04/17/2016 1:39:00 PM 130 mmHg 76 mmHg 67 bpm 18 rpm 98.4 F 250 lbs 69 in 36.9182 kg/m 2.3496 m 97 % 03/13/2016 1:48:00 PM 138 mmHg [...] Comments Alcohol Never Tobacco 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 History of Procedures Date Ordered Description Order Status 05/15/2011 12:00 AM COMPLETE CBC W/AUTO DIFF WBC Reviewed 05/15/2011 12:00 AM VITAMIN B-12 Reviewed 05/15/2011 12:00 AM ASSAY OF FERRITIN Reviewed 05/15/2011 12:00 AM ASSAY THYROID STIM HORMONE Reviewed 05/15/2011 12:00 AM ASSAY OF TOTAL THYROXINE Reviewed 05/15/2011 12:00 AM Bicillin CR 1.2 million units IM [facility]#[id number] Reviewed 07/31/2015 12:00 AM Bicillin CR, 1.2 million units [facility]# 89454-598-54 Reviewed 08/06/2015 12:00 AM US EXAM PELVIC [...] AM Bicillin CR 1.2 million units IM [facility]#16968302591 Reviewed 04/17/2016 12:00 AM Bicillin CR, 1.2 million units [facility]# 72450-806-44 Reviewed 09/29/2016 12:00 AM Decadron 4mg Injection Reviewed 09/29/2016 12:00 AM Depo-Medrol 40mg Injection Reviewed 04/01/2012 12:00 AM CYTOPATH C/V THIN LAYER Reviewed 04/04/2012 12:00 AM MAMMOGRAM SCREENING Reviewed 06/03/2012 12:00 AM Bicillin CR, Per 100,000 units [facility]# 64406-262-04 Reviewed 08/01/2012 12:00 AM THER/PROPH/DIAG INJ SC/IM Reviewed 08/01/2012 12:00 AM Decadron, Per 1 Mg [facility]# [address]-64 Reviewed 08/01/2012 12:00 AM Depo-Medrol, Per 80 Mg [facility]#1009-3519-26 Reviewed 11/08/2012 12:00 AM CHYLMD TRACH DNA [...] Reviewed 07/18/2013 12:00 AM Decadron 8 mg [facility]# [address]-00 Reviewed 07/18/2013 12:00 AM Depo-Medrol 80 mg [facility]#[address]-16 Reviewed 08/04/2013 12:00 AM Bicillin CR, 1.2 million units [facility]# 46568-829-56 Reviewed 12/11/2013 12:00 AM IMMUNOASSAY TUMOR CA [...] Reviewed 06/01/2014 12:00 AM Decadron 8 mg [facility]# [address]-71 Reviewed 06/01/2014 12:00 AM Depo-Medrol 80 mg [facility]#[address]-02 Reviewed 06/19/2014 12:00 AM US EXAM PELVIC [...] 4.57 HGB 11.90 g/dLHCT 38.20 %MCV 84.0 fLMCH 26.0 pgMCHC 31.20 g/dLRDW SD 44 RDW CV 14.30 [...] non-recurrent maxillary sinusitis Sep 29 2016 10:23AM Payers Insurance Name Company Name Plan Name Plan Number Policy Number Policy Group Number Start Date [employer]BS [employer] [place] [id number] N/A [employer] [facility] [place] [id number] October History of Encounters Visit Date Visit [...] Surgery Kulwant Hernandez DO 06/19/2013 Surgery Kulwant David DO 06/13/2013 Office visit Kulwant Hernandez DO 06/09/2013 [facility] DO 03/20/2013 Office visit Jared Richey MD 11/17/2012 Procedures Jared Richey MD 11/08/2012 Office visit Jared Richey MD 08/01/2012 Office visit Shilpa Olson APRN
--- OUTSIDE RECORDS SUMMARY | 2017-07-02 11:30 | XMS REPORT ---
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 History of Procedures Date Ordered Description Order Status 05/15/2011 12:00 AM COMPLETE CBC W/AUTO DIFF WBC Reviewed 05/15/2011 12:00 AM VITAMIN B-12 Reviewed 05/15/2011 12:00 AM ASSAY OF FERRITIN Reviewed 05/15/2011 12:00 AM ASSAY THYROID STIM HORMONE Reviewed 05/15/2011 12:00 AM ASSAY OF TOTAL THYROXINE Reviewed 05/15/2011 12:00 AM Bicillin CR 1.2 million units IM [facility]#[id number] Reviewed 07/31/2011 12:00 AM MAMMOGRAM SCREENING Reviewed 10/02/2011 12:00 AM Bicillin CR 1.2 million units IM [facility]#[id number] Reviewed 04/01/2012 12:00 AM CYTOPATH C/V THIN LAYER Reviewed 04/04/2012 12:00 AM MAMMOGRAM SCREENING Reviewed 06/03/2012 12:00 AM Bicillin CR, Per 100,000 units [facility]# 90811-234-18 Reviewed 08/01/2012 12:00 AM THER/PROPH/DIAG INJ SC/IM Reviewed 08/01/2012 12:00 AM Decadron, Per 1 Mg [facility]# [address]-61 Reviewed 08/01/2012 12:00 AM Depo-Medrol, Per 80 Mg [facility]#9449-2178-95 Reviewed 11/08/2012 12:00 AM CHYLMD TRACH DNA [...] Reviewed 07/18/2013 12:00 AM Decadron 8 mg [facility]# [address]-74 Reviewed 07/18/2013 12:00 AM Depo-Medrol 80 mg [facility]#[address]-48 Reviewed 08/04/2013 12:00 AM Bicillin CR, 1.2 million units [facility]# 94519-577-45 Reviewed 12/11/2013 12:00 AM IMMUNOASSAY TUMOR CA [...] Returned 06/01/2014 12:00 AM Decadron 8 mg [facility]# [address]-05 Reviewed 06/01/2014 12:00 AM Depo-Medrol 80 mg [facility]#[address]-01 Reviewed 06/19/2014 12:00 AM US EXAM PELVIC [...] ischemic heart disease Apr 19 2015 1:35PM Payers Insurance Name Company Name Plan Name Plan Number Policy Number Policy Group Number [id number] October History of Encounters Visit Date Visit Type Provider 01/04/2015 Office visit Wicho Lomeli CLINICAL NURSING INTERN 12/04/2014 Office visit Kulwant Hernandez DO 10/05/2014 Procedures Kulwant Hernandez DO 09/26/2014 Office visit Nelly Cardona MD 07/10/2014 Office visit Ayla Herrera CLINICAL NURSING INTERN 06/25/2014 Office visit Jared Richey MD [...] visit Pepe Young DO 07/11/2013 Surgery Kulwant Sergiouman DO 06/26/2013 Office visit Jared Richey MD 06/23/2013 Surgery Kulwant Sergiouman DO 06/19/2013 Surgery Kulwant Hilluman DO 06/13/2013 Office visit Kulwant Hernandez DO 06/09/2013 [facility] DO 03/20/2013 Office visit Jared Richey MD 11/17/2012 Procedures Jared Richey MD 11/08/2012 Office visit Jared Richey MD 08/01/2012 Office visit Shilpa Olson APRN
--- OUTSIDE RECORDS SUMMARY | 2017-07-02 11:31 | XMS REPORT ---
Author Author Pepe Young [facility] Address [address] [place] [id number] Care Team Providers Care Tube Machine Operator Helper Name Role Phone Pepe Young PCP Unavailable Allergies and Adverse Reactions Name Reaction Notes clobetasol rash Plan of Treatment Planned Activity Comments Planned Date Planned Time Plan/Goal Hemoglobin A1c measurement 11/20/2016 12:00 AM BMP 11/20/2016 12:00 AM Insulin measurement 11/20/2016 12:00 AM Rapid Strep 07/10/2014 12:00 AM [...] TAKE 1 TABLET BY MOUTH EVERY DAY montelukast 10 mg oral tablet 11/11/2016 take 1 tablet (10 mg) by oral route once daily in the evening Symbicort 80-4.5 mcg/actuation inhalation HFA aerosol inhaler inhale 2 puffs by inhalation route 2 times per day in the morning and evening fluconazole 100 mg oral tablet 11/20/2016 take 1 tablet (100 mg) by oral route every other day Name Start Date Expiration Date SIG [...] for 7 days amoxicillin 500 mg oral tablet 10/16/2016 10/23/2016 take 1 tablet (500 mg) by oral route every 12 hours for 7 days prednisone 20 mg oral tablet 11/11/2016 11/16/2016 take 1 tablet (20 mg) by oral route once daily Discontinued [...] mg) by oral route once daily Acid Revenue Agent PRN 09/11/2013 Sprintec (28) 0.25-35 mg-mcg oral [...] once daily before breakfast for 30 days Diflucan 100 mg oral tablet 10/29/2016 11/11/2016 TAKE 1 TABLET BY ORAL ROUTE EVERY OTHER DAY Problem List Description Status Onset Gastroesophageal Reflux Active Hypertension Active Abnormal Uterine Bleeding Active 11/13/2012 Breast Cancer Active 06/23/2013 Menopause ovarian failure Active 06/25/2014 Vitiligo Active 09/26/2014 Breast cancer Active 10/07/2014 Abnormal Breast Ultrasound Active 12/04/2014 Vital Signs Date Time BP-Sys(mm[Hg] BP-Ellen(mm[Hg]) HR(bpm) RR(rpm) Temp WT HT HC BMI BSA BMI Percentile O2 Sat(%) 11/20/2016 2:24:00 PM 138 mmHg 78 mmHg 64 bpm 20 rpm 97.8 F 256 lbs 69 in 37.80 kg/m2 2.38 m2 100 % 11/11/2016 9:40:00 AM 118 mmHg 70 mmHg 59 bpm 18 rpm 97.2 F 255 lbs 69 in 37.6565 kg/m 2.373 m 97 % 10/16/2016 2:37:00 PM 128 mmHg 68 mmHg [...] Comments Alcohol Never Tobacco 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[employer] Caffeine Current every day History of Procedures Date Ordered Description Order Status 05/15/2011 12:00 AM COMPLETE CBC W/AUTO DIFF WBC Reviewed 05/15/2011 12:00 AM VITAMIN B-12 Reviewed 05/15/2011 12:00 AM ASSAY OF FERRITIN Reviewed 05/15/2011 12:00 AM ASSAY THYROID STIM HORMONE Reviewed 05/15/2011 12:00 AM ASSAY OF TOTAL THYROXINE Reviewed 05/15/2011 12:00 AM Bicillin CR 1.2 million units IM [facility]#[id number] Reviewed 07/31/2015 12:00 AM Bicillin CR, 1.2 million units [facility]# 00061-407-94 Reviewed 08/06/2015 12:00 AM US EXAM PELVIC COMPLETE Reviewed 08/06/2015 12:00 AM SPECIMEN HANDLING OFFICE-LAB Reviewed 08/06/2015 12:00 AM CYTOPATH C/V THIN LAYER Reviewed 08/27/2015 12:00 AM BIOPSY OF UTERUS LINING Reviewed 09/06/2015 12:00 AM Orthopedic Consultation Reviewed 07/31/2011 12:00 AM MAMMOGRAM SCREENING Reviewed 01/06/2016 12:00 AM US EXAM PELVIC COMPLETE Reviewed 01/06/2016 12:00 AM TRANSVAGINAL US NON-OB Reviewed 02/10/2016 12:00 AM COMPLETE CBC W/AUTO DIFF WBC Reviewed 02/10/2016 12:00 AM URINE TEST Reviewed 02/10/2016 12:00 AM Type & Screen (PREOP) Reviewed 03/13/2016 12:00 AM ASSAY THYROID STIM HORMONE Reviewed 03/13/2016 12:00 AM ASSAY OF INSULIN Reviewed 03/13/2016 12:00 AM METABOLIC PANEL TOTAL CA Reviewed 03/13/2016 12:00 AM COMPLETE CBC W/AUTO DIFF WBC Reviewed 10/02/2011 12:00 AM Bicillin CR 1.2 million units IM [facility]#[id number] Reviewed 04/17/2016 12:00 AM Bicillin CR, 1.2 million units [facility]# 25151-262-48 Reviewed 09/29/2016 12:00 AM Decadron 4mg Injection Reviewed 09/29/2016 12:00 AM Depo-Medrol 40mg Injection Reviewed 11/20/2016 12:00 AM Bicillin CR Injection 1.2 million units Reviewed 04/01/2012 12:00 AM CYTOPATH C/V THIN LAYER Reviewed 04/04/2012 12:00 AM MAMMOGRAM SCREENING Reviewed 06/03/2012 12:00 AM THER/PROPH/DIAG INJ SC/IM Reviewed 06/03/2012 12:00 AM Bicillin CR, Per 100,000 units [facility]# 18833-964-23 Reviewed 08/01/2012 12:00 AM THER/PROPH/DIAG INJ SC/IM Reviewed 08/01/2012 12:00 AM Decadron, Per 1 Mg [facility]# [address]-64 Reviewed 08/01/2012 12:00 AM Depo-Medrol, Per 80 Mg [facility]#5893-7039-37 Reviewed 11/08/2012 12:00 AM CHYLMD TRACH DNA [...] Reviewed 07/18/2013 12:00 AM Decadron 8 mg [facility]# [address]-41 Reviewed 07/18/2013 12:00 AM Depo-Medrol 80 mg [facility]#[address]-80 Reviewed 08/04/2013 12:00 AM Bicillin CR, 1.2 million units [facility]# 23946-117-84 Reviewed 12/11/2013 12:00 AM IMMUNOASSAY TUMOR CA 125 Reviewed 12/11/2013 12:00 AM US EXAM PELVIC COMPLETE Reviewed 12/19/2013 12:00 AM US EXAM PELVIC COMPLETE Reviewed 02/28/2014 12:00 AM URINALYSIS AUTO W/SCOPE Reviewed 02/28/2014 12:00 AM N.GONORRHOEAE DNA AMP PROB Reviewed 02/28/2014 12:00 AM CHLAMYDIA CULTURE Reviewed 02/28/2014 12:00 AM SMEAR WET MOUNT SALINE/INK Reviewed 02/28/2014 12:00 AM TISSUE EXAM FOR FUNGI Reviewed 03/09/2014 12:00 AM Orthopedic Consult Reviewed 06/01/2014 12:00 AM Decadron 8 mg [facility]# [address]-31 Reviewed 06/01/2014 12:00 AM Depo-Medrol 80 mg [facility]#[address]-16 Reviewed 06/19/2014 12:00 AM US EXAM PELVIC [...] recurrence not specified Oct 16 2016 2:40PM Acute bronchitis Nov 11 2016 9:42AM Hyperglycemia Nov 20 2016 2:27PM Acute bronchitis, unspecified organism Nov 20 2016 2:27PM Payers Insurance Name Company Name Plan Name Plan Number Policy Number Policy Group Number Start Date BCBS [facility] [id number] N/A BCBS [facility] [id number] October History of Encounters Visit Date Visit Type Provider 11/11/2016 Office visit Pepe Young DO 09/29/2016 Office visit Pepe Young DO 03/03/2016 [...] Wicho Lomeli APRN 12/04/2014 Office visit Kulwant eHrnandez DO 10/05/2014 Procedures Kulwant Hernandez DO 09/26/2014 Office visit Nelly Cardona MD 07/10/2014 Office visit Ayla Herrera LABOURERS 06/25/2014 Office visit Jared Richey MD 06/21/2014 Office visit Nelly Cardona MD 06/12/2014 Office visit 06/12/2014 Office visit Jared Richey MD 05/10/2014 Office visit Nelly Cardona MD 02/28/2014 Office visit Shilpa Olson LABOURERS 12/11/2013 Office visit Jared Richey MD 12/07/2013 Office visit Wicho Lomeli APRN 10/24/2013 Office visit Pepe Young DO 09/11/2013 Office visit Jared Richey MD 07/25/2013 Office visit Kulwant Hernandez DO 07/18/2013 Office visit Pepe Young DO 07/11/2013 Surgery Kulwant Sergiojulia DO 06/26/2013 Office visit Jared Richey MD 06/23/2013 Surgery Kulwant David DO 06/19/2013 Surgery Kulwant David DO 06/13/2013 Office visit Kulwant Hernandez DO 06/09/2013 [facility] DO 03/20/2013 Office visit Jared Richey MD 11/17/2012 Procedures Jared Richey MD 11/08/2012 Office visit Jared Richey MD 08/01/2012 Office visit Shilpa Olson APRN
--- OUTSIDE RECORDS SUMMARY | 2017-07-02 11:33 | XMS REPORT ---
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[employer] Caffeine Current every day History of Procedures Date Ordered Description Order Status 05/15/2011 12:00 AM COMPLETE CBC W/AUTO DIFF WBC Reviewed 05/15/2011 12:00 AM VITAMIN B-12 Reviewed 05/15/2011 12:00 AM ASSAY OF FERRITIN Reviewed 05/15/2011 12:00 AM ASSAY THYROID STIM HORMONE Reviewed 05/15/2011 12:00 AM ASSAY OF TOTAL THYROXINE Reviewed 05/15/2011 12:00 AM Bicillin CR 1.2 million units IM [facility]#[id number] Reviewed 07/31/2015 12:00 AM Bicillin CR, 1.2 million units [facility]# 91836-227-89 Reviewed 08/06/2015 12:00 AM US EXAM PELVIC COMPLETE Returned 08/06/2015 12:00 AM SPECIMEN HANDLING OFFICE-LAB Reviewed 08/06/2015 12:00 AM CYTOPATH C/V THIN LAYER Returned 08/27/2015 12:00 AM BIOPSY OF UTERUS LINING Returned 09/06/2015 12:00 AM Orthopedic Consultation Reviewed 07/31/2011 12:00 AM MAMMOGRAM SCREENING Reviewed 01/06/2016 12:00 AM US EXAM PELVIC COMPLETE Returned 01/06/2016 12:00 AM TRANSVAGINAL US NON-OB Returned 10/02/2011 12:00 AM Bicillin CR 1.2 million units [facility]#[id number] Reviewed 04/01/2012 12:00 AM CYTOPATH C/V THIN LAYER Reviewed 04/04/2012 12:00 AM MAMMOGRAM SCREENING Reviewed 06/03/2012 12:00 AM Bicillin CR, Per 100,000 units [facility]# 27105-675-83 Reviewed 08/01/2012 12:00 AM THER/PROPH/DIAG INJ SC/IM Reviewed 08/01/2012 12:00 AM Decadron, Per 1 Mg [facility]# [address]-05 Reviewed 08/01/2012 12:00 AM Depo-Medrol, Per 80 Mg [facility]#0327-0611-94 Reviewed 11/08/2012 12:00 AM CHYLMD TRACH DNA [...] Reviewed 07/18/2013 12:00 AM Decadron 8 mg [facility]# [address]-50 Reviewed 07/18/2013 12:00 AM Depo-Medrol 80 mg [facility]#[address]-77 Reviewed 08/04/2013 12:00 AM Bicillin CR, 1.2 million units [facility]# 95255-835-87 Reviewed 12/11/2013 12:00 AM IMMUNOASSAY TUMOR CA [...] Returned 06/01/2014 12:00 AM Decadron 8 mg [facility]# [address]-01 Reviewed 06/01/2014 12:00 AM Depo-Medrol 80 mg [facility]#[address]-90 Reviewed 06/19/2014 12:00 AM US EXAM PELVIC [...] 0.02 CEA 0.50 ng/mLCA 27.29 25.20 U/mL History Of Immunizations Not available. History [...] Postmenopausal vaginal bleeding Jan 01 2016 1:53PM Payers Insurance Name Company Name Plan Name Plan Number Policy Number Policy Group Number Start Date BCBS [facility] [id number] October History of Encounters Visit Date Visit Type Provider 02/10/[address] Allegra Pineda MD 08/27/[address] Allegra Pineda MD 08/21/[address] Allegra Pineda MD 08/06/2015 Office visit 08/06/[address] Allegra Pineda MD 07/31/2015 Office visit Pepe Hannah DO 07/15/2015 Office visit Pepe Hannah DO 01/04/2015 Office visit Wicho Lomeli CHEMIST HELPER 12/04/2014 Office visit Kulwant Bouman DO 10/05/2014 [...] Wicho Lomeli APRN 10/24/2013 Office visit Pepe Hannah DO 09/11/2013 Office visit Jared Richey MD 07/25/2013 Office visit Kulwant Bouman DO 07/18/2013 Office visit Pepe Hannah DO 07/11/2013 Surgery Kulwant Bouman DO 06/26/2013 Office visit Jared Richey MD 06/23/2013 Surgery Kulwant Bouman DO 06/19/2013 Surgery Kulwant Bouman DO 06/13/2013 Office visit Kulwant Bouman DO 06/09/2013 [facility] DO 03/20/2013 Office visit Jared Richey MD 11/17/2012 Procedures Jared Richey MD 11/08/2012 Office visit Jared Richey MD 08/01/2012 Office visit Shilpa Olson APRN
--- OUTSIDE RECORDS SUMMARY | 2017-07-02 11:34 | XMS REPORT ---
Author Author Pepe Young [facility] Address [address] [place] [phone] Care Team Providers Care Insurance Case Manager Name Role Phone Pepe Young PCP Unavailable Allergies and Adverse Reactions Name Reaction Notes clobetasol rash Plan of Treatment Planned Activity Comments Planned Date Planned Time Plan/Goal Basic metabolic profile 03/12/2017 12:00 AM Rapid Strep 07/10/2014 12:00 AM [...] TAKE 1 TABLET BY MOUTH EVERY DAY Symbicort 80-4.5 mcg/actuation inhalation HFA aerosol inhaler inhale 2 puffs by inhalation route 2 times per day in the morning and evening hydrochlorothiazide 25 mg oral tablet 02/10/2017 TAKE 1/2 TABLET BY MOUTH DAILY montelukast 10 mg oral tablet 02/23/2017 08/22/2017 take 1 tablet (10 mg) by oral route once daily in the evening for 30 days cyclobenzaprine 10 mg oral tablet 03/12/2017 take 1 tablet (10 mg) by oral route at bedtime as needed prednisone 20 mg oral tablet 04/23/2017 take 3 tablets by oral route once daily for 3 days then 2 tablets daily for 2 days benzonatate 200 mg oral capsule 04/23/2017 take 1 capsule (200 mg) by oral route 3 times per day as needed for cough Name Start Date Expiration Date SIG Comments [...] (20 mg) by oral route once daily Contrave 8-90 mg oral tablet extended release 12/11/2016 03/11/2017 take 2 tablets by oral route 2 times per day in the morning and evening for 30 days Discontinued Name Start Date Discontinued Date [...] mg) by oral route once daily Acid Card Grader PRN 09/11/2013 Sprintec (28) 0.25-35 mg-mcg oral [...] TABLET BY ORAL ROUTE EVERY OTHER DAY fluconazole 100 mg oral tablet 11/20/2016 02/23/2017 take 1 tablet (100 mg) by oral route every other day [id number]-ggvdzquev-[id number] 3.5-10,000-1 mg/mL-unit/mL-% otic solution 12/11/2016 instill 4 drops into affected ear(s) by otic route 3 times per day Problem List Description Status Onset Gastroesophageal Reflux Active Hypertension Active Abnormal Uterine Bleeding Active 11/13/2012 Menopause ovarian failure Active 06/25/2014 Vitiligo Active 09/26/2014 Breast cancer Active 10/07/2014 Abnormal Breast Ultrasound Active 12/04/2014 Vital Signs Date Time BP-Sys(mm[Hg] BP-Ellen(mm[Hg]) HR(bpm) RR(rpm) Temp WT HT HC BMI BSA BMI Percentile O2 Sat(%) 04/23/2017 2:28:00 PM 138 mmHg 70 mmHg 62 bpm 18 rpm 257 lbs 70 in 36.88 kg/m2 2.40 m2 97 % 04/02/2017 2:34:00 PM 136 mmHg 76 mmHg 76 bpm 18 rpm 97.2 F 259 lbs 70 in 37.1622 kg/m 2.4088 m 98 % 03/12/2017 1:49:00 PM 138 mmHg 70 mmHg 50 bpm 18 rpm 97.6 F 256 lbs 69 in 37.80 kg/m2 2.38 m2 100 % 02/23/2017 8:35:00 AM 140 mmHg 70 mmHg 59 bpm 20 rpm 97.9 F 256 lbs 69 in 37.8042 kg/m 2.3776 m 97 % 02/19/2017 2:46:00 PM 118 mmHg 80 mmHg 60 bpm 16 rpm 95.6 F 256 lbs 71 in 35.70 kg/m2 2.41 m2 97 % 12/11/2016 1:31:00 PM 124 mmHg 72 mmHg 63 bpm 18 rpm 95.1 F 256 lbs 71 in 35.7044 kg/m 2.4118 m 98 % 11/20/2016 2:24:00 PM 138 mmHg 78 mmHg [...] Comments Alcohol Never Tobacco Never smoker 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[employer] Caffeine Current every day History of Procedures Date Ordered Description Order Status 05/15/2011 12:00 AM COMPLETE CBC W/AUTO DIFF WBC Reviewed 05/15/2011 12:00 AM VITAMIN B-12 Reviewed 05/15/2011 12:00 AM ASSAY OF FERRITIN Reviewed 05/15/2011 12:00 AM ASSAY THYROID STIM HORMONE Reviewed 05/15/2011 12:00 AM ASSAY OF TOTAL THYROXINE Reviewed 05/15/2011 12:00 AM Bicillin CR 1.2 million units IM [facility]#[id number] Reviewed 07/31/2015 12:00 AM Bicillin CR, 1.2 million units [facility]# 31026-750-83 Reviewed 08/06/2015 12:00 AM US EXAM PELVIC [...] AM Bicillin CR 1.2 million units IM [facility]#[id number] Reviewed 04/17/2016 12:00 AM Bicillin CR, 1.2 million units [facility]# 12168-570-26 Reviewed 09/29/2016 12:00 AM Decadron 4mg Injection Reviewed 09/29/2016 12:00 AM Depo-Medrol 40mg Injection Reviewed 11/20/2016 12:00 AM Bicillin CR Injection 1.2 million units Reviewed 04/01/2012 12:00 AM CYTOPATH C/V THIN LAYER Reviewed 04/04/2012 12:00 AM MAMMOGRAM SCREENING Reviewed 02/19/2017 12:00 AM Decadron 8mg Injection Reviewed 02/19/2017 12:00 AM Depo-Medrol 80mg Injection Reviewed 02/19/2017 12:00 AM Decadron 8mg Injection Reviewed 02/19/2017 12:00 AM Depo-Medrol 80mg Injection Reviewed 02/23/2017 12:00 AM Bicillin CR Injection 1.2 million units Reviewed 04/02/2017 12:00 AM Bicillin LA, 1.2 million units [facility]# [address]-03 Reviewed 04/23/2017 12:00 AM Bicillin LA, 1.2 million units [facility]# [address]-03 Reviewed 06/03/2012 12:00 AM THER/PROPH/DIAG INJ SC/IM Reviewed 06/03/2012 12:00 AM Bicillin CR, Per 100,000 units [facility]# 91374-160-19 Reviewed 08/01/2012 12:00 AM THER/PROPH/DIAG INJ SC/IM Reviewed 08/01/2012 12:00 AM Decadron, Per 1 Mg [facility]# [address]-89 Reviewed 08/01/2012 12:00 AM Depo-Medrol, Per 80 Mg [facility]#0087-2357-09 Reviewed 11/08/2012 12:00 AM CHYLMD TRACH DNA [...] Reviewed 07/18/2013 12:00 AM Decadron 8 mg [facility]# [address]-72 Reviewed 07/18/2013 12:00 AM Depo-Medrol 80 mg [facility]#[address]-22 Reviewed 08/04/2013 12:00 AM Bicillin CR, 1.2 million units [facility]# 44470-118-12 Reviewed 12/11/2013 12:00 AM IMMUNOASSAY TUMOR CA [...] Reviewed 06/01/2014 12:00 AM Decadron 8 mg [facility]# [address]-91 Reviewed 06/01/2014 12:00 AM Depo-Medrol 80 mg [facility]#[address]-32 Reviewed 06/19/2014 12:00 AM US EXAM PELVIC [...] AM C-REACTIVE PROTEIN HS Reviewed Results Summary Date and Description Results 04/02/2011 9:50 PM ESTRADIOL [...] NEGATIVE YEAST NEGATIVE CULT SET UP? NO 12/11/2013 5:06 PM Cancer Antigen (CA) 125 5.0 U/mL 02/28/2014 10:45 AM WET PREP NO TRICH [...] uIU/mL 04/24/2015 6:30 PM CRP-HS 4.90 mg/L 02/14/2016 10:30 AM WBC 6.5 RBC 4.17 HGB 11.20 g/dLHCT 35.70 %MCV 86.0 fLMCH 26.90 pgMCHC 31.40 g/dLRDW SD 44 RDW CV 14.20 %MPV 9.10 fLPLT 256 NRBC# 0.00 NRBC% 0.0 %NEUT 52.50 %%LYMP 34.50 %%MONO 10.20 %%EOS 2.0 %%BASO 0.30 %#NEUT 3.40 #LYMP 2.23 #MONO 0.66 #EOS 0.13 #BASO 0.02 MANUAL DIFF NOT IND TEST UR NEGATIVE 03/14/2016 5:05 AM WBC [...] eGFR AA* >60 TSH 0.850 uIU/mLInsulin 22.5 History Of Immunizations Not available. History of [...] bronchitis, unspecified organism Nov 20 2016 2:27PM Obesity Dec 11 2016 1:37PM Dietary Counseling Dec 11 2016 1:37PM Exercise Counseling Dec 11 2016 1:37PM Acute otitis externa of right ear, unspecified type Dec 11 2016 1:37PM Allergic rhinitis Feb 19 2017 3:32PM Acute pharyngitis Feb 19 2017 2:47PM Acute bronchitis Feb 23 2017 8:38AM Hypokalemia Mar 12 2017 1:51PM Pain in joint of left shoulder Mar 12 2017 1:51PM Pain in joint of left shoulder Apr 02 2017 2:37PM Acute pharyngitis Apr 02 2017 2:37PM Acute bronchitis Apr 23 2017 2:30PM Payers Insurance Name Company Name Plan Name Plan Number Policy Number Policy Group Number Start Date BCBS [facility] [id number] N/A BCBS [facility] [id number] October History of Encounters Visit Date Visit Type Provider 02/23/2017 Office visit Pepe Young DO 11/11/2016 Office visit Pepe Young DO 09/29/2016 [...] Cardona MD 02/28/2014 Office visit Shilpa Olson SUPERVISOR TYPESETTING 12/11/2013 Office visit Jared Richey MD 12/07/2013 [...] 06/13/2013 Office visit Kulwant Hernandez DO 06/09/2013 [facility] DO 03/20/2013 Office visit Jared Richey MD 11/17/2012 Procedures Jared Richey MD 11/08/2012 Office visit Jared Richey MD 08/01/2012 Office visit Shilpa Olson APRN
--- OUTSIDE RECORDS SUMMARY | 2017-07-02 11:35 | XMS REPORT ---
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#[id number] Reviewed 07/31/2011 12:00 AM MAMMOGRAM SCREENING Reviewed 10/02/2011 12:00 AM Bicillin CR 1.2 million units IM [facility]#[id number] Reviewed 04/01/2012 12:00 AM CYTOPATH C/V THIN LAYER Reviewed 04/04/2012 12:00 AM MAMMOGRAM SCREENING Reviewed 06/03/2012 12:00 AM Bicillin CR, Per 100,000 units [facility]# 92064-643-49 Reviewed 08/01/2012 12:00 AM THER/PROPH/DIAG INJ SC/IM Reviewed 08/01/2012 12:00 AM Decadron, Per 1 Mg [facility]# [address]-16 Reviewed 08/01/2012 12:00 AM Depo-Medrol, Per 80 Mg [facility]#0535-6701-57 Reviewed 11/08/2012 12:00 AM CHYLMD TRACH DNA [...] mg [facility]# [address]-44 Reviewed 07/18/2013 12:00 AM Depo-Medrol 80 mg [facility]#[address]-66 Reviewed 08/04/2013 12:00 AM Bicillin CR, 1.2 million units [facility]# 07932-619-29 Reviewed 12/11/2013 12:00 AM IMMUNOASSAY TUMOR CA [...] mg [facility]# [address]-55 Reviewed 06/01/2014 12:00 AM Depo-Medrol 80 mg [facility]#[address]-35 Reviewed 06/19/2014 12:00 AM US EXAM PELVIC [...] Left wrist tendonitis Jul 15 2015 3:15PM Payers Insurance Name Company Name Plan Name Plan Number Policy Number Policy Group Number Start Date [employer] [place] [id number] October History of Encounters Visit Date Visit Type Provider 07/15/2015 Office visit Pepe Young DO 01/04/2015 Office visit Wicho Lomeli PATIENT TRANSPORTER 12/04/2014 Office visit Kulwant Hernandez DO 10/05/2014 Procedures Kulwant Hilluman DO 09/26/2014 Office visit Nelly Cardona MD 07/10/2014 Office visit Ayla Herrera PATIENT TRANSPORTER 06/25/2014 Office visit Jared Richey MD 06/21/2014 [...] 06/13/2013 Office visit Kulwant Hernandez DO 06/09/2013 [facility] DO 03/20/2013 Office visit Jared Richey MD 11/17/2012 Procedures Jared Richey MD 11/08/2012 Office visit Jared Richey MD 08/01/2012 Office visit Shilpa Olson PATIENT TRANSPORTER
--- OUTSIDE RECORDS SUMMARY | 2017-07-02 11:37 | XMS REPORT ---
Author Author Pepe Young [facility] Address [address] [place] [phone] Care Team Providers Care Community Center Coordinator Name Role Phone Pepe Young PCP Unavailable [...] by oral route at bedtime as needed Name Start Date Expiration Date SIG Comments [...] mg) by oral route once daily Acid Managing Broker PRN 09/11/2013 Sprintec (28) 0.25-35 mg-mcg oral [...] once daily in the morning before breakfast [facility] instructions entered methylphenidate 10 mg oral capsule, [...] mg) by oral route every other day [id number]-[id number] 3.5-10,000-1 mg/mL-unit/mL-% otic solution 12/11/2016 instill 4 [...] HC BMI BSA BMI Percentile O2 Sat(%) 03/12/2017 1:49:00 PM 138 mmHg 70 mmHg [...] Comments Alcohol Never Tobacco 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#[id number] Reviewed 07/31/2015 12:00 AM Bicillin CR, 1.2 million units [facility]# 48822-455-99 Reviewed 08/06/2015 12:00 AM US EXAM PELVIC [...] units IM [facility]#[id number] Reviewed 04/17/2016 12:00 AM Bicillin CR, 1.2 million units [facility]# 89571-135-94 Reviewed 09/29/2016 12:00 AM Decadron 4mg Injection [...] Bicillin CR Injection 1.2 million units Reviewed 06/03/2012 12:00 AM THER/PROPH/DIAG INJ SC/IM Reviewed 06/03/2012 12:00 AM Bicillin CR, Per 100,000 units [facility]# 18507-719-61 Reviewed 08/01/2012 12:00 AM THER/PROPH/DIAG INJ SC/IM Reviewed 08/01/2012 12:00 AM Decadron, Per 1 Mg [facility]# [address]-55 Reviewed 08/01/2012 12:00 AM Depo-Medrol, Per 80 Mg [facility]#1412-1366-70 Reviewed 11/08/2012 12:00 AM CHYLMD TRACH DNA [...] 8 mg [facility]# [address]-75 Reviewed 07/18/2013 12:00 AM Depo-Medrol 80 mg [facility]#[address]-27 Reviewed 08/04/2013 12:00 AM Bicillin CR, 1.2 million units [facility]# 30839-822-11 Reviewed 12/11/2013 12:00 AM IMMUNOASSAY TUMOR CA [...] Reviewed 06/01/2014 12:00 AM Decadron 8 mg [facility]# [address]-04 Reviewed 06/01/2014 12:00 AM Depo-Medrol 80 mg [facility]#[address]-43 Reviewed 06/19/2014 12:00 AM US EXAM PELVIC [...] 4.40 HGB 11.70 g/dLHCT 37.60 %MCV 86.0 [facility] 26.60 pgHC 31.10 g/dLRDW SD 44 RDW CV 14.10 [...] IND CEA 0.50 ng/mLCA 27.29 18.30 U/mL 12/23/2016 2:55 PM WBC 6.7 RBC 4.39 HGB 11.60 g/dLHCT 37.30 %MCV 85.0 fLMCH 26.40 pgMCHC 31.10 g/dLRDW SD 45 RDW CV 14.50 %MPV 9.60 fLPLT 208 NRBC# 0.00 NRBC% 0.0 %NEUT 52.30 %%LYMP 32.70 %%MONO 11.20 %%EOS 3.10 %%BASO 0.30 %#NEUT 3.50 #LYMP 2.19 #MONO 0.75 #EOS 0.21 #BASO 0.02 MANUAL DIFF NOT IND GLUCOSE 104.0 mg/dLSODIUM 140.0 mmol/LPOTASSIUM 3.30 mmol/LCHLORIDE 102.0 mmol/LCO2 26.0 mmol/LBUN 13.0 mg/dLCREATININE 1.20 mg/dLSGOT/AST 17.0 IU/LSGPT/ALT 14.0 IU /LALK PHOS 72.0 IU/LTOTAL PROTEIN 7.20 g/dLALBUMIN 4.10 g/dLTOTAL BILI 0.20 mg/ dLCALCIUM 9.50 mg/dLAGE 46 GFR NonAA 48 GFR AA 58 eGFR 48 eGFR AA* 58 CEA 0.60 ng/mLCA 27.29 23.90 U/mL History Of Immunizations Not available. History [...] of left shoulder Mar 12 2017 1:51PM Payers Insurance Name Company Name Plan Name Plan Number Policy Number Policy Group Number Start Date [employer]BS [employer] [place] [id number] N/A BCBS [employer] [facility] [id number] October History of Encounters Visit Date Visit Type Provider 02/23/2017 Office visit Pepe Young DO 11/11/2016 Office visit Pepe Young DO 09/29/2016 Office visit Pepe Young DO 03/03/[address] Allegra Pineda MD 02/19/[address] [facility] [address] Allegra Pineda MD 02/10/[address] Allegra Pineda MD 08/27/[address] Allegra Pineda MD 08/21/[address] Allegra Pineda MD 08/06/2015 Office visit 08/06/[address] Allegra Pineda MD 07/31/2015 Office visit Pepe Hannah DO 07/15/2015 Office visit Pepe Hannah DO 01/04/2015 Office visit Wicho Lomeli LEADERSHIP RECRUITER 12/04/2014 Office visit Kulwant Bouman DO 10/05/2014 [...] 06/13/2013 Office visit Kulwant Bouman DO 06/09/2013 [facility] DO 03/20/2013 Office visit Jared Richey MD 11/17/2012 Procedures Jared Richey MD 11/08/2012 Office visit Jared Richey MD 08/01/2012 Office visit Shilpa Olson APRN
--- OUTSIDE RECORDS SUMMARY | 2017-07-02 11:39 | XMS REPORT ---
Author Author Allegra Pineda [facility] Address [address] [place] [phone] Care Team Providers Care Property Specialist Name Role Phone Allegra Pineda PCP Unavailable Allergies and Adverse Reactions Name Reaction Notes clobetasol rash Plan of Treatment Planned Activity Comments Planned Date Planned Time Plan/Goal ASSAY THYROID STIM HORMONE 03/13/2016 12:00 AM ASSAY OF INSULIN 03/13/2016 12:00 AM METABOLIC PANEL TOTAL CA 03/13/2016 12:00 AM COMPLETE CBC W/AUTO DIFF WBC 03/13/2016 12:00 AM MAMMOGRAM SCREENING 10/02/2011 12:00 AM [...] mg) by oral route once daily Acid Litigation Counsel PRN 09/11/2013 Sprintec (28) 0.25-35 mg-mcg oral [...] Comments Alcohol Never Tobacco 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 every day History of Procedures Date Ordered Description Order Status 05/15/2011 12:00 AM COMPLETE CBC W/AUTO DIFF WBC Reviewed 05/15/2011 12:00 AM VITAMIN B-12 Reviewed 05/15/2011 12:00 AM ASSAY OF FERRITIN Reviewed 05/15/2011 12:00 AM ASSAY THYROID STIM HORMONE Reviewed 05/15/2011 12:00 AM ASSAY OF TOTAL THYROXINE Reviewed 05/15/2011 12:00 AM Bicillin CR 1.2 million units IM [facility]#[id number] Reviewed 07/31/2015 12:00 AM Bicillin CR, 1.2 million units [facility]# 72955-495-97 Reviewed 08/06/2015 12:00 AM US EXAM PELVIC [...] Bicillin CR 1.2 million units IM [facility]#[id number] Reviewed 04/01/2012 12:00 AM CYTOPATH C/V THIN LAYER Reviewed 04/04/2012 12:00 AM MAMMOGRAM SCREENING Reviewed 06/03/2012 12:00 AM Bicillin CR, Per 100,000 units [facility]# 02655-719-61 Reviewed 08/01/2012 12:00 AM THER/PROPH/DIAG INJ SC/IM Reviewed 08/01/2012 12:00 AM Decadron, Per 1 Mg [facility]# [address]-84 Reviewed 08/01/2012 12:00 AM Depo-Medrol, Per 80 Mg [facility]#3008-3371-93 Reviewed 11/08/2012 12:00 AM CHYLMD TRACH DNA [...] 07/18/2013 12:00 AM Decadron 8 mg [facility]# [address]-55 Reviewed 07/18/2013 12:00 AM Depo-Medrol 80 mg [facility]#[address]-73 Reviewed 08/04/2013 12:00 AM Bicillin CR, 1.2 million units [facility]# 34125-628-53 Reviewed 12/11/2013 12:00 AM IMMUNOASSAY TUMOR CA [...] 06/01/2014 12:00 AM Decadron 8 mg [facility]# [address]-71 Reviewed 06/01/2014 12:00 AM Depo-Medrol 80 mg [facility]#[address]-72 Reviewed 06/19/2014 12:00 AM US EXAM PELVIC [...] Policy Number Policy Group Number [id number] October History of Encounters Visit Date Visit [...] DO 01/04/2015 Office visit Wicho Lomeli EDITOR BOOK 12/04/2014 Office visit Kulwant Bouman DO 10/05/2014 Procedures Kulwant Bouman DO 09/26/2014 Office visit Nelly Cardona MD 07/10/2014 Office visit Ayla Herrera EDITOR BOOK 06/25/2014 Office visit Jared Richey MD 06/21/2014 Office visit Nelly Cardona MD 06/12/2014 Office visit 06/12/2014 Office visit Jared Richey MD 05/10/2014 Office visit Nelyl Cardona MD 02/28/2014 Office visit Shilpa Olson EDITOR BOOK 12/11/2013 Office visit Jared Richey MD 12/07/2013 Office visit Wicho Lomeli EDITOR BOOK 10/24/2013 Office visit Pepe Hannah DO 09/11/2013 Office visit Jared Richey MD 07/25/2013 Office visit Kulwant Bouman DO 07/18/2013 Office visit Pepe Hannah DO 07/11/2013 Surgery Kulwant Bouman DO 06/26/2013 Office visit Jared Richey MD 06/23/2013 Surgery Kulwant Bouman DO 06/19/2013 Surgery Kulwant Bouman DO 06/13/2013 Office visit Kulwant Bouman DO 06/09/2013 [facility] DO 03/20/2013 Office visit Jared Richey MD 11/17/2012 Procedures Jared Richey MD 11/08/2012 Office visit Jared Richey MD 08/01/2012 Office visit Shilpa Olson EDITOR BOOK
--- OUTSIDE RECORDS SUMMARY | 2017-07-02 11:40 | XMS REPORT ---
Author Author Wicho Lomeli [facility] Address [address] [place], [place] [address] Care Team Providers Care Reactor Fueling Supervisor Name Role Phone Wicho Lomeli PCP Allergies [...] TAKE (1) TABLET THREE TIMES DAILY DIRECTED. 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 Current every day History of Procedures Date Ordered Description Order Status 05/15/2011 12:00 AM COMPLETE CBC W/AUTO DIFF WBC Reviewed 05/15/2011 12:00 AM VITAMIN B-12 Reviewed 05/15/2011 12:00 AM ASSAY OF FERRITIN Reviewed 05/15/2011 12:00 AM ASSAY THYROID STIM HORMONE Reviewed 05/15/2011 12:00 AM ASSAY OF TOTAL THYROXINE Reviewed 05/15/2011 12:00 AM Bicillin CR 1.2 million units IM [facility][NOTE 3]#[id number] Reviewed 07/31/2011 12:00 AM MAMMOGRAM SCREENING Reviewed 10/02/2011 12:00 AM Bicillin CR 1.2 million units IM [facility][NOTE 3]#63759191404 Reviewed 04/01/2012 12:00 AM CYTOPATH C/V THIN LAYER Reviewed 04/04/2012 12:00 AM MAMMOGRAM SCREENING Reviewed 06/03/2012 12:00 AM Bicillin CR, Per 100,000 units [facility][NOTE 3]# 53666-973-10 Reviewed 08/01/2012 12:00 AM THER/PROPH/DIAG INJ SC/IM Reviewed 08/01/2012 12:00 AM Decadron, Per 1 Mg [facility][NOTE 3]# [address]-86 Reviewed 08/01/2012 12:00 AM Depo-Medrol, Per 80 Mg [facility][NOTE 3]#7738-2237-17 Reviewed 11/08/2012 12:00 AM CHYLMD TRACH DNA [...] Reviewed 07/18/2013 12:00 AM Decadron 8 mg [facility][NOTE 3]# [address]-06 Reviewed 07/18/2013 12:00 AM Depo-Medrol 80 mg [facility][NOTE 3]#[address]-44 Reviewed 08/04/2013 12:00 AM Bicillin CR, 1.2 million units [facility][NOTE 3]# 77936-046-94 Reviewed 12/11/2013 12:00 AM IMMUNOASSAY TUMOR CA [...] Returned 06/01/2014 12:00 AM Decadron 8 mg [facility][NOTE 3]# [address]-91 Reviewed 06/01/2014 12:00 AM Depo-Medrol 80 mg [facility][NOTE 3]#[address]-30 Reviewed 06/19/2014 12:00 AM US EXAM PELVIC [...] Policy Number Policy Group Number [id number] October History of Encounters Visit Date Visit Type Provider 01/04/2015 Office visit Wicho Lomeli PETROLEUM REFINERY OPERATOR 12/04/2014 Office visit Kulwant Hernandez DO 10/05/2014 Procedures Kulwant Hernandez DO 09/26/2014 Office visit Nelly Cardona MD 07/10/2014 Office visit Ayla Herrera PETROLEUM REFINERY OPERATOR 06/25/2014 Office visit Jared Richey MD [...] 06/13/2013 Office visit Kulwant Hernandez DO 06/09/2013 [facility] DO 03/20/2013 Office visit Jared Richey MD 11/17/2012 Procedures Jared Richey MD 11/08/2012 Office visit Jared Richey MD 08/01/2012 Office visit Shilpa Olson APRN
--- OUTSIDE RECORDS SUMMARY | 2017-07-02 11:42 | XMS REPORT ---
Author Author Allegra Pineda [facility] Address [address] [place] [phone] Care Team Providers Care Open Hearth Helper Name Role Phone Allegra Pineda PCP Unavailable [...] EVERY DAY amoxicillin 500 mg oral tablet 07/03/2016 07/10/2016 take 1 tablet (500 mg) by oral route every 12 hours for 7 days phentermine 37.5 mg oral tablet 07/03/2016 08/02/2016 take 1 tablet (37.5 mg ) by [...] mg) by oral route once daily Acid Medical Affairs Leader PRN 09/11/2013 Sprintec (28) 0.25-35 mg-mcg oral [...] HC BMI BSA BMI Percentile O2 Sat(%) 07/03/2016 2:41:00 PM 136 mmHg 70 mmHg [...] Comments Alcohol Never Tobacco 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 Caffeine Current every day History of Procedures Date Ordered Description Order Status 05/15/2011 12:00 AM COMPLETE CBC W/AUTO DIFF WBC Reviewed 05/15/2011 12:00 AM VITAMIN B-12 Reviewed 05/15/2011 12:00 AM ASSAY OF FERRITIN Reviewed 05/15/2011 12:00 AM ASSAY THYROID STIM HORMONE Reviewed 05/15/2011 12:00 AM ASSAY OF TOTAL THYROXINE Reviewed 05/15/2011 12:00 AM Bicillin CR 1.2 million units IM [facility]#[id number] Reviewed 07/31/2015 12:00 AM Bicillin CR, 1.2 million units [facility]# 73350-270-40 Reviewed 08/06/2015 12:00 AM US EXAM PELVIC [...] AM Bicillin CR 1.2 million units IM [facility]#[id number] Reviewed 04/17/2016 12:00 AM Bicillin CR, 1.2 million units [facility]# 28448-227-87 Reviewed 04/01/2012 12:00 AM CYTOPATH C/V THIN LAYER Reviewed 04/04/2012 12:00 AM MAMMOGRAM SCREENING Reviewed 06/03/2012 12:00 AM Bicillin CR, Per 100,000 units [facility]# 39527-441-23 Reviewed 08/01/2012 12:00 AM THER/PROPH/DIAG INJ SC/IM Reviewed 08/01/2012 12:00 AM Decadron, Per 1 Mg [facility]# [address]-86 Reviewed 08/01/2012 12:00 AM Depo-Medrol, Per 80 Mg [facility]#0694-1002-76 Reviewed 11/08/2012 12:00 AM CHYLMD TRACH DNA [...] Reviewed 07/18/2013 12:00 AM Decadron 8 mg [facility]# [address]-43 Reviewed 07/18/2013 12:00 AM Depo-Medrol 80 mg [facility]#[address]-74 Reviewed 08/04/2013 12:00 AM Bicillin CR, 1.2 million units [facility]# 72221-672-69 Reviewed 12/11/2013 12:00 AM IMMUNOASSAY TUMOR CA [...] Reviewed 06/01/2014 12:00 AM Decadron 8 mg [facility]# [address]-51 Reviewed 06/01/2014 12:00 AM Depo-Medrol 80 mg [facility]#[address]-10 Reviewed 06/19/2014 12:00 AM US EXAM PELVIC [...] pharyngitis, unspecified etiology Jul 03 2016 2:49PM Payers Insurance Name Company Name Plan Name Plan Number Policy Number Policy Group Number [facility] Date [id number] October History of Encounters Visit Date Visit [...] Cardona MD 02/28/2014 Office visit Shilpa Olson CARD CHECKER 12/11/2013 Office visit Jared Richey MD 12/07/2013 [...] 06/13/2013 Office visit Kulwant Hernandez DO 06/09/2013 [facility] DO 03/20/2013 Office visit Jared Richey MD 11/17/2012 Procedures Jared Richey MD 11/08/2012 Office visit Jared Richey MD 08/01/2012 Office visit Shilpa Olson APRN
--- OUTSIDE RECORDS SUMMARY | 2017-07-02 11:43 | XMS REPORT ---
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 Caffeine Current every day History of Procedures Date Ordered Description Order Status 05/15/2011 12:00 AM COMPLETE CBC W/AUTO DIFF WBC Reviewed 05/15/2011 12:00 AM VITAMIN B-12 Reviewed 05/15/2011 12:00 AM ASSAY OF FERRITIN Reviewed 05/15/2011 12:00 AM ASSAY THYROID STIM HORMONE Reviewed 05/15/2011 12:00 AM ASSAY OF TOTAL THYROXINE Reviewed 05/15/2011 12:00 AM Bicillin CR 1.2 million units IM [facility]#[id number] Reviewed 07/31/2015 12:00 AM Bicillin CR, 1.2 million units [facility]# 69017-679-66 Reviewed 08/06/2015 12:00 AM US EXAM PELVIC COMPLETE Returned 08/06/2015 12:00 AM SPECIMEN HANDLING OFFICE-LAB Reviewed 08/06/2015 12:00 AM CYTOPATH C/V THIN LAYER Returned 07/31/2011 12:00 AM MAMMOGRAM SCREENING Reviewed 10/02/2011 12:00 AM Bicillin CR 1.2 million units IM [facility]#[id number] Reviewed 04/01/2012 12:00 AM CYTOPATH C/V THIN LAYER Reviewed 04/04/2012 12:00 AM MAMMOGRAM SCREENING Reviewed 06/03/2012 12:00 AM Bicillin CR, Per 100,000 units [facility]# 53072-452-63 Reviewed 08/01/2012 12:00 AM THER/PROPH/DIAG INJ SC/IM Reviewed 08/01/2012 12:00 AM Decadron, Per 1 Mg [facility]# [address]-13 Reviewed 08/01/2012 12:00 AM Depo-Medrol, Per 80 Mg [facility]#6599-5222-04 Reviewed 11/08/2012 12:00 AM CHYLMD TRACH DNA [...] Reviewed 07/18/2013 12:00 AM Decadron 8 mg [facility]# [address]-59 Reviewed 07/18/2013 12:00 AM Depo-Medrol 80 mg [facility]#[address]-87 Reviewed 08/04/2013 12:00 AM Bicillin CR, 1.2 million units [facility]# 22755-218-67 Reviewed 12/11/2013 12:00 AM IMMUNOASSAY TUMOR CA [...] Returned 06/01/2014 12:00 AM Decadron 8 mg [facility]# [address]-25 Reviewed 06/01/2014 12:00 AM Depo-Medrol 80 mg [facility]#[address]-80 Reviewed 06/19/2014 12:00 AM US EXAM PELVIC [...] Endometrial stripe increased Aug 21 2015 3:03PM Payers Insurance Name Company Name Plan Name Plan Number Policy Number Policy Group Number Start Date [facility] [id number] October History of Encounters Visit Date Visit Type Provider 08/21/[address] Allegra Pineda MD 08/06/[address] Allegra Pineda MD 07/31/2015 Office visit Pepe Young DO 07/15/2015 Office visit Pepe Young DO 01/04/2015 Office visit Wicho Lomeli PRIMARY CLASS TEACHER 12/04/2014 Office visit Kulwant Hernandez DO 10/05/2014 [...] Office visit Kulwant Hernandez DO 06/09/2013 [facility] DO 03/20/2013 Office visit Jared Richey MD 11/17/2012 Procedures Jared Richey MD 11/08/2012 Office visit Jared Richey MD 08/01/2012 Office visit Shilpa Olson APRN
--- OUTSIDE RECORDS SUMMARY | 2017-07-02 11:45 | XMS REPORT ---
Author Author Allegra Pineda [facility] Address [address] [place] [phone] Care Team Providers Care Boot Trimmer Name Role Phone Allegra Pineda PCP Unavailable Allergies and Adverse Reactions Name Reaction Notes clobetasol rash Plan of Treatment Planned Activity Comments Planned Date Planned Time Plan/Goal US EXAM PELVIC COMPLETE 01/06/2016 12:00 AM TRANSVAGINAL US NON-OB 01/06/2016 12:00 AM MAMMOGRAM SCREENING 10/02/2011 12:00 AM [...] mg) by oral route once daily Acid Energy Conservation Specialist PRN 09/11/2013 Sprintec (28) 0.25-35 mg-mcg oral [...] Comments Alcohol Never Tobacco 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 Powerflame Caffeine Current every day History of Procedures Date Ordered Description Order Status 05/15/2011 12:00 AM COMPLETE CBC W/AUTO DIFF WBC Reviewed 05/15/2011 12:00 AM VITAMIN B-12 Reviewed 05/15/2011 12:00 AM ASSAY OF FERRITIN Reviewed 05/15/2011 12:00 AM ASSAY THYROID STIM HORMONE Reviewed 05/15/2011 12:00 AM ASSAY OF TOTAL THYROXINE Reviewed 05/15/2011 12:00 AM Bicillin CR 1.2 million units [facility]#[id number] Reviewed 07/31/2015 12:00 AM Bicillin CR, 1.2 million units [facility]# 68944-114-84 Reviewed 08/06/2015 12:00 AM US EXAM PELVIC COMPLETE Returned 08/06/2015 12:00 AM SPECIMEN HANDLING OFFICE-LAB Reviewed 08/06/2015 12:00 AM CYTOPATH C/V THIN LAYER Returned 08/27/2015 12:00 AM BIOPSY OF UTERUS LINING Returned 09/06/2015 12:00 AM Orthopedic Consultation Reviewed 07/31/2011 12:00 AM MAMMOGRAM SCREENING Reviewed 10/02/2011 12:00 AM Bicillin CR 1.2 million units [facility]#[id number] Reviewed 04/01/2012 12:00 AM CYTOPATH C/V THIN LAYER Reviewed 04/04/2012 12:00 AM MAMMOGRAM SCREENING Reviewed 06/03/2012 12:00 AM Bicillin CR, Per 100,000 units [facility]# 51098-192-70 Reviewed 08/01/2012 12:00 AM THER/PROPH/DIAG INJ SC/IM Reviewed 08/01/2012 12:00 AM Decadron, Per 1 Mg [facility]# [address]-27 Reviewed 08/01/2012 12:00 AM Depo-Medrol, Per 80 Mg [facility]#0034-4248-23 Reviewed 11/08/2012 12:00 AM CHYLMD TRACH DNA [...] 07/18/2013 12:00 AM Decadron 8 mg [facility]# [address]-11 Reviewed 07/18/2013 12:00 AM Depo-Medrol 80 mg [facility]#[address]-90 Reviewed 08/04/2013 12:00 AM Bicillin CR, 1.2 million units [facility]# 46007-909-19 Reviewed 12/11/2013 12:00 AM IMMUNOASSAY TUMOR CA [...] 06/01/2014 12:00 AM Decadron 8 mg [facility]# [address]-61 Reviewed 06/01/2014 12:00 AM Depo-Medrol 80 mg [facility]#[address]-03 Reviewed 06/19/2014 12:00 AM US EXAM PELVIC [...] Policy Number Policy Group Number Start Date [facility] [id number] October History of Encounters Visit Date Visit Type Provider 08/27/[address] Allegra Pineda MD 08/21/[address] Allegra Pineda MD 08/06/2015 Office visit 08/06/[address] Allegra Pineda MD 07/31/2015 Office visit Pepe Canote DO 07/15/2015 Office visit Pepe Hannah DO 01/04/2015 Office visit Wicho Lomeli APRN [...] Kulwant Hernandez DO 07/18/2013 Office visit Pepe Hannah DO 07/11/2013 Surgery Kulwant Bouman DO 06/26/2013 Office visit Jared Richey MD 06/23/2013 Surgery Kulwant Bouman DO 06/19/2013 Surgery Kulwant Bouman DO 06/13/2013 Office visit Kulwant Bouman DO 06/09/2013 [facility] DO 03/20/2013 Office visit Jared Richey MD 11/17/2012 Procedures Jared Richey MD 11/08/2012 Office visit Jared Richey MD 08/01/2012 Office visit Shilpa Olson APRN
--- OUTSIDE RECORDS SUMMARY | 2017-07-02 11:46 | XMS REPORT ---
Author Author Pepe Young [facility] Address [address] [place] [phone] Care Team Providers Care Ssds Mk 2 Advanced Operator Name Role Phone Pepe Young PCP Unavailable [...] with the main meal of the day losartan 50 mg oral tablet 05/07/2016 TAKE [...] the morning and evening for 30 days Prevacid 30 mg oral capsule,delayed release(DR/EC) 05/04/2017 05/04/2017 TAKE 1 CAPSULE (30 MG) BY ORAL ROUTE 2 TIMES PER DAY BEFORE MEALS Discontinued Name Start Date Discontinued Date SIG [...] mg) by oral route once daily Acid Animated Cartoons Painter PRN 09/11/2013 Sprintec (28) 0.25-35 mg-mcg oral [...] mg) by oral route every other day jsofuzqv-ufqcjuzic-NU 3.5-10,000-1 mg/mL-unit/mL-% otic solution 12/11/2016 instill 4 drops into affected ear(s) by otic route 3 times per day Problem List Description Status Onset Gastroesophageal Reflux Active Hypertension Active Abnormal uterine bleeding Active 11/13/2012 Menopause ovarian failure Active 06/25/2014 [...] Comments Alcohol Never Tobacco 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 Caffeine Current every day History [...] million units IM [facility]#[id number] Reviewed 07/31/2015 12:00 AM Bicillin CR, 1.2 million units [facility]# 66349-287-80 Reviewed 08/06/2015 12:00 AM US EXAM PELVIC [...] million units IM [facility]#[id number] Reviewed 04/17/2016 12:00 AM Bicillin CR, 1.2 million units [facility]# 78965-154-24 Reviewed 09/29/2016 12:00 AM Decadron 4mg Injection [...] 12:00 AM Bicillin LA, 1.2 million units [facility]# [address]-08 Reviewed 04/23/2017 12:00 AM Bicillin LA, 1.2 million units [facility]# [address]-63 Reviewed 06/03/2012 12:00 AM THER/PROPH/DIAG INJ SC/IM Reviewed 06/03/2012 12:00 AM Bicillin CR, Per 100,000 units [facility]# 24882-059-63 Reviewed 08/01/2012 12:00 AM THER/PROPH/DIAG INJ SC/IM Reviewed 08/01/2012 12:00 AM Decadron, Per 1 Mg [facility]# [address]-09 Reviewed 08/01/2012 12:00 AM Depo-Medrol, Per 80 Mg [facility]#1685-5750-08 Reviewed 11/08/2012 12:00 AM CHYLMD TRACH DNA [...] 8 mg [facility]# [address]-99 Reviewed 07/18/2013 12:00 AM Depo-Medrol 80 mg [facility]#[address]-87 Reviewed 08/04/2013 12:00 AM Bicillin CR, 1.2 million units [facility]# 10486-276-01 Reviewed 12/11/2013 12:00 AM IMMUNOASSAY TUMOR CA [...] Reviewed 06/01/2014 12:00 AM Decadron 8 mg [facility]# [address]-77 Reviewed 06/01/2014 12:00 AM Depo-Medrol 80 mg [facility]#[address]-01 Reviewed 06/19/2014 12:00 AM US EXAM PELVIC [...] Policy Group Number Start Date BCBS [facility] [id number] N/A BCBS [facility] [id number] October History of Encounters Visit Date Visit [...] Cardona MD 02/28/2014 Office visit Shilpa Olson BI CONSULTANT 12/11/2013 Office visit Jared Richey MD 12/07/2013 [...] 06/13/2013 Office visit Kulwant Hernandez DO 06/09/2013 [facility] DO 03/20/2013 Office visit Jared Richey MD 11/17/2012 Procedures Jared Richey MD 11/08/2012 Office visit Jared Richey MD 08/01/2012 Office visit Shilpa Olson APRN
--- OUTSIDE RECORDS SUMMARY | 2017-07-02 11:48 | XMS REPORT ---
Author Author Pepe Young [facility] Address [address] [place] [phone] Care Team Providers Care Area Director Of Home Health Sales Name Role Phone Pepe Young PCP Unavailable Allergies and Adverse Reactions Name Reaction Notes clobetasol rash Plan of Treatment Planned Activity Comments Planned Date Planned Time Plan/Goal Rapid Strep 07/10/2014 12:00 AM Medications Active [...] mg) by oral route every other day Contrave 8-90 mg oral tablet extended release 12/11/2016 03/11/2017 take 2 tablets by oral route 2 times per day in the morning and evening for 30 days mamaihej-uwsrjtazn-PR 3.5-10,000-1 mg/mL-unit/mL-% otic solution 12/11/2016 instill 4 drops into affected ear(s) by otic route 3 times per day hydrochlorothiazide 25 mg oral tablet 02/10/2017 TAKE 1/2 TABLET BY MOUTH DAILY Name [...] mg) by oral route once daily Acid Credit Union Field Examiner PRN 09/11/2013 Sprintec (28) 0.25-35 mg-mcg oral [...] HC BMI BSA BMI Percentile O2 Sat(%) 02/19/2017 2:46:00 PM 118 mmHg 80 mmHg [...] F 241 lbs 68 in 36.6435 kg/m 2.29 m2 Social History Name Description Comments Alcohol Never Tobacco 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 History of Procedures Date Ordered Description Order Status 05/15/2011 12:00 AM COMPLETE CBC W/AUTO DIFF WBC Reviewed 05/15/2011 12:00 AM VITAMIN B-12 Reviewed 05/15/2011 12:00 AM ASSAY OF FERRITIN Reviewed 05/15/2011 12:00 AM ASSAY THYROID STIM HORMONE Reviewed 05/15/2011 12:00 AM ASSAY OF TOTAL THYROXINE Reviewed 05/15/2011 12:00 AM Bicillin CR 1.2 million units IM [facility]#[id number] Reviewed 07/31/2015 12:00 AM Bicillin CR, 1.2 million units [facility]# 97178-092-77 Reviewed 08/06/2015 12:00 AM US EXAM PELVIC [...] Bicillin CR 1.2 million units IM [facility]#[id number] Reviewed 04/17/2016 12:00 AM Bicillin CR, 1.2 million units [facility]# 04840-000-15 Reviewed 09/29/2016 12:00 AM Decadron 4mg Injection Reviewed 09/29/2016 12:00 AM Depo-Medrol 40mg Injection Reviewed 11/20/2016 12:00 AM Bicillin CR Injection 1.2 million units Reviewed 04/01/2012 12:00 AM CYTOPATH C/V THIN LAYER Reviewed 04/04/2012 12:00 AM MAMMOGRAM SCREENING Reviewed 02/19/2017 12:00 AM Decadron 8mg Injection Reviewed 06/03/2012 12:00 AM THER/PROPH/DIAG INJ SC/IM Reviewed 06/03/2012 12:00 AM Bicillin CR, Per 100,000 units [facility]# 66790-089-18 Reviewed 08/01/2012 12:00 AM THER/PROPH/DIAG INJ SC/IM Reviewed 08/01/2012 12:00 AM Decadron, Per 1 Mg [facility]# [address]-48 Reviewed 08/01/2012 12:00 AM Depo-Medrol, Per 80 Mg [facility]#9077-3032-71 Reviewed 11/08/2012 12:00 AM CHYLMD TRACH DNA [...] 07/18/2013 12:00 AM Decadron 8 mg [facility]# [address]-46 Reviewed 07/18/2013 12:00 AM Depo-Medrol 80 mg [facility]#[address]-80 Reviewed 08/04/2013 12:00 AM Bicillin CR, 1.2 million units [facility]# 68816-846-90 Reviewed 12/11/2013 12:00 AM IMMUNOASSAY TUMOR CA [...] 06/01/2014 12:00 AM Decadron 8 mg [facility]# [address]-95 Reviewed 06/01/2014 12:00 AM Depo-Medrol 80 mg [facility]#[address]-73 Reviewed 06/19/2014 12:00 AM US EXAM PELVIC [...] 1:37PM Allergic rhinitis Feb 19 2017 3:32PM Payers Insurance Name Company Name Plan Name Plan Number Policy Number Policy Group Number Start Date BCBS [facility] [id number] N/A BCBS [facility] [id number] October History of Encounters Visit Date Visit [...] Cardona MD 02/28/2014 Office visit Shilpa Olson COMMUNITY CASE MANAGER 12/11/2013 Office visit Jared Richey MD [...] 06/13/2013 Office visit Kulwant Hernandez DO 06/09/2013 [facility] DO 03/20/2013 Office visit Jared Richey MD 11/17/2012 Procedures Jared Richey MD 11/08/2012 Office visit Jared Richey MD 08/01/2012 Office visit Shilpa Olson APRN
--- OUTSIDE RECORDS SUMMARY | 2017-07-02 11:50 | XMS REPORT ---
Author Author Allegra Pineda [facility] Address [address] [place] [phone] Care Team Providers Care Merchandise Stocker Name Role Phone Allegra Pineda PCP Unavailable Allergies and Adverse Reactions Name Reaction Notes clobetasol rash Plan of Treatment Planned Activity Comments Planned Date Planned Time Plan/Goal COMPLETE CBC W/AUTO DIFF WBC 02/10/2016 12:00 AM URINE TEST 02/10/2016 12:00 AM MAMMOGRAM SCREENING 10/02/2011 12:00 AM [...] mg) by oral route once daily Acid Deli Cutter Slicer PRN 09/11/2013 Sprintec (28) 0.25-35 mg-mcg oral [...] Comments Alcohol Never 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 History of Procedures Date Ordered Description Order Status 05/15/2011 12:00 AM COMPLETE CBC W/AUTO DIFF WBC Reviewed 05/15/2011 12:00 AM VITAMIN B-12 Reviewed 05/15/2011 12:00 AM ASSAY OF FERRITIN Reviewed 05/15/2011 12:00 AM ASSAY THYROID STIM HORMONE Reviewed 05/15/2011 12:00 AM ASSAY OF TOTAL THYROXINE Reviewed 05/15/2011 12:00 AM Bicillin CR 1.2 million units IM [facility]#[id number] Reviewed 07/31/2015 12:00 AM Bicillin CR, 1.2 million units [facility]# 18057-591-44 Reviewed 08/06/2015 12:00 AM US EXAM PELVIC [...] Bicillin CR 1.2 million units IM [facility]#22476466949 Reviewed 04/01/2012 12:00 AM CYTOPATH C/V THIN LAYER Reviewed 04/04/2012 12:00 AM MAMMOGRAM SCREENING Reviewed 06/03/2012 12:00 AM Bicillin CR, Per 100,000 units [facility]# 14555-013-98 Reviewed 08/01/2012 12:00 AM THER/PROPH/DIAG INJ SC/IM Reviewed 08/01/2012 12:00 AM Decadron, Per 1 Mg [facility]# [address]-99 Reviewed 08/01/2012 12:00 AM Depo-Medrol, Per 80 Mg [facility]#8067-7587-92 Reviewed 11/08/2012 12:00 AM CHYLMD TRACH DNA [...] 07/18/2013 12:00 AM Decadron 8 mg [facility]# [address]-99 Reviewed 07/18/2013 12:00 AM Depo-Medrol 80 mg [facility]#[address]-04 Reviewed 08/04/2013 12:00 AM Bicillin CR, 1.2 million units [facility]# 15010-764-24 Reviewed 12/11/2013 12:00 AM IMMUNOASSAY TUMOR CA [...] 06/01/2014 12:00 AM Decadron 8 mg [facility]# [address]-54 Reviewed 06/01/2014 12:00 AM Depo-Medrol 80 mg [facility]#[address]-44 Reviewed 06/19/2014 12:00 AM US EXAM PELVIC [...] 1:53PM Postmenopausal bleeding Feb 10 2016 4:01PM Payers Insurance Name Company Name Plan Name Plan Number Policy Number Policy Group Number [id number] October History of Encounters Visit Date Visit Type Provider 02/10/[address] Allegra Pineda MD 08/27/[address] Allegra Pineda MD 08/21/[address] Allegra Pineda MD 08/06/2015 Office visit 08/06/[address] Allegra Pineda MD 07/31/2015 Office visit Pepe Young DO 07/15/2015 Office visit Pepe Hannah DO 01/04/2015 Office visit Wicho Lomeli DCS ENGINEER 12/04/2014 Office visit Kulwant Hernandez DO 10/05/2014 Procedures Kulwant Hernandez DO 09/26/2014 Office visit Nelly Cardona MD 07/10/2014 Office visit Ayla Herrera DCS ENGINEER 06/25/2014 Office visit Jared Richey MD 06/21/2014 Office visit Nelly Cardona MD 06/12/2014 Office visit 06/12/2014 Office visit Jared Richey MD 05/10/2014 Office visit Nelly Cardona MD 02/28/2014 Office visit Shilpa Olson DCS ENGINEER 12/11/2013 Office visit Jared Richey MD [...] 06/13/2013 Office visit Kulwant Hernandez DO 06/09/2013 [facility] DO 03/20/2013 Office visit Jared Richey MD 11/17/2012 Procedures Jared Richey MD 11/08/2012 Office visit Jared Richey MD 08/01/2012 Office visit Shilpa Olson APRN
--- OUTSIDE RECORDS SUMMARY | 2017-07-02 11:52 | XMS REPORT ---
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 History of Procedures Date Ordered Description Order Status 05/15/2011 12:00 AM COMPLETE CBC W/AUTO DIFF WBC Reviewed 05/15/2011 12:00 AM VITAMIN B-12 Reviewed 05/15/2011 12:00 AM ASSAY OF FERRITIN Reviewed 05/15/2011 12:00 AM ASSAY THYROID STIM HORMONE Reviewed 05/15/2011 12:00 AM ASSAY OF TOTAL THYROXINE Reviewed 05/15/2011 12:00 AM Bicillin CR 1.2 million units IM [facility]#[id number] Reviewed 07/31/2015 12:00 AM Bicillin CR, 1.2 million units [facility]# 35066-347-51 Reviewed 08/06/2015 12:00 AM US EXAM PELVIC COMPLETE Returned 08/06/2015 12:00 AM SPECIMEN HANDLING OFFICE-LAB Reviewed 08/06/2015 12:00 AM CYTOPATH C/V THIN LAYER Returned 07/31/2011 12:00 AM MAMMOGRAM SCREENING Reviewed 10/02/2011 12:00 AM Bicillin CR 1.2 million units IM [facility]#[id number] Reviewed 04/01/2012 12:00 AM CYTOPATH C/V THIN LAYER Reviewed 04/04/2012 12:00 AM MAMMOGRAM SCREENING Reviewed 06/03/2012 12:00 AM Bicillin CR, Per 100,000 units [facility]# 80372-928-62 Reviewed 08/01/2012 12:00 AM THER/PROPH/DIAG INJ SC/IM Reviewed 08/01/2012 12:00 AM Decadron, Per 1 Mg [facility]# [address]-44 Reviewed 08/01/2012 12:00 AM Depo-Medrol, Per 80 Mg [facility]#3933-3757-72 Reviewed 11/08/2012 12:00 AM CHYLMD TRACH DNA [...] Reviewed 07/18/2013 12:00 AM Decadron 8 mg [facility]# [address]-96 Reviewed 07/18/2013 12:00 AM Depo-Medrol 80 mg [facility]#[address]-47 Reviewed 08/04/2013 12:00 AM Bicillin CR, 1.2 million units [facility]# 78339-317-28 Reviewed 12/11/2013 12:00 AM IMMUNOASSAY TUMOR CA [...] Returned 06/01/2014 12:00 AM Decadron 8 mg [facility]# [address]-81 Reviewed 06/01/2014 12:00 AM Depo-Medrol 80 mg [facility]#[address]-61 Reviewed 06/19/2014 12:00 AM US EXAM PELVIC [...] Number Policy Group Number Start Date BCBS [facility] [id number] October History of Encounters Visit Date Visit Type Provider 08/27/[address] Allegra Pineda MD 08/21/[address] Allegra Pineda MD 08/06/2015 Office visit 08/06/[address] Allegra Pineda MD 07/31/2015 Office visit Pepe Young DO 07/15/2015 Office visit Pepe Young DO 01/04/2015 Office visit Wicho Lomeli REWORKER 12/04/2014 Office visit Kulwant Bouman DO 10/05/2014 [...] 06/13/2013 Office visit Kulwant Hilluman DO 06/09/2013 [facility] DO 03/20/2013 Office visit Jared Richey MD 11/17/2012 Procedures Jared Richey MD 11/08/2012 Office visit Jared Richey MD 08/01/2012 Office visit Shilpa Olson APRN
--- OUTSIDE RECORDS SUMMARY | 2017-07-02 11:53 | XMS REPORT ---
Author Author Pepe Young [facility] Address [address] [place] [phone] Care Team Providers Care Client Relationship Executive Name Role Phone Pepe Young PCP Unavailable [...] the morning and evening for 30 days cgotvzgp-nzfslxwwc-HS 3.5-10,000-1 mg/mL-unit/mL-% otic solution 12/11/2016 instill 4 drops into affected ear(s) by otic route 3 times per day Name Start Date Expiration [...] mg) by oral route once daily Acid Rn Employee Health PRN 09/11/2013 Sprintec (28) 0.25-35 mg-mcg oral [...] HC BMI BSA BMI Percentile O2 Sat(%) 12/11/2016 1:31:00 PM 124 mmHg 72 mmHg 63 bpm 18 rpm 95.1 F 256 lbs 71 in 35.70 kg/m2 2.41 m2 98 % 11/20/2016 2:24:00 PM 138 mmHg 78 mmHg 64 bpm 20 rpm 97.8 F 256 lbs 69 in 37.8042 kg/m 2.3776 m 100 % 11/11/2016 9:40:00 AM 118 mmHg 70 mmHg 59 bpm 18 rpm 97.2 F 255 lbs 69 in 37.66 kg/m2 2.37 m2 97 % 10/16/2016 2:37:00 PM 128 mmHg 68 mmHg 82 bpm 18 rpm 98.7 F 254 lbs 69 in 37.5089 kg/m 2.3683 m 100 % 09/29/2016 10:21:00 AM 136 mmHg [...] F 243 lbs 68 in 36.9476 kg/m 2.30 m2 01/02/2011 1:53:00 PM 130 mmHg 76 mmHg 72 bpm 18 rpm 98.2 F 240 lbs 68 in 36.49 kg/m2 2.2854 m 11/14/2010 2:27:00 PM 118 mmHg 60 mmHg 70 bpm 18 rpm 97.8 F 240 lbs 68 in 36.4915 kg/m 2.29 m2 10/31/2010 3:17:00 PM 132 mmHg 70 mmHg 70 bpm 18 rpm 98.3 F 240 lbs 68 in 36.49 kg/m2 2.2854 m 10/17/2010 1:34:00 PM 132 mmHg 72 mmHg 70 bpm 18 rpm 98.1 F 241 lbs 68 in 36.6435 kg/m 2.29 m2 Social History Name Description Comments Alcohol Never 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 History of Procedures Date Ordered Description Order Status 05/15/2011 12:00 AM COMPLETE CBC W/AUTO DIFF WBC Reviewed 05/15/2011 12:00 AM VITAMIN B-12 Reviewed 05/15/2011 12:00 AM ASSAY OF FERRITIN Reviewed 05/15/2011 12:00 AM ASSAY THYROID STIM HORMONE Reviewed 05/15/2011 12:00 AM ASSAY OF TOTAL THYROXINE Reviewed 05/15/2011 12:00 AM Bicillin CR 1.2 million units IM [facility]#[id number] Reviewed 07/31/2015 12:00 AM Bicillin CR, 1.2 million units [facility]# 75226-116-67 Reviewed 08/06/2015 12:00 AM US EXAM PELVIC [...] Bicillin CR 1.2 million units IM [facility]#[id number] Reviewed 04/17/2016 12:00 AM Bicillin CR, 1.2 million units [facility]# 43759-218-63 Reviewed 09/29/2016 12:00 AM Decadron 4mg Injection Reviewed 09/29/2016 12:00 AM Depo-Medrol 40mg Injection Reviewed 11/20/2016 12:00 AM Bicillin CR Injection 1.2 million units Reviewed 04/01/2012 12:00 AM CYTOPATH C/V THIN LAYER Reviewed 04/04/2012 12:00 AM MAMMOGRAM SCREENING Reviewed 06/03/2012 12:00 AM THER/PROPH/DIAG INJ SC/IM Reviewed 06/03/2012 12:00 AM Bicillin CR, Per 100,000 units [facility]# 30627-749-16 Reviewed 08/01/2012 12:00 AM THER/PROPH/DIAG INJ SC/IM Reviewed 08/01/2012 12:00 AM Decadron, Per 1 Mg [facility]# [address]-75 Reviewed 08/01/2012 12:00 AM Depo-Medrol, Per 80 Mg [facility]#4104-4145-22 Reviewed 11/08/2012 12:00 AM CHYLMD TRACH DNA [...] 07/18/2013 12:00 AM Decadron 8 mg [facility]# [address]-26 Reviewed 07/18/2013 12:00 AM Depo-Medrol 80 mg [facility]#[address]-64 Reviewed 08/04/2013 12:00 AM Bicillin CR, 1.2 million units [facility]# 72241-704-28 Reviewed 12/11/2013 12:00 AM IMMUNOASSAY TUMOR CA [...] Reviewed 06/01/2014 12:00 AM Decadron 8 mg [facility]# [address]-63 Reviewed 06/01/2014 12:00 AM Depo-Medrol 80 mg [facility]#[address]-61 Reviewed 06/19/2014 12:00 AM US EXAM PELVIC [...] ear, unspecified type Dec 11 2016 1:37PM Payers Insurance Name Company Name Plan Name Plan Number Policy Number Policy Group Number Start Date [employer]BS [facility] [place] [id number] N/A BCBS [facility] [facility] [place] [id number] October History of Encounters Visit Date Visit [...] 06/13/2013 Office visit Kulwant Hilluman DO 06/09/2013 [facility] DO 03/20/2013 Office visit Jared Richey MD 11/17/2012 Procedures Jared Richey MD 11/08/2012 Office visit Jared Richey MD 08/01/2012 Office visit Shilpa Olson APRN
[2017-07-02] MEDS ORDERED: fentaNYL INJECTION 250 MCG/5 ML AMP ONE (11:54)
[2017-07-02] MEDS ORDERED: MIDAZOLAM 2 MG/2 ML (VERSED) VIAL ONE (11:54)
[2017-07-02] MEDS ORDERED: proPOfol 200 MG/20 ML (DIPRIVAN) VIAL IV ONE (11:54)
[2017-07-02] MEDS ORDERED: SEVOFLURANE (ULTANE) 15 ML INHAL SOLN ONE ×5 (11:54→13:52)
--- OUTSIDE RECORDS SUMMARY | 2017-07-02 11:56 | XMS REPORT ---
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#[id number] Reviewed 07/31/2015 12:00 AM Bicillin CR, 1.[address] [facility]# 83046-485-79 Reviewed 08/06/2015 12:00 AM US EXAM PELVIC [...] AM Bicillin CR 1.[address] [facility]#[id number] Reviewed 04/17/2016 12:00 AM Bicillin CR, 1.[address] [facility]# 64814-981-61 Reviewed 09/29/2016 12:00 AM Decadron 4mg Injection Reviewed 09/29/2016 12:00 AM Depo-Medrol 40mg Injection Reviewed 11/20/2016 12:00 AM Bicillin CR Injection 1.2 million units Reviewed 04/01/2012 12:00 AM CYTOPATH C/V THIN LAYER Reviewed 04/04/2012 12:00 AM MAMMOGRAM SCREENING Reviewed 06/03/2012 12:00 AM THER/PROPH/DIAG INJ SC/IM Reviewed 06/03/2012 12:00 AM Bicillin CR, Per 100,[address] [facility]# 57329-855-58 Reviewed 08/01/2012 12:00 AM THER/PROPH/DIAG INJ SC/IM Reviewed 08/01/2012 12:00 AM Decadron, Per [address] [facility]# [address]-76 Reviewed 08/01/2012 12:00 AM Depo-Medrol, Per [address] [facility]#6481-6407-28 Reviewed 11/08/2012 12:00 AM CHYLMD TRACH DNA [...] Reviewed 07/18/2013 12:[address] [facility]# [address]-36 Reviewed 07/18/2013 12:00 AM Depo-Medrol [address] [facility]#[address]-83 Reviewed 08/04/2013 12:00 AM Bicillin CR, 1.[address] [facility]# 22408-022-09 Reviewed 12/11/2013 12:00 AM IMMUNOASSAY TUMOR CA [...] Reviewed 06/01/2014 12:[address] [facility]# [address]-20 Reviewed 06/01/2014 12:00 AM Depo-Medrol [address] [facility]#[address]-50 Reviewed 06/19/2014 12:00 AM US EXAM PELVIC [...] Start Date BCBS Bcbs [facility] [id number] N/A BCBS [facility] [id number] October History of Encounters Visit Date Visit [...] Cardona MD 07/10/2014 Office visit Ayla Herrera MIXED CROP AND LIVESTOCK FARM WORKER 06/25/2014 Office visit Jared Richey MD 06/21/2014 Office visit Nelly Cardona MD 06/12/2014 Office visit 06/12/2014 Office visit Jared Richey MD 05/10/2014 Office visit Nelly Cardona MD 02/28/2014 Office visit Shilpa Olson MIXED CROP AND LIVESTOCK FARM WORKER 12/11/2013 Office visit Jared Richey MD 12/07/2013 [...] 06/13/2013 Office visit Kulwant Hernandez DO 06/09/2013 [facility] DO 03/20/2013 Office visit Jared Richey MD 11/17/2012 Procedures Jared Richey MD 11/08/2012 Office visit Jared Richey MD 08/01/2012 Office visit Shilpa Olson APRN
[2017-07-02] MEDS ORDERED: BUP/EPI 0.5% 1:200,000 (MARCAINE) 10ML VIAL IJ ONE (11:57)
--- OUTSIDE RECORDS SUMMARY | 2017-07-02 11:58 | XMS REPORT ---
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 History of Procedures Date Ordered Description Order Status 05/15/2011 12:00 AM COMPLETE CBC W/AUTO DIFF WBC Reviewed 05/15/2011 12:00 AM VITAMIN B-12 Reviewed 05/15/2011 12:00 AM ASSAY OF FERRITIN Reviewed 05/15/2011 12:00 AM ASSAY THYROID STIM HORMONE Reviewed 05/15/2011 12:00 AM ASSAY OF TOTAL THYROXINE Reviewed 05/15/2011 12:00 AM Bicillin CR 1.2 million units IM [facility]#[id number] Reviewed 07/31/2015 12:00 AM Bicillin CR, 1.2 million units [facility]# 07989-941-26 Reviewed 08/06/2015 12:00 AM US EXAM PELVIC [...] AM Bicillin CR 1.2 million units IM [facility]#[id number] Reviewed 04/17/2016 12:00 AM Bicillin CR, 1.2 million units [facility]# 16855-673-98 Reviewed 09/29/2016 12:00 AM Decadron 4mg Injection Reviewed 09/29/2016 12:00 AM Depo-Medrol 40mg Injection Reviewed 11/20/2016 12:00 AM Bicillin CR Injection 1.2 million units Reviewed 04/01/2012 12:00 AM CYTOPATH C/V THIN LAYER Reviewed 04/04/2012 12:00 AM MAMMOGRAM SCREENING Reviewed 06/03/2012 12:00 AM THER/PROPH/DIAG INJ SC/IM Reviewed 06/03/2012 12:00 AM Bicillin CR, Per 100,000 units [facility]# 07919-308-48 Reviewed 08/01/2012 12:00 AM THER/PROPH/DIAG INJ SC/IM Reviewed 08/01/2012 12:00 AM Decadron, Per 1 Mg [facility]# [address]-35 Reviewed 08/01/2012 12:00 AM Depo-Medrol, Per 80 Mg [facility]#4542-8009-25 Reviewed 11/08/2012 12:00 AM CHYLMD TRACH DNA [...] Reviewed 07/18/2013 12:00 AM Decadron 8 mg [facility]# [address]-98 Reviewed 07/18/2013 12:00 AM Depo-Medrol 80 mg [facility]#[address]-68 Reviewed 08/04/2013 12:00 AM Bicillin CR, 1.2 million units [facility]# 07401-629-92 Reviewed 12/11/2013 12:00 AM IMMUNOASSAY TUMOR CA [...] Reviewed 06/01/2014 12:00 AM Decadron 8 mg [facility]# [address]-56 Reviewed 06/01/2014 12:00 AM Depo-Medrol 80 mg [facility]#[address]-53 Reviewed 06/19/2014 12:00 AM US EXAM PELVIC [...] Group Number Start Date BCBS [facility] [place] [id number] N/A [facility]BS [facility] [place] [id number] October History of Encounters Visit Date Visit [...] 06/13/2013 Office visit Kulwant Hilluman DO 06/09/2013 [facility] DO 03/20/2013 Office visit Jared Richey MD 11/17/2012 Procedures Jared Richey MD 11/08/2012 Office visit Jared Richey MD 08/01/2012 Office visit Shilpa Olson APRN
--- OUTSIDE RECORDS SUMMARY | 2017-07-02 12:00 | XMS REPORT ---
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#[id number] Reviewed 07/31/2015 12:00 AM Bicillin CR, 1.[address] [facility]# 03646-210-04 Reviewed 08/06/2015 12:00 AM US EXAM PELVIC [...] Bicillin CR 1.[address] [facility]#[id number] Reviewed 04/17/2016 12:00 AM Bicillin CR, 1.[address] [facility]# 95410-784-02 Reviewed 09/29/2016 12:00 AM Decadron 4mg Injection Reviewed 09/29/2016 12:00 AM Depo-Medrol 40mg Injection Reviewed 11/20/2016 12:00 AM Bicillin CR Injection 1.2 million units Reviewed 04/01/2012 12:00 AM CYTOPATH C/V THIN LAYER Reviewed 04/04/2012 12:00 AM MAMMOGRAM SCREENING Reviewed 02/19/2017 12:00 AM Decadron 8mg Injection Reviewed 02/19/2017 12:00 AM Depo-Medrol 80mg Injection Reviewed 06/03/2012 12:00 AM THER/PROPH/DIAG INJ SC/IM Reviewed 06/03/2012 12:00 AM Bicillin CR, Per 100,[address] [facility]# 27217-889-42 Reviewed 08/01/2012 12:00 AM THER/PROPH/DIAG INJ SC/IM Reviewed 08/01/2012 12:00 AM Decadron, Per [address] [facility]# [address]-64 Reviewed 08/01/2012 12:00 AM Depo-Medrol, Per [address] [facility]#7393-0096-07 Reviewed 11/08/2012 12:00 AM CHYLMD TRACH DNA [...] 07/18/2013 12:00 [address] [facility]# [address]-35 Reviewed 07/18/2013 12:00 AM Depo-Medrol [address] [facility]#[address]-80 Reviewed 08/04/2013 12:00 AM Bicillin CR, 1.[address] [facility]# 56894-067-29 Reviewed 12/11/2013 12:00 AM IMMUNOASSAY TUMOR CA [...] 06/01/2014 12:00 [address] [facility]# [address]-81 Reviewed 06/01/2014 12:00 AM Depo-Medrol [address] [facility]#[address]-03 Reviewed 06/19/2014 12:00 AM US EXAM PELVIC [...] Group Number Start Date BCBS [employer] [place] [id number] N/A BCBS [employer] [place] [id number] October History of Encounters Visit Date Visit [...] Young DO 01/04/2015 Office visit Wicho Lomeli MAST MAKER 12/04/2014 Office visit Kulwant Hernandez DO 10/05/2014 Procedures Kulwant Hernandez DO 09/26/2014 Office visit Nelly Cardona MD 07/10/2014 Office visit Ayla Herrera MAST MAKER 06/25/2014 Office visit Jared Richey MD 06/21/2014 Office visit Nelly Cardona MD 06/12/2014 Office visit 06/12/2014 Office visit Jared Richey MD 05/10/2014 Office visit Nelly Cardona MD 02/28/2014 Office visit Shilpa Olson MAST MAKER 12/11/2013 Office visit Jared Richey MD 12/07/2013 [...] 06/13/2013 Office visit Kulwant Hernandez DO 06/09/2013 [facility] DO 03/20/2013 Office visit Jared Richey MD 11/17/2012 Procedures Jared Richey MD 11/08/2012 Office visit Jared Richey MD 08/01/2012 Office visit Shilpa Olson APRN
[2017-07-02] MEDS: LACTATED RINGERS 1,000 ML IV PRN ×3 (12:01→14:43)
--- OUTSIDE RECORDS SUMMARY | 2017-07-02 12:02 | XMS REPORT ---
Author Author Pepe Young [facility] Address [address] [place] [phone] Care Team Providers Care Ophthalmology Surgical Technician Name Role Phone Pepe Young PCP Unavailable Allergies and Adverse Reactions Name Reaction Notes clobetasol rash Plan of Treatment Planned Activity Comments Planned Date Planned Time Plan/Goal Basic metabolic profile 03/12/2017 12:00 AM Rapid Strep 07/10/2014 12:00 AM Medications Active Name Start Date Estimated Completion Date SIG Comments losartan 50 mg oral tablet 11/07/2013 TAKE [...] with the main meal of the day Symbicort 80-4.5 mcg/actuation inhalation HFA aerosol inhaler [...] times per day as needed for cough losartan 50 mg oral tablet 06/10/2017 TAKE 1 TABLET BY MOUTH EVERY DAY [...] mg) by oral route once daily Acid Product Coordinator PRN 09/11/2013 Sprintec (28) 0.25-35 mg-mcg oral [...] mg) by oral route every other day aaeskzor-zskcfyphp-LJ 3.5-10,000-1 mg/mL-unit/mL-% otic solution 12/11/2016 instill 4 [...] Comments Alcohol Never Tobacco 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 Current every day History of Procedures Date Ordered Description Order Status 05/15/2011 12:00 AM COMPLETE CBC W/AUTO DIFF WBC Reviewed 05/15/2011 12:00 AM VITAMIN B-12 Reviewed 05/15/2011 12:00 AM ASSAY OF FERRITIN Reviewed 05/15/2011 12:00 AM ASSAY THYROID STIM HORMONE Reviewed 05/15/2011 12:00 AM ASSAY OF TOTAL THYROXINE Reviewed 05/15/2011 12:00 AM Bicillin CR 1.2 million units IM [facility]#[id number] Reviewed 07/31/2015 12:00 AM Bicillin CR, 1.2 million units [facility]# 29191-004-69 Reviewed 08/06/2015 12:00 AM US EXAM PELVIC [...] Bicillin CR 1.2 million units IM [facility]#[id number] Reviewed 04/17/2016 12:00 AM Bicillin CR, 1.2 million units [facility]# 94905-781-42 Reviewed 09/29/2016 12:00 AM Decadron 4mg Injection [...] 12:00 AM Bicillin LA, 1.2 million units [facility]# [address]-12 Reviewed 04/23/2017 12:00 AM Bicillin LA, 1.2 million units [facility]# [address]-51 Reviewed 06/03/2012 12:00 AM THER/PROPH/DIAG INJ SC/IM Reviewed 06/03/2012 12:00 AM Bicillin CR, Per 100,000 units [facility]# 57591-496-80 Reviewed 08/01/2012 12:00 AM THER/PROPH/DIAG INJ SC/IM Reviewed 08/01/2012 12:00 AM Decadron, Per 1 Mg [facility]# [address]-64 Reviewed 08/01/2012 12:00 AM Depo-Medrol, Per 80 Mg [facility]#3568-3076-29 Reviewed 11/08/2012 12:00 AM CHYLMD TRACH DNA [...] 07/18/2013 12:00 AM Decadron 8 mg [facility]# [address]-50 Reviewed 07/18/2013 12:00 AM Depo-Medrol 80 mg [facility]#[address]-15 Reviewed 08/04/2013 12:00 AM Bicillin CR, 1.2 million units [facility]# 09747-267-48 Reviewed 12/11/2013 12:00 AM IMMUNOASSAY TUMOR CA [...] 06/01/2014 12:00 AM Decadron 8 mg [facility]# [address]-59 Reviewed 06/01/2014 12:00 AM Depo-Medrol 80 mg [facility]#[address]-12 Reviewed 06/19/2014 12:00 AM US EXAM PELVIC [...] Group Number Start Date BCBS [employer] [place] [id number] N/A [employer]BS [employer] [facility] [place] [id number] October History of Encounters Visit Date Visit Type Provider 02/23/2017 Office visit Pepe Young DO 11/11/2016 Office visit Pepe Young DO 09/29/2016 Office visit Pepe Yonug DO 03/03/[address] Allegra Pineda MD [...] Cardona MD 07/10/2014 Office visit Ayla Herrera GROUP PROGRAM MANAGER 06/25/2014 Office visit Jared Richey MD 06/21/2014 Office visit Nelly Cardona MD 06/12/2014 Office visit 06/12/2014 Office visit Jared Richey MD 05/10/2014 Office visit Nelly Cardona MD 02/28/2014 Office visit Shilpa Olson GROUP PROGRAM MANAGER 12/11/2013 Office visit Jared Richey MD [...] 06/13/2013 Office visit Kulwant Hernandez DO 06/09/2013 [facility] DO 03/20/2013 Office visit Jared Richey MD 11/17/2012 Procedures Jared Richey MD 11/08/2012 Office visit Jared Richey MD 08/01/2012 Office visit Shilpa Olson APRN
--- OUTSIDE RECORDS SUMMARY | 2017-07-02 12:04 | XMS REPORT ---
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 every day History [...] 1.2 million units IM [facility]#[id number] Reviewed 07/31/2015 12:00 AM Bicillin CR, 1.2 million units [facility]# 79441-581-90 Reviewed 08/06/2015 12:00 AM US EXAM PELVIC [...] 1.2 million units IM [facility]#[id number] Reviewed 04/17/2016 12:00 AM Bicillin CR, 1.2 million units [facility]# 67833-109-32 Reviewed 04/01/2012 12:00 AM CYTOPATH C/V THIN LAYER Reviewed 04/04/2012 12:00 AM MAMMOGRAM SCREENING Reviewed 06/03/2012 12:00 AM Bicillin CR, Per 100,000 units [facility]# 31788-523-38 Reviewed 08/01/2012 12:00 AM THER/PROPH/DIAG INJ SC/IM Reviewed 08/01/2012 12:00 AM Decadron, Per 1 Mg [facility]# [address]-04 Reviewed 08/01/2012 12:00 AM Depo-Medrol, Per 80 Mg [facility]#2469-2389-81 Reviewed 11/08/2012 12:00 AM CHYLMD TRACH DNA [...] AM Decadron 8 mg [facility]# [address]-41 Reviewed 07/18/2013 12:00 AM Depo-Medrol 80 mg [facility]#[address]-55 Reviewed 08/04/2013 12:00 AM Bicillin CR, 1.2 million units [facility]# 75961-168-56 Reviewed 12/11/2013 12:00 AM IMMUNOASSAY TUMOR CA [...] AM Decadron 8 mg [facility]# [address]-46 Reviewed 06/01/2014 12:00 AM Depo-Medrol 80 mg [facility]#[address]-72 Reviewed 06/19/2014 12:00 AM US EXAM PELVIC [...] 35.0-39.9 without comorbidity) May 22 2016 1:51PM Payers Insurance Name Company Name Plan Name Plan Number Policy Number Policy Group Number Start Date BCBS [facility] [id number] October History of Encounters Visit Date Visit [...] Hannah DO 01/04/2015 Office visit Wicho Lomeli RESIDENTIAL DOOR INSTALLER 12/04/2014 Office visit Kulwant Bouman DO 10/05/2014 Procedures Kulwant Bouman DO 09/26/2014 Office visit Nelly Cardona MD 07/10/2014 Office visit Ayla Herrera RESIDENTIAL DOOR INSTALLER 06/25/2014 Office visit Jared Richey MD 06/21/2014 Office visit Nelly Cardona MD 06/12/2014 Office visit 06/12/2014 Office visit Jared Richey MD 05/10/2014 Office visit Nelly Cardona MD 02/28/2014 Office visit Shilpa Olson RESIDENTIAL DOOR INSTALLER 12/11/2013 Office visit Jared Richey MD 12/07/2013 Office visit Wicho Lomeli RESIDENTIAL DOOR INSTALLER 10/24/2013 Office visit Pepe Hannah DO 09/11/2013 Office visit Jared Richey MD 07/25/2013 Office visit Kulwant Bouman DO 07/18/2013 Office visit Pepe Hannah DO 07/11/2013 Surgery Kulwant Bouman DO 06/26/2013 Office visit Jared Richey MD 06/23/2013 Surgery Kulwant Bouman DO 06/19/2013 Surgery Kulwant Bouman DO 06/13/2013 Office visit Kulwant Bouman DO 06/09/2013 [facility] DO 03/20/2013 Office visit Jared Richey MD 11/17/2012 Procedures Jared Richey MD 11/08/2012 Office visit Jared Richey MD 08/01/2012 Office visit Shilpa Olson RESIDENTIAL DOOR INSTALLER
--- OUTSIDE RECORDS SUMMARY | 2017-07-02 12:05 | XMS REPORT ---
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 every day History of Procedures Date Ordered Description Order Status 05/15/2011 12:00 AM COMPLETE CBC W/AUTO DIFF WBC Reviewed 05/15/2011 12:00 AM VITAMIN B-12 Reviewed 05/15/2011 12:00 AM ASSAY OF FERRITIN Reviewed 05/15/2011 12:00 AM ASSAY THYROID STIM HORMONE Reviewed 05/15/2011 12:00 AM ASSAY OF TOTAL THYROXINE Reviewed 05/15/2011 12:00 AM Bicillin CR 1.2 million units IM [facility]#[id number] Reviewed 07/31/2015 12:00 AM Bicillin CR, 1.2 million units [facility]# 52980-654-04 Reviewed 08/06/2015 12:00 AM US EXAM PELVIC [...] AM Bicillin CR 1.2 million units IM [facility]#[id number] Reviewed 04/01/2012 12:00 AM CYTOPATH C/V THIN LAYER Reviewed 04/04/2012 12:00 AM MAMMOGRAM SCREENING Reviewed 06/03/2012 12:00 AM Bicillin CR, Per 100,000 units [facility]# 49835-769-10 Reviewed 08/01/2012 12:00 AM THER/PROPH/DIAG INJ SC/IM Reviewed 08/01/2012 12:00 AM Decadron, Per 1 Mg [facility]# [address]-93 Reviewed 08/01/2012 12:00 AM Depo-Medrol, Per 80 Mg [facility]#2806-1972-52 Reviewed 11/08/2012 12:00 AM CHYLMD TRACH DNA [...] Reviewed 07/18/2013 12:00 AM Decadron 8 mg [facility]# [address]-49 Reviewed 07/18/2013 12:00 AM Depo-Medrol 80 mg [facility]#[address]-50 Reviewed 08/04/2013 12:00 AM Bicillin CR, 1.2 million units [facility]# 43985-799-00 Reviewed 12/11/2013 12:00 AM IMMUNOASSAY TUMOR CA [...] Returned 06/01/2014 12:00 AM Decadron 8 mg [facility]# [address]-83 Reviewed 06/01/2014 12:00 AM Depo-Medrol 80 mg [facility]#[address]-11 Reviewed 06/19/2014 12:00 AM US EXAM PELVIC [...] Number Policy Group Number [facility] Date [id number] October History of Encounters Visit Date Visit [...] Cardona MD 07/10/2014 Office visit Ayla Herrera SECTION GANG 06/25/2014 Office visit Jared Richey MD 06/21/2014 Office visit Nelly Cardona MD 06/12/2014 Office visit 06/12/2014 Office visit Jared Richey MD 05/10/2014 Office visit Nelly Cardona MD 02/28/2014 Office visit Shilpa Olson SECTION GANG 12/11/2013 Office visit Jared Richey MD 12/07/2013 Office visit Wicho Lomeli SECTION GANG 10/24/2013 Office visit Pepe Young DO 09/11/2013 Office visit Jared Richey MD 07/25/2013 Office visit Kulwant Hernandez DO 07/18/2013 Office visit Pepe Young DO 07/11/2013 Surgery Kulwantcolin Hernandez DO 06/26/2013 Office visit Jared Richey MD 06/23/2013 Surgery Kulwant Hernandez DO 06/19/2013 Surgery Kulwant David DO 06/13/2013 Office visit Kulwant Hernandez DO 06/09/2013 [facility] DO 03/20/2013 Office visit Jared Richey MD 11/17/2012 Procedures Jared Richey MD 11/08/2012 Office visit Jared Richey MD 08/01/2012 Office visit Shilpa Olson SECTION GANG
--- OUTSIDE RECORDS SUMMARY | 2017-07-02 12:07 | XMS REPORT ---
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 History [...] 1.2 million units IM [facility]#[id number] Reviewed 07/31/2015 12:00 AM Bicillin CR, 1.2 million units [facility]# 16578-870-75 Reviewed 08/06/2015 12:00 AM US EXAM PELVIC [...] 1.2 million units IM [facility]#[id number] Reviewed 04/01/2012 12:00 AM CYTOPATH C/V THIN LAYER Reviewed 04/04/2012 12:00 AM MAMMOGRAM SCREENING Reviewed 06/03/2012 12:00 AM Bicillin CR, Per 100,000 units [facility]# 44897-577-93 Reviewed 08/01/2012 12:00 AM THER/PROPH/DIAG INJ SC/IM Reviewed 08/01/2012 12:00 AM Decadron, Per 1 Mg [facility]# [address]-22 Reviewed 08/01/2012 12:00 AM Depo-Medrol, Per 80 Mg [facility]#9527-3882-85 Reviewed 11/08/2012 12:00 AM CHYLMD TRACH DNA [...] AM Decadron 8 mg [facility]# [address]-66 Reviewed 07/18/2013 12:00 AM Depo-Medrol 80 mg [facility]#[address]-08 Reviewed 08/04/2013 12:00 AM Bicillin CR, 1.2 million units [facility]# 95473-591-25 Reviewed 12/11/2013 12:00 AM IMMUNOASSAY TUMOR CA [...] AM Decadron 8 mg [facility]# [address]-50 Reviewed 06/01/2014 12:00 AM Depo-Medrol 80 mg [facility]#[address]-49 Reviewed 06/19/2014 12:00 AM US EXAM PELVIC [...] Group Number Start Date BCBS Bcbs [facility] [id number] October History of Encounters Visit Date Visit [...] Young DO 01/04/2015 Office visit Wicho Lomeli HARNESS PLACER 12/04/2014 Office visit Kulwant Hernandez DO 10/05/2014 Procedures Kulwant Hernandez DO 09/26/2014 Office visit Nelly Cardona MD 07/10/2014 Office visit Ayla Herrera HARNESS PLACER 06/25/2014 Office visit Jared Richey MD 06/21/2014 Office visit Nelly Cardona MD 06/12/2014 Office visit 06/12/2014 Office visit Jared Richey MD 05/10/2014 Office visit Nelly Cardona MD 02/28/2014 Office visit Shilpaelfego Olson APRN 12/11/2013 Office visit Jared Richey MD 12/07/2013 Office visit Wicho Lomeli HARNESS PLACER 10/24/2013 Office visit Pepe Young DO 09/11/2013 Office visit Jared Richey MD 07/25/2013 Office visit Kulwant Hernandez DO 07/18/2013 Office visit Pepe Young DO 07/11/2013 Surgery Kulwant Hernandez DO 06/26/2013 Office visit Jared Richey MD 06/23/2013 Surgery Kulwant David DO 06/19/2013 Surgery Kulwant Hernandez DO 06/13/2013 Office visit Kulwant Hernandez DO 06/09/2013 [facility] DO 03/20/2013 Office visit Jared Richey MD 11/17/2012 Procedures Jared Richey MD 11/08/2012 Office visit Jared Richey MD 08/01/2012 Office visit Shilpa Olson APRN
--- OUTSIDE RECORDS SUMMARY | 2017-07-02 12:09 | XMS REPORT ---
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 History of Procedures Date Ordered Description Order Status 05/15/2011 12:00 AM COMPLETE CBC W/AUTO DIFF WBC Reviewed 05/15/2011 12:00 AM VITAMIN B-12 Reviewed 05/15/2011 12:00 AM ASSAY OF FERRITIN Reviewed 05/15/2011 12:00 AM ASSAY THYROID STIM HORMONE Reviewed 05/15/2011 12:00 AM ASSAY OF TOTAL THYROXINE Reviewed 05/15/2011 12:00 AM Bicillin CR 1.2 million units IM [facility]#[id number] Reviewed 07/31/2011 12:00 AM MAMMOGRAM SCREENING Reviewed 10/02/2011 12:00 AM Bicillin CR 1.2 million units IM [facility]#08460444835 Reviewed 04/01/2012 12:00 AM CYTOPATH C/V THIN LAYER Reviewed 04/04/2012 12:00 AM MAMMOGRAM SCREENING Reviewed 06/03/2012 12:00 AM Bicillin CR, Per 100,000 units [facility]# 71179-294-76 Reviewed 08/01/2012 12:00 AM THER/PROPH/DIAG INJ SC/IM Reviewed 08/01/2012 12:00 AM Decadron, Per 1 Mg [facility]# [address]-88 Reviewed 08/01/2012 12:00 AM Depo-Medrol, Per 80 Mg [facility]#6070-9496-87 Reviewed 11/08/2012 12:00 AM CHYLMD TRACH DNA [...] 07/18/2013 12:00 AM Decadron 8 mg [facility]# [address]-60 Reviewed 07/18/2013 12:00 AM Depo-Medrol 80 mg [facility]#[address]-07 Reviewed 08/04/2013 12:00 AM Bicillin CR, 1.2 million units [facility]# 51821-968-38 Reviewed 12/11/2013 12:00 AM IMMUNOASSAY TUMOR CA [...] Returned 06/01/2014 12:00 AM Decadron 8 mg [facility]# [address]-83 Reviewed 06/01/2014 12:00 AM Depo-Medrol 80 mg [facility]#[address]-32 Reviewed 06/19/2014 12:00 AM US EXAM PELVIC [...] Number Policy Group Number Start Date Bcbs [facility] [id number] October History of Encounters Visit Date Visit [...] 06/13/2013 Office visit Kulwant Hernandez DO 06/09/2013 [facility] DO 03/20/2013 Office visit Jared Richey MD 11/17/2012 Procedures Jared Richey MD 11/08/2012 Office visit Jared Richey MD 08/01/2012 Office visit Shilpa Olson APRN
--- OUTSIDE RECORDS SUMMARY | 2017-07-02 12:10 | XMS REPORT ---
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 Current every day History of Procedures Date Ordered Description Order Status 05/15/2011 12:00 AM COMPLETE CBC W/AUTO DIFF WBC Reviewed 05/15/2011 12:00 AM VITAMIN B-12 Reviewed 05/15/2011 12:00 AM ASSAY OF FERRITIN Reviewed 05/15/2011 12:00 AM ASSAY THYROID STIM HORMONE Reviewed 05/15/2011 12:00 AM ASSAY OF TOTAL THYROXINE Reviewed 05/15/2011 12:00 AM Bicillin CR 1.2 million units IM [facility]#[id number] Reviewed 07/31/2015 12:00 AM Bicillin CR, 1.2 million units [facility]# 34994-789-14 Reviewed 08/06/2015 12:00 AM US EXAM PELVIC [...] Bicillin CR 1.2 million units IM [facility]#71068249488 Reviewed 04/01/2012 12:00 AM CYTOPATH C/V THIN LAYER Reviewed 04/04/2012 12:00 AM MAMMOGRAM SCREENING Reviewed 06/03/2012 12:00 AM Bicillin CR, Per 100,000 units [facility]# 66092-097-30 Reviewed 08/01/2012 12:00 AM THER/PROPH/DIAG INJ SC/IM Reviewed 08/01/2012 12:00 AM Decadron, Per 1 Mg [facility]# [address]-23 Reviewed 08/01/2012 12:00 AM Depo-Medrol, Per 80 Mg [facility]#1597-9139-67 Reviewed 11/08/2012 12:00 AM CHYLMD TRACH DNA [...] 07/18/2013 12:00 AM Decadron 8 mg [facility]# [address]-88 Reviewed 07/18/2013 12:00 AM Depo-Medrol 80 mg [facility]#[address]-36 Reviewed 08/04/2013 12:00 AM Bicillin CR, 1.2 million units [facility]# 11138-593-53 Reviewed 12/11/2013 12:00 AM IMMUNOASSAY TUMOR CA [...] 06/01/2014 12:00 AM Decadron 8 mg [facility]# [address]-04 Reviewed 06/01/2014 12:00 AM Depo-Medrol 80 mg [facility]#[address]-48 Reviewed 06/19/2014 12:00 AM US EXAM PELVIC [...] Number Policy Group Number Start Date [id number] October History of Encounters Visit Date Visit Type Provider 02/10/[address] Allegra Pineda MD 08/27/[address] Allegra Pineda MD 08/21/[address] Allegra Pineda MD 08/06/2015 Office visit 08/06/[address] Allegra Pineda MD 07/31/2015 Office visit Pepe Young DO 07/15/2015 Office visit Pepe Hannah DO 01/04/2015 Office visit Wicho Lomeli MIRROR POLISHER 12/04/2014 Office visit Kulwant Hernandez DO 10/05/2014 Procedures Kulwant Hernandez DO 09/26/2014 Office visit Nelly Cardona MD 07/10/2014 Office visit Ayla Herrera MIRROR POLISHER 06/25/2014 Office visit Jared Richey MD 06/21/2014 Office visit Nelly Cardona MD 06/12/2014 Office visit 06/12/2014 Office visit Jared Richey MD 05/10/2014 Office visit Nelly Cardona MD 02/28/2014 Office visit Shilpa Olson MIRROR POLISHER 12/11/2013 Office visit Jared Richey MD 12/07/2013 Office visit Wicho Lomeli APRN 10/24/2013 Office visit Peep Young DO 09/11/2013 Office visit Jared Richey [...]
--- OUTSIDE RECORDS SUMMARY | 2017-07-02 12:13 | XMS REPORT ---
Author Author Pepe Young [facility] Address [address] [place] [id number] Care Team Providers Care Sports Nutritionist Name Role Phone Pepe Young PCP Unavailable [...] per day in the morning and evening Contrave 8-90 mg oral tablet extended release 12/11/2016 03/11/2017 take 2 tablets by oral route 2 times per day in the morning and evening for 30 days iurbisvh-mpucjxqcv-GL 3.5-10,000-1 mg/mL-unit/mL-% otic solution 12/11/2016 instill 4 drops into affected ear(s) by otic route 3 times per day hydrochlorothiazide 25 mg oral tablet 02/10/2017 TAKE 1/2 TABLET BY MOUTH DAILY montelukast 10 mg oral tablet 02/23/2017 08/22/2017 take 1 tablet (10 mg) by oral route once daily in the evening for 30 days Name Start Date Expiration [...] mg) by oral route once daily Acid Oil Recovery Unit Operator PRN 09/11/2013 Sprintec (28) 0.25-35 mg-mcg oral [...] mg) by oral route every other day Problem List Description Status Onset Gastroesophageal Reflux Active Hypertension Active Abnormal Uterine Bleeding Active 11/13/2012 Breast Cancer Active 06/23/2013 Menopause ovarian failure Active 06/25/2014 Vitiligo Active 09/26/2014 Breast cancer Active 10/07/2014 Abnormal Breast Ultrasound Active 12/04/2014 Vital Signs Date Time BP-Sys(mm[Hg] BP-Ellen(mm[Hg]) HR(bpm) RR(rpm) Temp WT HT HC BMI BSA BMI Percentile O2 Sat(%) 02/23/2017 8:35:00 AM 140 mmHg 70 mmHg 59 bpm 20 rpm 97.9 F 256 lbs 69 in 37.80 kg/m2 2.38 m2 97 % 02/19/2017 2:46:00 PM 118 mmHg 80 mmHg 60 bpm 16 rpm 95.6 F 256 lbs 71 in 35.7044 kg/m 2.4118 m 97 % 12/11/2016 1:31:00 PM 124 mmHg [...] Comments Alcohol Never 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 every day History of Procedures Date Ordered Description Order Status 05/15/2011 12:00 AM COMPLETE CBC W/AUTO DIFF WBC Reviewed 05/15/2011 12:00 AM VITAMIN B-12 Reviewed 05/15/2011 12:00 AM ASSAY OF FERRITIN Reviewed 05/15/2011 12:00 AM ASSAY THYROID STIM HORMONE Reviewed 05/15/2011 12:00 AM ASSAY OF TOTAL THYROXINE Reviewed 05/15/2011 12:00 AM Bicillin CR 1.2 million units IM [facility]#[id number] Reviewed 07/31/2015 12:00 AM Bicillin CR, 1.2 million units [facility]# 30108-436-22 Reviewed 08/06/2015 12:00 AM US EXAM PELVIC [...] Bicillin CR 1.2 million units IM [facility]#35103508465 Reviewed 04/17/2016 12:00 AM Bicillin CR, 1.2 million units [facility]# 23829-773-94 Reviewed 09/29/2016 12:00 AM Decadron 4mg Injection [...] AM Bicillin CR, Per 100,000 units [facility]# 88172-248-00 Reviewed 08/01/2012 12:00 AM THER/PROPH/DIAG INJ SC/IM Reviewed 08/01/2012 12:00 AM Decadron, Per 1 Mg [facility]# [address]-18 Reviewed 08/01/2012 12:00 AM Depo-Medrol, Per 80 Mg [facility]#4605-9359-42 Reviewed 11/08/2012 12:00 AM CHYLMD TRACH DNA [...] 07/18/2013 12:00 AM Decadron 8 mg [facility]# [address]-76 Reviewed 07/18/2013 12:00 AM Depo-Medrol 80 mg [facility]#[address]-13 Reviewed 08/04/2013 12:00 AM Bicillin CR, 1.2 million units [facility]# 51663-969-81 Reviewed 12/11/2013 12:00 AM IMMUNOASSAY TUMOR CA [...] 06/01/2014 12:00 AM Decadron 8 mg [facility]# [address]-43 Reviewed 06/01/2014 12:00 AM Depo-Medrol 80 mg [facility]#[address]-36 Reviewed 06/19/2014 12:00 AM US EXAM PELVIC [...] 2:47PM Acute bronchitis Feb 23 2017 8:38AM Payers Insurance Name Company Name Plan Name Plan Number Policy Number Policy Group Number Start Date BCBS Bcbs [facility] [id number] N/A BCBS [facility] [id number] October History of Encounters Visit Date Visit [...] Cardona MD 07/10/2014 Office visit Ayla Herrera INTERNATIONAL TRADE COMPLIANCE MANAGER 06/25/2014 Office visit Jared Richey MD 06/21/2014 Office visit Nelly Cardona MD 06/12/2014 Office visit 06/12/2014 Office visit Jared Richey MD 05/10/2014 Office visit Nelly Cardona MD 02/28/2014 Office visit Shilpa Olson INTERNATIONAL TRADE COMPLIANCE MANAGER 12/11/2013 Office visit Jared Richey MD 12/07/2013 Office visit Wicho Lomeli INTERNATIONAL TRADE COMPLIANCE MANAGER 10/24/2013 Office visit Pepe Young DO 09/11/2013 Office visit Jared Richey MD 07/25/2013 Office visit Kulwant Hernandez DO 07/18/2013 Office visit Pepe Young DO 07/11/2013 Surgery Kulwant David DO 06/26/2013 Office visit Jared Richey MD 06/23/2013 Surgery Kulwant David DO 06/19/2013 Surgery Kulwant Hilluman DO 06/13/2013 Office visit Kulwant Hernandez DO 06/09/2013 [facility] DO 03/20/2013 Office visit Jared Richey MD 11/17/2012 Procedures Jared Richey MD 11/08/2012 Office visit Jared Richey MD 08/01/2012 Office visit Shilpa Olson APRN
--- OUTSIDE RECORDS SUMMARY | 2017-07-02 12:14 | XMS REPORT ---
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 History of Procedures Date Ordered Description Order Status 05/15/2011 12:00 AM COMPLETE CBC W/AUTO DIFF WBC Reviewed 05/15/2011 12:00 AM VITAMIN B-12 Reviewed 05/15/2011 12:00 AM ASSAY OF FERRITIN Reviewed 05/15/2011 12:00 AM ASSAY THYROID STIM HORMONE Reviewed 05/15/2011 12:00 AM ASSAY OF TOTAL THYROXINE Reviewed 05/15/2011 12:00 AM Bicillin CR 1.2 million units IM [facility]#[id number] Reviewed 07/31/2011 12:00 AM MAMMOGRAM SCREENING Reviewed 10/02/2011 12:00 AM Bicillin CR 1.2 million units IM [facility]#30083161130 Reviewed 04/01/2012 12:00 AM CYTOPATH C/V THIN LAYER Reviewed 04/04/2012 12:00 AM MAMMOGRAM SCREENING Reviewed 06/03/2012 12:00 AM Bicillin CR, Per 100,000 units [facility]# 87594-173-38 Reviewed 08/01/2012 12:00 AM THER/PROPH/DIAG INJ SC/IM Reviewed 08/01/2012 12:00 AM Decadron, Per 1 Mg [facility]# [address]-93 Reviewed 08/01/2012 12:00 AM Depo-Medrol, Per 80 Mg [facility]#0485-5625-79 Reviewed 11/08/2012 12:00 AM CHYLMD TRACH DNA [...] 07/18/2013 12:00 AM Decadron 8 mg [facility]# [address]-17 Reviewed 07/18/2013 12:00 AM Depo-Medrol 80 mg [facility]#[address]-64 Reviewed 08/04/2013 12:00 AM Bicillin CR, 1.2 million units [facility]# 27077-441-28 Reviewed 12/11/2013 12:00 AM IMMUNOASSAY TUMOR CA [...] 06/01/2014 12:00 AM Decadron 8 mg [facility]# [address]-67 Reviewed 06/01/2014 12:00 AM Depo-Medrol 80 mg [facility]#[address]-82 Reviewed 06/19/2014 12:00 AM US EXAM PELVIC [...] Policy Number Policy Group Number [id number] October History of Encounters Visit Date Visit Type Provider 01/04/2015 Office visit Wicho Lomeli CAR PILOT 12/04/2014 Office visit Kulwant Hernandez DO 10/05/2014 Procedures Kulwant Hernandez DO 09/26/2014 Office visit Nelly Cardona MD 07/10/2014 Office visit Ayla Herrera CAR PILOT 06/25/2014 Office visit Jared Richey MD 06/21/2014 Office visit Nelly Cardnoa MD 06/12/2014 Office visit Jared Richey MD [...] 06/13/2013 Office visit Kulwant Hernandez DO 06/09/2013 [facility] DO 03/20/2013 Office visit Jared Richey MD 11/17/2012 Procedures Jared Richey MD 11/08/2012 Office visit Jared Richey MD 08/01/2012 Office visit Shilpa Olson APRN
--- OUTSIDE RECORDS SUMMARY | 2017-07-02 12:16 | XMS REPORT ---
Author Author [facility] Address [address] [place], [place] [address] Care Team Providers Care Freight Trucker Name Role Phone PCP Unavailable Allergies and [...] every 12 hours as needed for cough Name Start Date [...] times a day as needed Flonase Nasal [place], Suspension 50 mcg/actuation 08/01/2012 10/07/2012 inhale 1 [...] mg) by oral route once daily Acid Entry Level Marketing Assistant PRN 09/11/2013 Sprintec (28) oral tablet 0.25-35 [...] HC BMI BSA BMI Percentile O2 Sat(%) 01/11/2015 2:08:00 PM 134 mmHg 78 mmHg [...] m Social History Name Description Comments Alcohol Tobacco 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 History of Procedures Date [...] 2:38PM Bronchitis, Acute Jan 11 2015 2:10PM Payers Insurance Name Company Name Plan Name Plan Number Policy Number Policy Group Number Start Date [facility] [id number] October History of Encounters Visit Date Visit Type Provider 01/04/2015 Office visit Wicho Lomeli REPAIRER WOOD FURNITURE 12/04/2014 Office visit Kulwant Hernandez DO 10/05/2014 Procedures Kulwant Hernandez DO 09/26/2014 Office visit Nelly Cardona MD 07/10/2014 Office visit Ayla Herrera REPAIRER WOOD FURNITURE 06/25/2014 Office visit Jared Richey MD 06/21/2014 Office visit Nelly Cardona MD 06/12/2014 Office visit Jared Richey MD 05/10/2014 Office visit Nelly Cardona MD 02/28/2014 Office visit Shilpa Olson REPAIRER WOOD FURNITURE 12/11/2013 Office visit Jared Richey MD 12/07/2013 Office visit Wicho Lomeli REPAIRER WOOD FURNITURE 10/24/2013 Office visit Pepe Young DO 09/11/2013 Office visit Jared Richey MD 07/25/2013 Office visit Kulwant Hernandez DO 07/18/2013 Office visit Pepe Young DO 07/11/2013 Surgery Kulwant Sergiojulia DO 06/26/2013 Office visit Jared Richey MD 06/23/2013 Surgery Kulwant David DO 06/19/2013 Surgery Kulwant David DO 06/13/2013 Office visit Kulwant Hernandez DO 06/09/2013 [facility] DO 03/20/2013 Office visit Jared Richey MD 11/17/2012 Procedures Jared Richey MD 11/08/2012 Office visit Jared Richey MD 08/01/2012 Office visit Shilpa Olson APRN
[2017-07-02] MEDS ORDERED: ROCURONIUM 50 MG/5 ML (ZEMURON) VIAL IV ONE (12:17)
[2017-07-02] MEDS ORDERED: DEXAMETHASONE 10 MG/ML (DECADRON) 1 ML VIAL ONE (12:18)
[2017-07-02] MEDS ORDERED: ONDANSETRON 4 MG/2 ML (SDV) Z0FRAN ONE (12:18)
--- OUTSIDE RECORDS SUMMARY | 2017-07-02 12:18 | XMS REPORT ---
Author Author Pepe Young [facility] Address [address] [place] [id number] Care Team Providers Care Ladle Repairer Name Role Phone Pepe Young PCP Unavailable [...] mg) by oral route once daily Acid Associate Professor Of Philosophy PRN 09/11/2013 Sprintec (28) 0.25-35 mg-mcg oral [...] once daily in the morning before breakfast [facility] entered methylphenidate 10 [...] mg) by oral route every other day ejwgnrlg-dteforxum-MK 3.5-10,000-1 mg/mL-unit/mL-% otic solution 12/11/2016 instill 4 [...] HC BMI BSA BMI Percentile O2 Sat(%) 04/02/2017 2:34:00 PM 136 mmHg 76 mmHg 76 bpm 18 rpm 97.2 F 259 lbs 70 in 37.16 kg/m2 2.41 m2 98 % 03/12/2017 1:49:00 PM 138 mmHg 70 mmHg 50 bpm 18 rpm 97.6 F 256 lbs 69 in 37.8042 kg/m 2.3776 m 100 % 02/23/2017 8:35:00 AM 140 mmHg [...] Comments Alcohol Never 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 History of Procedures Date Ordered Description Order Status 05/15/2011 12:00 AM COMPLETE CBC W/AUTO DIFF WBC Reviewed 05/15/2011 12:00 AM VITAMIN B-12 Reviewed 05/15/2011 12:00 AM ASSAY OF FERRITIN Reviewed 05/15/2011 12:00 AM ASSAY THYROID STIM HORMONE Reviewed 05/15/2011 12:00 AM ASSAY OF TOTAL THYROXINE Reviewed 05/15/2011 12:00 AM Bicillin CR 1.2 million units IM [facility]#[id number] Reviewed 07/31/2015 12:00 AM Bicillin CR, 1.2 million units [facility]# 93291-397-45 Reviewed 08/06/2015 12:00 AM US EXAM PELVIC [...] AM Bicillin CR 1.2 million units IM [facility]#05993452803 Reviewed 04/17/2016 12:00 AM Bicillin CR, 1.2 million units [facility]# 19714-500-90 Reviewed 09/29/2016 12:00 AM Decadron 4mg Injection [...] 12:00 AM Bicillin LA, 1.[address] million [address] [facility]# [address]-26 Reviewed 06/03/2012 12:00 AM THER/PROPH/DIAG INJ SC/IM Reviewed 06/03/2012 12:00 AM Bicillin CR, Per 100,000 units [facility]# 64724-174-23 Reviewed 08/01/2012 12:00 AM THER/PROPH/DIAG INJ SC/IM Reviewed 08/01/2012 12:00 AM Decadron, Per 1 Mg [facility]# [address]-35 Reviewed 08/01/2012 12:00 AM Depo-Medrol, Per 80 Mg [facility]#6654-8859-41 Reviewed 11/08/2012 12:00 AM CHYLMD TRACH DNA [...] Reviewed 07/18/2013 12:00 AM Decadron 8 mg [facility]# [address]-45 Reviewed 07/18/2013 12:00 AM Depo-Medrol 80 mg [facility]#[address]-13 Reviewed 08/04/2013 12:00 AM Bicillin CR, 1.2 million units [facility]# 02670-043-00 Reviewed 12/11/2013 12:00 AM IMMUNOASSAY TUMOR CA [...] Reviewed 06/01/2014 12:00 AM Decadron 8 mg [facility]# [address]-91 Reviewed 06/01/2014 12:00 AM Depo-Medrol 80 mg [facility]#[address]-90 Reviewed 06/19/2014 12:00 AM US EXAM PELVIC [...] 2:37PM Acute pharyngitis Apr 02 2017 2:37PM Payers Insurance Name Company Name Plan Name Plan Number Policy Number Policy Group Number Start Date BCBS [facility]bs [facility] [id number] N[id number] October History of Encounters Visit Date Visit Type Provider 02/23/2017 Office visit Pepe Canote DO 11/11/2016 Office visit Pepe Young DO 09/29/2016 Office visit Pepe Ontiveroshite DO 03/03/[address] Allegra Pineda MD 02/19/[address] Allegra Pineda MD 02/10/[address] Allegra Pineda MD 08/27/[address] Allegra Pineda MD 08/21/[address] Allegra Pineda MD 08/06/2015 Office visit 08/06/[address] Allegra Pinead MD 07/31/2015 Office visit Pepe Hannah DO 07/15/2015 Office visit Pepe Hannah DO 01/04/2015 Office visit Wicho Lomeli APRN 12/04/2014 Office visit Kulwant Hernandez DO 10/05/2014 Procedures Kulwant Hernandez DO 09/26/2014 Office visit Nelly Cardona MD 07/10/2014 Office visit Ayla Herrera SUPERVISOR CLAM BED 06/25/2014 Office visit Jared Richey MD 06/21/2014 Office visit Nelly Cardona MD 06/12/2014 Office visit 06/12/2014 Office visit Jared Richey MD 05/10/2014 Office visit Nelly Cardona MD 02/28/2014 Office visit Shilpa Olson SUPERVISOR CLAM BED 12/11/2013 Office visit Jared Richey MD 12/07/2013 Office visit Wicho Lomeli SUPERVISOR CLAM BED 10/24/2013 Office visit Pepe Young DO 09/11/2013 Office visit Jared Richey MD 07/25/2013 Office visit Kulwant Hernandez DO 07/18/2013 Office visit Pepe Young DO 07/11/2013 Surgery Kulwant Bouman DO 06/26/2013 Office visit Jared Richey MD 06/23/2013 Surgery Kulwant David DO 06/19/2013 Surgery Kulwant Hernandez DO 06/13/2013 Office visit Kulwant Hernandez DO 06/09/2013 [facility] DO 03/20/2013 Office visit Jared Richey MD 11/17/2012 Procedures Jared Richey MD 11/08/2012 Office visit Jared Richey MD 08/01/2012 Office visit Shilpa Olson APRN
--- OUTSIDE RECORDS SUMMARY | 2017-07-02 12:20 | XMS REPORT | Continuity of Care Document ---
Demographics x Preferred Language Unknown Marital Status Unknown Episcopal Affiliation Unknown Race Unknown Ethnic Group Unknown Author Author [facility] Organization [facility] Address Unknown Phone Unavailable Allergies Medications Problems Procedures Results Encounters ACCT No. Visit Date/Time Discharge Status Pt. Type Provider Facility Loc./Unit Complaint [id number] 12/14/2013 15:25:00 12/14/2013 15 :25:00 DIS Outpatient VINAY MUNSON [facility] ARTES [id number] 06/22/2017 11:23:29 06/22/2017 23: 59:59 CLS Outpatient Pepe Young [id number] 02/23/2017 09:23:41 02/23/2017 23: 59:59 CLS Outpatient Pepe Young [id number] 11/11/2016 10:35:25 11/11/2016 23: 59:59 CLS Outpatient Pepe Young [id number] 09/29/2016 11:01:25 09/29/2016 23: 59:59 CLS Outpatient Pepe Young [id number] 03/03/2016 17:47:53 03/03/2016 23: 59:59 CLS Outpatient Allegra Pineda [id number] 02/25/2016 18:20:32 02/25/2016 23: 59:59 CLS Outpatient Allegra Pineda [id number] 02/10/2016 18:09:35 02/10/2016 23: 59:59 CLS Outpatient Allegra Pineda [id number] 08/27/2015 15:47:28 08/27/2015 23: 59:59 CLS Outpatient Allegra Pineda [id number] 08/21/2015 15:56:39 08/21/2015 23: 59:59 CLS Outpatient Allegra Pineda [id number] 08/06/2015 10:00:53 08/06/2015 23: 59:59 CLS Outpatient Allegra Pineda [id number] 07/31/2015 09:20:59 07/31/2015 23: 59:59 CLS Outpatient Pepe Young [id number] 07/15/2015 16:09:35 07/15/2015 23: 59:59 CLS Outpatient Pepe Young [id number] 03/25/2015 21:34:26 03/25/2015 23: 59:59 CLS Outpatient LomeliWicho [id number] 12/04/2014 11:26:15 12/04/2014 23: 59:59 CLS Outpatient Kulwant Hernandez [id number] 09/26/2014 16:16:16 09/26/2014 23: 59:59 CLS Outpatient Nelly Cardona [id number] 07/10/2014 18:27:47 07/10/2014 23: 59:59 CLS Outpatient Javier Sheriedesean Baptiste [id number] 06/25/2014 15:45:32 06/25/2014 23: 59:59 CLS Outpatient Jared Richey [id number] 06/21/2014 15:36:59 06/21/2014 23: 59:59 CLS Outpatient Nelly Cardona [id number] 06/12/2014 16:08:36 06/12/2014 23: 59:59 CLS Outpatient Jared Richey [id number] 05/10/2014 16:14:55 05/10/2014 23: 59:59 CLS Outpatient Nelly Cardona [id number] 02/28/2014 10:21:32 02/28/2014 23: 59:59 CLS Outpatient Shilpa Olson [id number] 12/11/2013 18:17:35 12/11/2013 23: 59:59 CLS Outpatient Jared Richey [id number] 12/07/2013 11:02:48 12/07/2013 23: 59:59 CLS Outpatient Wicho Lomeli [id number] 10/24/2013 16:28:23 10/24/2013 23: 59:59 CLS Outpatient Pepe Young [id number] 09/11/2013 17:48:35 09/11/2013 23: 59:59 CLS Outpatient Jared Richey
--- OUTSIDE RECORDS SUMMARY | 2017-07-02 12:20 | XMS REPORT ---
Author Author Pepe Young [facility] Address [address] [place] [id number] Care Team Providers Care Senior Php Developer Name Role Phone Pepe Young PCP Unavailable [...] EVERY DAY ibuprofen 800 mg oral tablet 06/22/2017 TAKE ONE TABLET BY MOUTH EVERY 6 HOURS NEEDED Name Start Date Expiration Date SIG Comments [...] TAKE (1) TABLET THREE TIMES DAILY DIRECTED. 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 every day History of Procedures Date Ordered Description Order Status 05/15/2011 12:00 AM COMPLETE CBC W/AUTO DIFF WBC Reviewed 05/15/2011 12:00 AM VITAMIN B-12 Reviewed 05/15/2011 12:00 AM ASSAY OF FERRITIN Reviewed 05/15/2011 12:00 AM ASSAY THYROID STIM HORMONE Reviewed 05/15/2011 12:00 AM ASSAY OF TOTAL THYROXINE Reviewed 05/15/2011 12:00 AM Bicillin CR 1.2 million units IM [facility]#[id number] Reviewed 07/31/2015 12:00 AM Bicillin CR, 1.[address] [facility]# 02851-468-59 Reviewed 08/06/2015 12:00 AM US EXAM PELVIC [...] Bicillin CR 1.2 million units IM [facility]#[id number] Reviewed 04/17/2016 12:00 AM Bicillin CR, 1.[address] [facility]# 85325-547-59 Reviewed 09/29/2016 12:00 AM Decadron 4mg Injection [...] AM Bicillin LA, 1.[address] [facility]# [address]-82 Reviewed 04/23/2017 12:00 AM Bicillin LA, 1.[address] [facility]# [address]-61 Reviewed 06/03/2012 12:00 AM THER/PROPH/DIAG INJ SC/IM Reviewed 06/03/2012 12:00 AM Bicillin CR, Per 100,[address] [facility]# 68559-510-62 Reviewed 06/22/2017 12:00 AM Bicillin LA, 1.[address] [facility]# [address]-53 Reviewed 08/01/2012 12:00 AM THER/PROPH/DIAG INJ SC/IM Reviewed 08/01/2012 12:00 AM Decadron, Per [address] [facility]# [address]-20 Reviewed 08/01/2012 12:00 AM Depo-Medrol, Per [address] [facility]#1178-6195-19 Reviewed 11/08/2012 12:00 AM CHYLMD TRACH DNA [...] 07/18/2013 12:00 AM Decadron [address] [facility]# [address]-79 Reviewed 07/18/2013 12:00 AM Depo-Medrol [address] [facility]#[address]-11 Reviewed 08/04/2013 12:00 AM Bicillin CR, 1.[address] [facility]# 03690-276-52 Reviewed 12/11/2013 12:00 AM IMMUNOASSAY TUMOR CA [...] Reviewed 06/01/2014 12:00 AM Decadron [address] [facility]# [address]-62 Reviewed 06/01/2014 12:00 AM Depo-Medrol [address] [facility]#[address]-97 Reviewed 06/19/2014 12:00 AM US EXAM PELVIC [...] 2:37PM Acute bronchitis Apr 23 2017 2:30PM Acute pharyngitis Jun 22 2017 10:29AM Payers Insurance Name Company Name Plan Name Plan Number Policy Number Policy Group Number Start Date [employer] [place] [id number] N/A [employer]BS [employer] [facility] [id number] October History of Encounters Visit Date Visit Type Provider 06/22/2017 Office visit Pepe Young DO 02/23/2017 Office visit Pepe Young DO 11/11/2016 [...] Young DO 01/04/2015 Office visit Wicho Lomeli RESOLUTION AGENT 12/04/2014 Office visit Kulwant Hernandez DO 10/05/2014 [...]
--- NOTE | 2017-07-02 12:33 | Progress Note-Pre Operative ---
Pre-Operative Progress Note H&P Reviewed The H&P was reviewed, patient examined and no changes noted. Date Seen by Provider: Jul 02, 2017 Time Seen by Provider: 12:33 Date H&P Reviewed: Jul 02, 2017 Time H&P Reviewed: 12:33 Pre-Operative Diagnosis: ddysfunctional uterine bleeding/menorrhagia/history of breast cancer XUAN ANTONIO MD Jul 02, 2017 12:33 pm
[2017-07-02] MEDS ORDERED: D5 LR IV SOLUTION 1,000 ML IV SCH (12:34)
--- NOTE | 2017-07-02 12:34 | Progress Note-Post Operative ---
Post-Operative Progess Note Surgeon (s)/Hay Sorter (s) Surgeon XUAN ANTONIO MD Hay Sorter: Kristine Hines Pre-Operative Diagnosis ddysfunctional uterine bleeding/menorrhagia/history of breast cancer Post-Operative Diagnosis same with pathology pending Procedure & Operative Findings Date of Procedure 07/02/17 Procedure Performed/Findings TLH/BSO Anesthesia Type general anesthesia Estimated Blood Loss Estimated blood loss (mL): less than 50cc Specimens/Packing Specimens Removed uterus/fallopian tubes/ovaries Packing: XUAN Feliciano MD Jul 02, 2017 12:34
[2017-07-02] MEDS ORDERED: DOCU-143 PO (12:41)
[2017-07-02] MEDS ORDERED: IBUP-1780 PO (12:41)
[2017-07-02] MEDS ORDERED: OXYC-202 PO (12:41)
--- NOTE | 2017-07-02 12:42 | Discharge Instructions ---
Discharge Instructions Patient Instructions Patient Instructions: as directed Return to The Hospital For: as directed Activity & Diet Discharge Diet: No Restrictions Activity as Tolerated: No Orders-Post D/C & Referrals Follow Up Appt: return to clinic next Wednesday, July 07, 2017 at 930 a.m. for staple removal Call to make follow up appt. for patient in 4 weeks. Activity: Rest for 24 hours, than as tolerated. Wound Care: May remove Band-Aid tomorrow. Replace as desired. Keep incisions clean and dry. Wash daily with soap and water. Please call in RX to patient pharmacy. Diet: As tolerated-Clear Liquids only if nauseated. May shower or tub bathe as desired. No driving for 24 hours, no alcoholic beverages for 24 hours, and nothing per vagina (no tampons, douching, or intercourse) for 8 weeks. Patient to return to the clinic as soon as possible for: Temperature greater than 101F, Severe Pain, Foul discharge from incision or vagina, Excessive Bleeding (more than a period). XUAN ANTONIO MD Jul 02, 2017 12:42 pm
[2017-07-02] MEDS ORDERED: ONDANSETRON 4 MG/2 ML (SDV) Z0FRAN IVP PRN ×2 (12:45→14:30)
[2017-07-02] MEDS ORDERED: PATIENT MAY USE OWN MEDS, ALL MC SCH (12:45)
[2017-07-02] MEDS ORDERED: KETOROLAC 30 MG/ML VIAL IVP SCH (12:45)
[2017-07-02] MEDS ORDERED: PROMETHAZINE INJ 25 MG/ML (PHENERGAN) AMP IM PRN (12:45)
[2017-07-02] MEDS ORDERED: MEPERIDINE (DEMEROL) INJ 100 MG/ML IM PRN (12:45)
[2017-07-02] MEDS ORDERED: GLYCOPYRROLATE 0.2 MG/ML (ROBINUL) 2 ML VIAL ONE (13:32)
[2017-07-02] MEDS ORDERED: NEOSTIGMINE (BLOXIVERZ ) 1 MG/1ML 10 ML VIAL ONE (13:32)
[2017-07-02] MEDS ORDERED: KETOROLAC 30 MG/ML VIAL ONE (14:29)
[2017-07-02] MEDS ORDERED: HYDROmorphone (DILAUDID) 2 MG/ML VIAL IVP PRN (14:30)
[2017-07-02] MEDS: morphine INJ 10 MG/ML 1ML (SYR OR VIAL) IVP PRN ×2 (14:40→14:46)
[2017-07-02 15:20] VITALS: BP 158/86
[2017-07-02] MEDS ORDERED: MEPERIDINE (DEMEROL) INJ 50 MG/ML ONE (15:28)
[2017-07-02 16:16] VITALS: BP 109/71
[2017-07-02 21:10] VITALS: BP 112/69
[2017-07-02] MEDS: KETOROLAC 30 MG/ML VIAL IVP SCH (21:10)
--- NOTE | 2017-07-02 21:35 | OPERATIVE REPORT ---
DATE OF SERVICE: 07/02/2017 PREOPERATIVE DIAGNOSES: Dysfunctional uterine bleeding, menorrhagia and history of breast cancer, on chronic letrozole. POSTOPERATIVE DIAGNOSES: Dysfunctional uterine bleeding, menorrhagia and history of breast cancer, on chronic letrozole. OPERATIVE PROCEDURE: Total laparoscopic hysterectomy with bilateral salpingo-oophorectomy. OPERATIVE DESCRIPTION: With the patient in the supine position under satisfactory general anesthesia, she was repositioned in the dorsal lithotomy position in the [facility] and prepped and draped in the usual fashion for abdominal and vaginal surgery. The urinary bladder was emptied via Page catheter to dependent drainage. Weighted speculum placed in the posterior fornix of the vagina and the cervix exposed and grasped anteriorly with single tooth tenaculum. The uterus was sounded to 10 cm with uterine sound. The cervix was then serially dilated with Marko dilators to accommodate a Estefanía II manipulator, which was placed using a 6 mm x 8 cm uterine probe and a 35 mm colpotomy ring. Sutures of #1Vicryl were placed at 3 and 9 o'clock position and used to affix the specimen to the manipulator. The patient was brought in low dorsal lithotomy position. The tenaculum and speculum were removed from the vagina. A 12 mm incision was made approximately 5 cm superior to the umbilicus. Veress needle was placed through the stab wound just above the umbilicus. Correct placement confirmed with a water drop test and the abdomen was insufflated with 2.4 liters of carbon dioxide. The Veress needle was removed and a 12 mm Optiview laparoscopic port placed through the supraumbilical incision and then the abdominal wall was transilluminated and ports of 8 mm were placed through incisions of those sizes 9 cm lateral to the umbilicus at the level of the umbilicus. We found that the initial supraumbilical port was on the margin of being too short once we tried to dock, so we passed an extended cannula over a blunt probe to maintain our position access. At this point, the instruments were positioned and affixed. The patient was placed in steep Trendelenburg prior to that. The right instrument used for the surgery from this point was a vessel sealer on the left with a bipolar fenestrated grasper. Manipulating the uterus from below, the ovaries and tubes were first examined, the patient had had a tubal sterilization remotely. The appendix was identified, it was somewhat retrocecal, but appeared normal. There was no overt abnormal pathology in consideration of this patient's history of breast cancer. The uterus was multilobular consistent with uterine fibroids. The ovaries were normal in appearance. Decision was made to go ahead with the intended procedure. The right fallopian tube and ovary were grasped. Using the vessel sealer, the IP ligament was clamped, cauterized and divided. The mesovarium was treated in the same manner as was the round ligament, the broad ligament and the cardinal ligament on the right. Same procedure performed on the left with hemostasis being perfectly satisfactory. This allowed for eventual removal of tubes and ovaries with the uterus. The anterior lower uterine segment peritoneum was now divided with monopolar ricky, replacing the vessel sealer. The anterior lower uterine segment peritoneum was dissected down off of the lower uterine segment, taking the bladder with that, exposing the colpotomy ring transabdominally under the vagina. A colpotomy incision was made starting at 12 o'clock position and continuing circumferentially clockwise and counterclockwise until the entire colpotomy ring was exposed. This allowed removal of the uterus with tubes and ovaries still attached through the vagina. The vaginal cuff was then closed with 2 sutures of V-Loc barbed sutures starting first on the right angle and continuing to the midportion of the cuff and bringing the bladder peritoneum back down onto the cuff after its closure with the remaining suture. Care was taken to ensure inclusion of the uterine vessel pedicles and this closure same procedure was performed on the left closing the cuff very nicely. The pelvis was irrigated and examined for hemostasis, which was complete. With no abnormal pathology and the procedure complete, the procedure was terminated. The operative instruments were removed under direct vision as were the ports. The abdomen was evacuated of the insufflating gas in the process of removing the ports. There was no bleeding from the port sites. The skin incisions were stapled after first closing the umbilical incision fascia with a evexfg-ia-dtwik suture of #2-0 Vicryl. Speculum was replaced in the vagina. The vaginal cuff examined and was completely reapproximated and completely hemostasis. Sponge and needle counts were correct at the end of the procedure. Estimated blood loss for procedure was less than 50 mL. The patient tolerated the procedure well and was uneventfully awakened from her general anesthesia and transferred to the recovery room in stable condition with plans for routine convalescent care. Job ID: [id number] DocumentID: [id number] Dictated Date: 07/02/2017 14:11:07 Reservoir Engineering Advisor Date: 07/02/2017 20:54:39 Dictated By: XUAN ANTONIO MD MTDD
[2017-07-02 23:50] VITALS: BP 108/66
[2017-07-03 04:20] VITALS: BP 106/66
[2017-07-03] MEDS: KETOROLAC 30 MG/ML VIAL IVP SCH (04:20)
[2017-07-03 08:13] VITALS: BP 113/71
--- NOTE | 2017-07-03 08:16 | Progress Note-Standard ---
Standard Progress Note Progress Notes/Assess & Plan Date Seen by Provider: Jul 03, 2017 Time Seen by Provider: 08:15 Progress/Assessment & Plan this patient is without complaint. She is ambulating, voiding, told well, has good pain control. She denies chest pain, denies shortness breath, denies headache, denies nausea vomiting. Vital Signs Date Time Temp Pulse Resp B/P (MAP) Pulse Ox O2 Delivery O2 Flow Rate FiO2 07/03/17 04:20 98.4 66 18 106/66 95 Room Air 07/02/17 23:50 98.3 68 18 108/66 94 Room Air 07/02/17 21:10 97.8 68 18 112/69 96 Room Air 07/02/17 16:36 71 96 Nasal Cannula 2.00 07/02/17 16:20 Nasal Cannula 2.00 07/02/17 16:16 97.7 73 16 109/71 86 Room Air 07/02/17 15:20 97.3 65 18 158/86 99 Room Air 07/02/17 13:05 98.0 07/02/17 11:22 96.7 62 18 115/69 97 Room Air vital signs are stable. Patient is afebrile. The abdomen is benign. Extreme show clubbing cyanosis. There is no Homans sign. Assessment and plan postoperative day number 1 doing well. Plan is for discharge home with follow-up in clinic. Final Diagnosis DUB/menorrhagia XUAN ANTONIO MD Jul 03, 2017 8:16 am
[2017-07-03] MEDS: oxyCODONE/APAP 10/325MG (PERCOCET 10) TABLET PO PRN ×2 (08:37→09:33)
[2017-07-03] MEDS ORDERED: DOCUSATE SODIUM 100 MG (COLACE) CAP PO SCH (09:00)
[2017-07-03] MEDS ORDERED: IBUPROFEN 800 MG (MOTRIN) TAB PO ONE (09:35)
[2017-07-03] MEDS ORDERED: IBUPROFEN 800 MG (MOTRIN) TAB PO SCH (14:00)
== END 2017-07-03 09:55 | disposition home or self-care (01) ==
LOC: SDC 10:56 → WS 15:20 → SDC 07-03 09:55
PROVIDERS: ATTEND Obstetrics & Gynecology
DX: N93.8 Other specified abnormal uterine and vaginal bleeding (principal); N92.0 Excessive and frequent menstruation with regular cycle; N72 Inflammatory disease of cervix uteri; D25.1 Intramural leiomyoma of uterus; N83.12 Corpus luteum cyst of left ovary; C50.911 Malignant neoplasm of unspecified site of right female breast; I10 Essential (primary) hypertension; Z79.811 Long term (current) use of aromatase inhibitors; Z79.82 Long term (current) use of aspirin; Z79.899 Other long term (current) drug therapy; Z92.21 Personal history of antineoplastic chemotherapy; Z92.3 Personal history of irradiation
CPT/HCPCS: 84703; 94664

== ENCOUNTER 2019-09-04 11:15 | Outpatient (CLI) | payer BC ==
[~2019-09-04] VITALS: Ht 177.8 cm; Wt 75.0 kg
[~2019-09-04 11:15] MED LIST changes: -CITA20TA7 PO; +CITA20TA9 PO; +DOCU-143 PO; +IBUP-1780 PO; -LOSA50TA36 PO; +LOSA50TA63 PO; +OXYC1TAB12 PO; +VITA-272 PO; -VITA400C58 PO
[2019-09-04] MEDS ORDERED: OMEP40CA27 PO (11:29)
[2019-09-04] MEDS ORDERED: MV-M1TAB57 PO (11:29)
== END 2019-09-04 11:31 | disposition home or self-care (01) ==
LOC: PREOP 11:15
PROVIDERS: ATTEND Surgery
DX: Z01.818 Encounter for other preprocedural examination (principal)

== ENCOUNTER 2019-09-06 10:38 | Day surgery (SDC) | payer BC ==
--- NOTE | 2019-09-04 07:04 | HISTORY AND PHYSICAL ---
DATE OF SERVICE: PROCEDURE DATE: 09/06/2019. ATTENDING PRIMARY CARE PHYSICIAN: Dr. CORLEY and Dr. Keys. HISTORY: The patient is a 49-year-old female who was referred over to us in need of a screening colonoscopy. The patient reports at this point in life, she has never had a colonoscopy done before. She denies any blood in her stool. There is no family history of colon cancer. She denies any diarrhea, constipation or any abdominal pain. PAST MEDICAL HISTORY: Gastroesophageal reflux disease, obesity, right breast cancer in 2012, and hypertension. PAST SURGICAL HISTORY: Right breast lumpectomy and sentinel node in 2012, complete hysterectomy in 06/2017, and laparoscopic gastric sleeve resection in 07/2018. ALLERGIES: No known drug allergies. MEDICATIONS: Omeprazole 40 mg daily, vitamin D with daily, multivitamin daily. SOCIAL HISTORY: Negative for smoking, negative for alcohol. FAMILY HISTORY: Mother and father, hypertension. VITAL SIGNS: Blood pressure is 110/50. Current weight is 166.3 pounds at 5 feet 10 inches. REVIEW OF SYSTEMS: This is a well-nourished female, in no acute distress. She is not experiencing any shortness of breath or difficulty breathing. No chest pain, palpitations, or diaphoresis. No nausea, vomiting or abdominal pain. No diarrhea or constipation. No red blood per rectum. No dark tarry stools. No fever or chills. No recent inadvertent weight loss. All other review of systems negative. PHYSICAL EXAMINATION: CHEST: Clear. Good breath sounds bilaterally. HEART: Regular, no murmurs. EXTREMITIES: No lower extremity edema. Negative Homans sign. HEENT: Scleral icterus. NECK: No cervical lymphadenopathy. ABDOMEN: Soft, nontender, nondistended. SKIN: Warm, dry and pink. NEUROLOGIC: Awake, alert and oriented x3. ASSESSMENT AND PLAN: A 49-year-old female who is in need of a screening colonoscopy. The risks and benefits of the procedure as well as the procedure and home care instructions were explained to the patient. The patient verbalized understanding of instructions and agrees to proceed as planned. At this time, we will proceed with scheduling the patient for a screening colonoscopy. Job ID: [id number] DocumentID: [id number] Dictated Date: 08/29/2019 16:23:43 Twitchell Operator Date: 08/29/2019 16:37:50 Dictated By: CARLA FAM APRN
[~2019-09-06] VITALS: Ht 177.8 cm; Wt 75.0 kg
[2019-09-06] VITALS (12 sets, daily range): BP systolic 95–140; BP diastolic 54–85
[~2019-09-06 10:38] MED LIST changes: +MV-M1TAB57 PO; +OMEP40CA27 PO
[2019-09-06] MEDS ORDERED: HYDROcodone/APAP 5 MG/325 MG (LORTAB) TAB PO PRN (10:45)
[2019-09-06] MEDS ORDERED: morphine INJ 10 MG/ML 1ML (SYR OR VIAL) IVP PRN ×2 (10:45)
[2019-09-06] MEDS ORDERED: ONDANSETRON 4 MG/2 ML (SDV) Z0FRAN IVP PRN (10:45)
[2019-09-06] MEDS ORDERED: ACETAMINOPHEN 325 MG TABLET PO PRN (10:45)
--- NOTE | 2019-09-06 10:45 | Conscious Sedation/ASA ---
Conscious Sedation Pre-Proced Time 10:30 ASA Score 2 For ASA 3 and 4: Consider anesthesia and medical clearance. Also, for patients with a history of failed moderate sedation consider anesthesia. Airway Lungs Heart ASA score ASA 1: a normal healthy patient ASA 2: a patient with a mild systemic disease (mid diabetes, controlled hypertension, obesity ASA 3: a patient with a severe systemic disease that limits activity (angina, COPD, prior Myocardial infarction) ASA 4: a patient with an incapacitating disease that is a constant threat to life (CHF, renal failure) ASA 5: a moribund patient not expected to survive 24 hrs. (ruptured aneurysm) ASA 6: a declared brain- patient whose organs are being harvested. For emergent operations, add the letter E after the classification Mallampati Classification Grade 2 Sedation Plan Analgesia, Amnesia, Plan communicated to team members, Discussed options with patient/fam, Discussed risks with patient/fam The patient is an appropriate candidate to undergo the planned procedure, sedation, and anesthesia. The patient immediately re-assessed prior to indication. JUSTICE BETHEA MD Sep 06, 2019 10:45
--- NOTE | 2019-09-06 10:45 | Progress Note-Pre Operative ---
Pre-Operative Progress Note H&P Reviewed The H&P was reviewed, patient examined and no changes noted. Date Seen by Provider: Sep 06, 2019 Time Seen by Provider: 10:30 Date H&P Reviewed: Sep 06, 2019 Time H&P Reviewed: 10:30 Pre-Operative Diagnosis: screening colonscopy JUSTICE BETHEA MD Sep 06, 2019 10:45
--- NOTE | 2019-09-06 10:47 | Discharge Inst-Surgical ---
D/C Lap Instructions-NEEMA Follow Up Activity as tolerated High Fiber Diet 25g or more per day Avoid Alcohol, Caffeine, Spicy Wallace and Acid foods. Drink 64 fluid oz or more of fluids per day. Symptoms to Report: Fever over 101 degree F, Nausea/Vomiting If any problems/questions: Contact your physician or go to Emergency Room JUSTICE BETHEA MD Sep 06, 2019 10:47
[2019-09-06] MEDS ORDERED: NS IV 500 ML 500 ML IV PRN (10:49)
[2019-09-06] MEDS ORDERED: NS IV 500 ML 500 ML ONE (10:50)
[2019-09-06] MEDS ORDERED: fentaNYL INJECTION 100 MCG/2 ML AMP IVP ONE (11:00)
[2019-09-06] MEDS ORDERED: LIDOCAINE JELLY 2% 6 ML SYRINGE MM PRN (11:00)
[2019-09-06] MEDS ORDERED: MIDAZOLAM 5 MG/5 ML (VERSED) VIAL ONE ×2 (12:41→12:42)
[2019-09-06] MEDS ORDERED: fentaNYL INJECTION 100 MCG/2 ML AMP ONE (12:42)
[2019-09-06] MEDS ORDERED: LIDOCAINE JELLY 2% 6 ML SYRINGE ONE (12:42)
[2019-09-06] MEDS: MIDAZOLAM 5 MG/5 ML (VERSED) VIAL IV PRN ×4 (12:45→13:00)
--- NOTE | 2019-09-06 20:50 | OPERATIVE REPORT ---
DATE OF SERVICE: 09/06/2019 ATTENDING PRIMARY CARE PHYSICIAN: Dr. Pepe Young. PREOPERATIVE DIAGNOSIS: Screening colonoscopy with personal history of breast cancer. POSTOPERATIVE DIAGNOSIS: Mild chronic stage II external and internal hemorrhoids. Remainder of the rectum and colon were normal. PROCEDURE: Colonoscopy. SURGEON: Justice Bethea MD. ANESTHESIA: Conscious sedation. ESTIMATED BLOOD LOSS: Minimal. FINDINGS: Mild chronic stage II external and internal hemorrhoids. Remainder of the rectum and colon were normal. DISPOSITION: The patient tolerated the procedure well. INDICATIONS: The patient is a 49-year-old female who is referred over to us for screening colonoscopy. She has not had a colonoscopy up to this point in her life. She states that for the most part she is doing well, does not report any major issues with diarrhea nor constipation as well as no red blood per rectum nor any dark tarry stools. She does have a personal history of breast cancer diagnosed at age 42 and she underwent right breast lumpectomy and sentinel node. The sentinel node was negative and did not require a lymph node dissection. She also does not report any chemotherapy and most likely this was an early type of lesion. She does not report any family history of any other cancers. DESCRIPTION OF PROCEDURE: The patient was brought to the endoscopy suite, laid in left lateral decubitus position. After adequate IV pain and stated medications and conscious sedation anesthesia, a digital rectal examination was performed. Chronic stage II external and internal hemorrhoids were identified, which were not actively edematous nor inflamed and no bleeding. Normal sphincter tone was felt and there were no palpable masses. The endoscope was then intubated to the anus and rectum gently insufflated. The endoscope was then advanced through the valves of Ryder of the rectum with no polyps or any neoplasms identified. Through the sigmoid colon, no diverticulosis identified. We then proceeded through the remainder of the descending, transverse and ascending colon to the cecum. These segments were normal as well. No polyps or any neoplasms identified throughout the colon or rectum. The endoscope was then slowly withdrawn while taking a second look and suctioning residual air with no additional findings. The patient tolerated the procedure well. We will recommend a high fiber diet with 25 grams of fiber daily as well as significant amount of water to promote soft stools on a daily basis. She does not have a family history of colon cancer; however, she does have a personal history of breast cancer and if she wishes for earlier screening to every 5 years, this would be acceptable. Job ID: [id number] DocumentID: [id number] Dictated Date: 09/06/2019 13:19:37 Manager Travel Date: 09/06/2019 20:49:39 Dictated By: JUSTICE BETHEA MD
== END 2019-09-06 14:04 | disposition home or self-care (01) ==
LOC: ENDO 10:38
PROVIDERS: ATTEND Surgery
DX: Z12.11 Encounter for screening for malignant neoplasm of colon (principal); K64.4 Residual hemorrhoidal skin tags; K64.1 Second degree hemorrhoids; K21.9 Gastro-esophageal reflux disease without esophagitis; I10 Essential (primary) hypertension; Z90.11 Acquired absence of right breast and nipple; Z90.710 Acquired absence of both cervix and uterus; Z79.899 Other long term (current) drug therapy; Z85.3 Personal history of malignant neoplasm of breast; Z82.49 Family history of ischemic heart disease and other diseases of the circulatory system